=== PATIENT | male | born 1935 | race Caucasian/White ===

== ENCOUNTER 2019-01-26 17:29 | Emergency (ER) | payer MEDICARE, OTHER ==
[2019-01-26] MEDS ORDERED: SODIUM CHLORIDE 0.9% 500 ML 500 ML IV STA (18:48)
--- NOTE | 2019-01-26 19:06 | ED ---
General Adult HPI - General Source: patient, RN notes reviewed, old records reviewed Mode of arrival: wheelchair Limitations: no limitations <Fidencio Pereyra - Last Filed: 01/26/19 22:50> <Maryam Mantilla - Last Filed: 01/28/19 07:20> - General Chief complaint: Dizziness Stated complaint: DIZZY Time Seen by Provider: 01/26/19 18:30 - History of Present Illness Initial comments: 83-year-old male patient presents to ED with chief complaint of disequilibrium. Patient was that has been ongoing for approximately 2 years however has been worse within the last 2 months and then has also been worse in the last 2 days. Patient reports that while walking he has difficulty maintaining a sense of balance. Patient denies any symptoms while at rest. Patient denies any recent falls or trauma. Patient denies any circumstances of facial droop, paresthesias, weakness in upper or lower extremities. Has a personal history of stroke. Patient has a chest pain shortness breath abdominal pain nausea vomiting or diarrhea. Denies any auditory sensations, tinnitus. Denies any other complaints at this time. Systemic: Pt denies fatigue, fever/chills, rash. Pt denies weakness, night sweats, weight loss. Neuro: Pt denies headache, visual disturbances, syncope or pre-syncope. HEENT: Pt denies ocular discharge or irritation, otalgia, rhinorrhea, pharyngitis or notable lymphadenopathy. Cardiopulmonary: Pt denies chest pain, SOB, heart palpitations, dyspnea on exertion. Abdominal/GI: Pt denies abdominal pain, n/v/d. : Pt denies dysuria, burning w/ urination, frequency/urgency. Denies new onset urinary or bowel incontinence. MSK: Pt denies myalgia, loss of strength or function in extremities. Neuro: Pt denies new onset weakness, paresthesias. (Fidencio Pereyra) - Related Data Home Medications Medication Instructions Recorded Confirmed Clopidogrel Bisulfate [Plavix] 75 mg PO DAILY 12/12/14 01/26/19 Irbesartan [Avapro] 300 mg PO DAILY 12/12/14 01/26/19 Metoprolol Succinate [Toprol XL] 50 mg PO DAILY 12/12/14 01/26/19 Niacin [Niaspan] 1,000 mg PO HS 12/12/14 01/26/19 Pravastatin Sodium [Pravachol] 20 mg PO DAILY 12/12/14 01/26/19 amLODIPine [Norvasc] 5 mg PO DAILY 12/12/14 01/26/19 Aspirin EC [Ecotrin Low Dose] 81 mg PO DAILY 01/26/19 01/26/19 Desloratadine 5 mg PO DAILY 01/26/19 01/26/19 Glimepiride [Amaryl] 4 mg PO BID 01/26/19 01/26/19 Levothyroxine Sodium [Synthroid] 25 mcg PO DAILY 01/26/19 01/26/19 Spironolactone-Hctz 25-25Mg 0.5 tab PO DAILY 01/26/19 01/26/19 [Aldactazide 25-25Mg] Previous Rx's Medication Instructions Recorded Meclizine [Antivert] 25 mg PO TID #20 tab 12/12/14 Allergies Allergy/AdvReac Type Severity Reaction Status Date / Time No Known Allergies Allergy Verified 01/26/19 18:30 Review of Systems ROS Other: All systems not noted in ROS Statement are negative. <Fidencio Pereyra - Last Filed: 01/26/19 22:50> ROS Other: All systems not noted in ROS Statement are negative. <Maryam Mantilla - Last Filed: 01/28/19 07:20> ROS Statement: Those systems with pertinent positive or pertinent negative responses have been documented in the HPI. Past Medical History Past Medical History: Diabetes Mellitus, Hypertension History of Any Multi-Drug Resistant Organisms: None Reported Past Surgical History: Adenoidectomy, Heart Catheterization With Stent, Tonsillectomy Additional Past Surgical History / Comment(s): open heart Past Anesthesia/Blood Transfusion Reactions: No Reported Reaction Date of Last Stent Placement:: unknown Past Psychological History: No Psychological Hx Reported Smoking Status: Former smoker Past Alcohol Use History: None Reported Past Drug Use History: None Reported <Fidencio Pereyra - Last Filed: 01/26/19 22:50> General Exam Limitations: no limitations <Fidencio Pereyra - Last Filed: 01/26/19 22:50> - General Exam Comments Initial Comments: Constitutional: NAD, AOX3, Pt has pleasant affect. HEENT: NC/AT, trachea midline, neck supple, no lymphadenopathy. Posterior pharynx non erythematous, without exudates. External ears appear normal, without discharge. Mucous membranes moist. Eyes PERRLA, EOM intact. There is no scleral icterus. No pallor noted. Cardiopulmonary: RRR, no murmurs, rubs or gallops, no JVD noted. Lungs CTAB in anterior and posterior almodovar. No peripheral edema. Abdominal exam: Abdomen soft and non-distended. Abdomen non-tender to palpation in all 4 quadrants. Bowel sounds active in LLQ. No hepatosplenomegaly. No ecchymosis Neuro: CN II-XII intact. No nuchal rigidity. No raccon eyes, no more sign, no hemotympanum. No cervical spinal tenderness. NIH 0. MSK: No posterior calf tenderness bilaterally, homans sign negative bilaterally. Posterior tibialis and radial pulse +2 bilaterally. Sensation intact in upper and lower extremities. Full active ROM in upper and lower extremities, 5/5 stregnth. (Fidencio Pereyra) Course Vital Signs 01/26/19 01/26/19 01/26/19 18:09 20:05 20:48 Temperature 98.6 F Pulse Rate 68 62 61 Respiratory 18 18 18 Rate Blood Pressure 147/90 139/63 130/77 O2 Sat by Pulse 99 98 97 Oximetry 01/26/19 22:09 Temperature 97.9 F Pulse Rate 74 Respiratory 16 Rate Blood Pressure 166/69 O2 Sat by Pulse 99 Oximetry Medical Decision Making - Lab Data Result diagrams: 01/26/19 19:21 01/26/19 18:49 - EKG Data -: EKG Interpreted by Me (and Dr. Mantilla ) <Fidencio Pereyra - Last Filed: 01/26/19 22:50> - Lab Data Result diagrams: 01/26/19 19:21 01/26/19 18:49 <Maryam Mantilla - Last Filed: 01/28/19 07:20> - Medical Decision Making 83-year-old male patient presents to ED with chief complaint of disequilibrium. Patient was that has been ongoing for approximately 2 years however has been worse within the last 2 months and then has also been worse in the last 2 days. Patient reports that while walking he has difficulty maintaining a sense of balance. Patient denies any symptoms while at rest. Patient denies any recent falls or trauma. Patient denies any circumstances of facial droop, paresthesias, weakness in upper or lower extremities. Has a personal history of stroke. Patient has a chest pain shortness breath abdominal pain nausea vomiting or diarrhea. Denies any auditory sensations, tinnitus. Denies any o ther complaints at this time. Patient vital signs stable, afebrile. Physical exam did not acute pathology. Neurologic exam within normal limits. No nystagmus. Laboratory investigations revealed moderate impressive CBC, CMP. Troponin negative. TSH within couple limits. K do not concerning for acute ischemia. CT of brain revealed mild generalized atrophy and changes of chronic small vessel ischemic disease, no acute intracranial abnormality. Severe chronic pansinusitis sees. Patient was discharged, will follow up with neurologist tomorrow. Patient returned yet patient worsens. Patient to follow up with primary care starting tomorrow. Case discussed with Dr. Mantilla. (Fidencio Pereyra) I was available for consultation in the emergency department. The history and physical exam were done by the midlevel provider. I was consulted for this patient's care. I reviewed the case with the midlevel provider and based on their presentation of the patient, I agree with the assessment, medical decision making and plan of care as documented. Chart was dictated using [employer] dictation software. Attempts were made to correct any dictation errors however some typographical errors may persist. (Maryam Mantilla) - Lab Data Lab Results 01/26/19 01/26/19 01/26/19 Range/Units 18:49 19:21 19:21 WBC 5.2 (3.8-10.6) k/uL RBC 3.61 L (4.30-5.90) m/uL Hgb 13.0 (13.0-17.5) gm/dL Hct 39.2 (39.0-53.0) % MCV 108.5 H (80.0-100.0) fL MCH 35.9 H (25.0-35.0) pg MCHC 33.1 (31.0-37.0) g/dL RDW 15.7 H (11.5-15.5) % Plt Count 143 L (150-450) k/uL Neutrophils % (Manual) 50 % Band Neutrophils % 1 % Lymphocytes % (Manual) 31 % Monocytes % (Manual) 6 % Eosinophils % (Manual) 12 % Neutrophils # (Manual) 2.60 (1.3-7.7) k/uL Lymphocytes # (Manual) 1.61 (1.0-4.8) k/uL Monocytes # (Manual) 0.31 (0-1.0) k/uL Eosinophils # (Manual) 0.62 (0-0.7) k/uL Nucleated RBCs 0 (0-0) /100 WBC Manual Slide Review Performed Macrocytosis Marked A Sodium 140 (137-145) mmol/L Potassium 4.5 (3.5-5.1) mmol/L Chloride 103 (98-107) mmol/L Carbon Dioxide 27 (22-30) mmol/L Anion Gap 10 mmol/L BUN 16 (9-20) mg/dL Creatinine 0.91 (0.66-1.25) mg/dL Est GFR (CKD-EPI)AfAm 89 (>60 ml/min/1.73 sqM) Est GFR (CKD-EPI)NonAf 77 (>60 ml/min/1.73 sqM) Glucose 148 H (74-99) mg/dL Calcium 9.7 (8.4-10.2) mg/dL Magnesium 2.0 (1.6-2.3) mg/dL Total Bilirubin 0.9 (0.2-1.3) mg/dL AST 23 (17-59) U/L ALT 16 L (21-72) U/L Alkaline Phosphatase 79 (38-126) U/L Troponin I <0.012 (0.000-0.034) ng/mL Total Protein 7.6 (6.3-8.2) g/dL Albumin 4.7 (3.5-5.0) g/dL TSH 4.580 (0.465-4.680) mIU/L Urine Color Urine Appearance (Clear) Urine pH (5.0-8.0) Ur Specific [place] (1.001-1.035) Urine Protein (Negative) Urine Glucose (UA) (Negative) Urine Ketones (Negative) Urine Blood (Negative) Urine Nitrite (Negative) Urine Bilirubin (Negative) Urine Urobilinogen (<2.0) mg/dL Ur Leukocyte Esterase (Negative) Urine WBC (0-5) /hpf Ur Squamous Epith Cells (0-4) /hpf Hyaline Casts (0-2) /lpf Urine Mucus (None) /hpf 06/30/19 Range/Units 20:47 WBC (3.8-10.6) k/uL RBC (4.30-5.90) m/uL Hgb (13.0-17.5) gm/dL Hct (39.0-53.0) % MCV (80.0-100.0) fL MCH (25.0-35.0) pg MCHC (31.0-37.0) g/dL RDW (11.5-15.5) % Plt Count (150-450) k/uL Neutrophils % (Manual) % Band Neutrophils % % Lymphocytes % (Manual) % Monocytes % (Manual) % Eosinophils % (Manual) % Neutrophils # (Manual) (1.3-7.7) k/uL Lymphocytes # (Manual) (1.0-4.8) k/uL Monocytes # (Manual) (0-1.0) k/uL Eosinophils # (Manual) (0-0.7) k/uL Nucleated RBCs (0-0) /100 WBC Manual Slide Review Macrocytosis Sodium (137-145) mmol/L Potassium (3.5-5.1) mmol/L Chloride (98-107) mmol/L Carbon Dioxide (22-30) mmol/L Anion Gap mmol/L BUN (9-20) mg/dL Creatinine (0.66-1.25) mg/dL Est GFR (CKD-EPI)AfAm (>60 ml/min/1.73 sqM) Est GFR (CKD-EPI)NonAf (>60 ml/min/1.73 sqM) Glucose (74-99) mg/dL Calcium (8.4-10.2) mg/dL Magnesium (1.6-2.3) mg/dL Total Bilirubin (0.2-1.3) mg/dL AST (17-59) U/L ALT (21-72) U/L Alkaline Phosphatase (38-126) U/L Troponin I (0.000-0.034) ng/mL Total Protein (6.3-8.2) g/dL Albumin (3.5-5.0) g/dL TSH (0.465-4.680) mIU/L Urine Color Yellow Urine Appearance Clear (Clear) Urine pH 5.5 (5.0-8.0) Ur Specific [place] 1.019 (1.001-1.035) Urine Protein 1+ H (Negative) Urine Glucose (UA) Trace H (Negative) Urine Ketones Negative (Negative) Urine Blood Negative (Negative) Urine Nitrite Negative (Negative) Urine Bilirubin Negative (Negative) Urine Urobilinogen <2.0 (<2.0) mg/dL Ur Leukocyte Esterase Negative (Negative) Urine WBC 1 (0-5) /hpf Ur Squamous Epith Cells <1 (0-4) /hpf Hyaline Casts 1 (0-2) /lpf Urine Mucus Rare H (None) /hpf - EKG Data EKG Comments: Ventricular rate 64, UT interval 176, QRS 82, QT/QTC 390/40. Normal sinus rhythm, normal EKG, no concern for acute ischemia. (Fidencio Pereyra) Disposition Is patient prescribed a controlled substance at d/c from ED?: No <Fidencio Pereyra - Last Filed: 01/26/19 22:50> <Maryam Mantilla - Last Filed: 01/28/19 07:20> Clinical Impression: Disequilibrium Disposition: HOME SELF-CARE Condition: Stable Instructions (If sedation given, give patient instructions): Dizziness (ED) Additional Instructions: Patient to adhere to previously discussed treatment plan and will take medication(s) as directed. Patient to follow up with PCP in 1-2 days. Patient to return to ED if symptoms do not improve. Follopw up with primary care provider tomorrow. Follow-up with neurologist tomorrow. Return to ER if condition worsens. Referrals: Mayur Song MD [Primary Care Provider] - 1-2 days Anne Genao MD [Medical Doctor] - 1-2 days Benja Tucker MD [STAFF PHYSICIAN] - 1-2 days
[2019-01-26 20:04] LABS: HCT 39.2 % (39.0-53.0); MCH 35.9 pg (25.0-35.0); MCHC 33.1 g/dL (31.0-37.0); MCV 108.5 fL (80.0-100.0); Macrocytosis Marked; Mean Platelet Volume 9.3; Platelet Count 143 k/uL (150-450); RBC 3.61 m/uL (4.30-5.90); RDW 15.7 % (11.5-15.5); WBC 5.2 k/uL (3.8-10.6)
[2019-01-26 20:22] LABS: Albumin 4.7 g/dL (3.5-5.0); Calcium 9.7 mg/dL (8.4-10.2); Potassium 4.5 mmol/L (3.5-5.1); Total Bilirubin 0.9 mg/dL (0.2-1.3); Total Protein 7.6 g/dL (6.3-8.2)
[2019-01-26 20:36] LABS: Band Neutrophils % 1 %; Eosinophils # (M) 0.62 k/uL (0-0.7); Lymphocytes # (M) 1.61 k/uL (1.0-4.8); Monocytes # (M) 0.31 k/uL (0-1.0); Neutrophils % (M) 50 %; Nucleated Red Blood Cells 0 /100 WBC (0-0); Total Cells Counted 100
--- NOTE | 2019-01-26 20:44 | CT ---
EXAMINATION TYPE: CT brain wo con DATE OF EXAM: 01/26/2019 COMPARISON: 12/12/2014 HISTORY: 83-year-old male Dizziness. TECHNIQUE: Examination was done in axial plane without intravenous contrast. Coronal and sagittal r econstructions performed. CT DLP: 1074.4 mGycm Automated exposure control for dose reduction was used. FINDINGS: There is no evidence of acute intracranial hemorrhage, acute ischemic changes, mass, mass-effect, or extra-axial fluid collection. There is no effacement of cerebral sulci or basal subarachnoid cister ns. There is no hydrocephalus. There is no midline shift. Chatman-white matter distinction is preserv ed. Severe mucosal thickening ethmoid air cells, left maxillary sinus, and left frontal sinus. Mastoid ai r cells well pneumatized. Mild generalized supratentorial volume loss with moderate patchy white matter hypodensities in both c erebral hemispheres. Benign left basal ganglionic calcifications with lacunar infarct left basal gang loan redemonstrated. IMPRESSION: 1. Mild generalized atrophy and changes of chronic small vessel ischemic disease. No acute intracrani al abnormality seen. 2. Severe chronic pansinusitis disease.
[2019-01-26 22:04] LABS: Appearance,Urine Clear (Clear); Bilirubin,Urine Negative (Negative); Blood,Urine Negative (Negative); Color,Urine Yellow; Glucose,Urine (UA) Trace (Negative); Hyaline Casts,Urine 1 /lpf (0-2); Ketones,Urine Negative (Negative); Leukocyte Esterase,Urine Negative (Negative); Mucus,Urine Rare /hpf; Nitrite,Urine Negative (Negative); PH, Urine 5.5 (5.0-8.0); Protein,Urine 1+ (Negative); Specific Gravity,Urine 1.019 (1.001-1.035); Squamous Epithelial Cell,Urine <1 /hpf (0-4); Urobilinogen,Urine <2.0 mg/dL (<2.0); WBC,Urine 1 /hpf (0-5)
[2019-01-26 22:10] VITALS: BP 166/69; PULSE 74; RESP 16; TEMP 97.9
== END 2019-01-26 22:23 | disposition home or self-care (01) ==
LOC: EC 17:29
DX: E87.8 Other disorders of electrolyte and fluid balance, not elsewhere classified (principal); G31.9 Degenerative disease of nervous system, unspecified; E11.9 Type 2 diabetes mellitus without complications; I10 Essential (primary) hypertension; Z87.891 Personal history of nicotine dependence; Z79.01 Long term (current) use of anticoagulants; Z79.82 Long term (current) use of aspirin; Z79.84 Long term (current) use of oral hypoglycemic drugs; Z79.890 Hormone replacement therapy; Z79.899 Other long term (current) drug therapy; Z95.5 Presence of coronary angioplasty implant and graft
CPT/HCPCS: 36415; 70450; 80053; 81001; 83735; 84443; 84484; 85025; 93005; 96360; 96361; 99285

== ENCOUNTER 2019-07-31 10:33 | Inpatient (IN) | payer MEDICARE ==
[2019-07-31] MEDS ORDERED: ASPIRIN 81 MG PO STA (10:54)
--- NOTE | 2019-07-31 11:19 | XR ---
EXAMINATION TYPE: XR chest 2V DATE OF EXAM: 07/31/2019 COMPARISON: 12/12/2014 TECHNIQUE: PA and lateral views submitted. HISTORY: Shortness of breath FINDINGS: Postsurgical changes with atherosclerotic change aorta. Bibasilar subsegmental consolidation and tiny effusion. Heart size is stable. Mild central interstitial prominence. No overt failure. IMPRESSION: 1. Tiny bilateral pleural effusions or pleural thickening correlate clinically. 2. Mild central interstitial prominence could been the basis of bronchitis or interstitial lung disea se. Correlate clinically to exclude vascular congestion.
[2019-07-31 11:26] LABS: MCH 39.4 pg (25.0-35.0); MCHC 35.4 g/dL (31.0-37.0); MCV 111.4 fL (80.0-100.0); Macrocytosis Marked; Mean Platelet Volume 14.9; RBC 1.72 m/uL (4.30-5.90); RDW 15.5 % (11.5-15.5)
[2019-07-31 11:29] LABS: Glucose,Whole Blood 256 mg/dL (75-99)
[2019-07-31 11:30] LABS: Albumin 3.9 g/dL (3.5-5.0); Calcium 9.3 mg/dL (8.4-10.2); Magnesium 2.1 mg/dL (1.6-2.3); Potassium 5.3 mmol/L (3.5-5.1); Total Protein 6.6 g/dL (6.3-8.2)
[2019-07-31] MEDS ORDERED: INSULIN ASPART (NovoLOG) 100 UNIT/ML VIAL SQ ONE (11:35)
[2019-07-31 11:58] LABS: HCT 19.1 % (39.0-53.0)
[2019-07-31 12:00] LABS: HGB 6.8 gm/dL (13.0-17.5)
[2019-07-31 12:01] LABS: Platelet Count 15 k/uL (150-450)
[2019-07-31 12:10] LABS: INR 1.2 (<1.2); Partial Thromboplastin Time 23.5 sec (22.0-30.0); Prothrombin Time 12.4 sec (9.0-12.0)
[2019-07-31 12:21] LABS: Myelocytes # (M) 0.06 k/uL (0); Myelocytes % 2 %; Neutrophils % (M) 42 %; Nucleated Red Blood Cells 2 /100 WBC (0-0); Total Cells Counted 200
[2019-07-31 12:22] LABS: Eosinophils # (M) 0.27 k/uL (0-0.7); Lymphocytes # (M) 1.26 k/uL (1.0-4.8); Monocytes # (M) 0.18 k/uL (0-1.0); Neutrophils # (M) 1.26 k/uL (1.3-7.7)
--- NOTE | 2019-07-31 12:27 | ED ---
General Adult HPI - General Chief complaint: Shortness of Breath Stated complaint: SOB Time Seen by Provider: 07/31/19 10:44 Source: patient, RN notes reviewed, old records reviewed Mode of arrival: wheelchair Limitations: no limitations - History of Present Illness Initial comments: 84-year-old with past history of type 2 diabetes, hypertension, CABG appr oximately 20 years ago presents to the chief complaint approximate 1 month of progressive dyspnea with exertion. Denies any chest pain. Denies any pain in any locations. Denies any other complaints. Systemic: Pt denies fatigue, fever/chills, rash. Pt denies weakness, night sweats, weight loss. Neuro: Pt denies headache, visual disturbances, syncope or pre-syncope. HEENT: Pt denies ocular discharge or irritation, otalgia, rhinorrhea, pharyngitis or notable lymphadenopathy. Cardiopulmonary: Pt denies chest pain, heart palpitations, dyspnea on exertion. Abdominal/GI: Pt denies abdominal pain, n/v/d. : Pt denies dysuria, burning w/ urination, frequency/urgency. Denies new onset urinary or bowel incontinence. MSK: Pt denies myalgia, loss of strength or function in extremities. Neuro: Pt denies new onset weakness, paresthesias. - Related Data Home Medications Medication Instructions Recorded Confirmed Clopidogrel Bisulfate [Plavix] 75 mg PO DAILY 12/12/14 07/31/19 Irbesartan [Avapro] 300 mg PO DAILY 12/12/14 07/31/19 Metoprolol Succinate [Toprol XL] 50 mg PO DAILY 12/12/14 07/31/19 Niacin [Niaspan] 1,000 mg PO HS 12/12/14 07/31/19 Pravastatin Sodium [Pravachol] 20 mg PO DAILY 12/12/14 07/31/19 amLODIPine [Norvasc] 5 mg PO DAILY 12/12/14 07/31/19 Aspirin EC [Ecotrin Low Dose] 81 mg PO DAILY 01/26/19 07/31/19 Desloratadine 5 mg PO DAILY 01/26/19 07/31/19 Glimepiride [Amaryl] 4 mg PO BID 01/26/19 07/31/19 Levothyroxine Sodium [Synthroid] 25 mcg PO DAILY 06/30/19 01/02/20 Spironolactone-Hctz 25-25Mg 0.5 tab PO DAILY 01/26/19 07/31/19 [Aldactazide 25-25Mg] Brimonidine Tartrate/Timolol 1 drop BOTH EYES BID 07/31/19 07/31/19 [Combigan 0.2%-0.5% Eye Drops] Insulin Glargine,Hum.rec.anlog 50 unit SQ QAM 07/31/19 07/31/19 [Nata Smith] Netarsudil Mesylat/Latanoprost 1 drop BOTH EYES BID 07/31/19 07/31/19 [Rocklatan 0.02%-0.005% Eye Drp] Allergies Allergy/AdvReac Type Severity Reaction Status Date / Time insulin degludec Allergy Rash/Hives Verified 07/31/19 11:53 [From TresiWochit FlexTouch U-100] Review of Systems ROS Statement: Those systems with pertinent positive or pertinent negative responses have been documented in the HPI. ROS Other: All systems not noted in ROS Statement are negative. Past Medical History Past Medical History: Diabetes Mellitus, Hypertension History of Any Multi-Drug Resistant Organisms: None Reported Past Surgical History: Adenoidectomy, Heart Catheterization With Stent, Tonsillectomy Additional Past Surgical History / Comment(s): open heart Past Anesthesia/Blood Transfusion Reactions: No Reported Reaction Date of Last Stent Placement:: unknown Past Psychological History: No Psychological Hx Reported Smoking Status: Former smoker Past Alcohol Use History: None Reported Past Drug Use History: None Reported General Exam - General Exam Comments Initial Comments: Constitutional: NAD, AOX3, Pt has pleasant affect. HEENT: NC/AT, trachea midline, neck supple, no lymphadenopathy. Posterior pharynx non erythematous, without exudates. External ears appear normal, without discharge. Mucous membranes moist. Eyes PERRLA, EOM intact. There is no scleral icterus. No pallor noted. Cardiopulmonary: RRR, no murmurs, rubs or gallops, no JVD noted. Lungs CTAB in anterior and posterior almodovar. No peripheral edema. Abdominal exam: Abdomen soft and non-distended. Abdomen non-tender to palpation in all 4 quadrants. Bowel sounds active in LLQ. No hepatosplenomegaly. No ecchymosis Neuro: CN II-XII grossly intact. No nuchal rigidity. No raccon eyes, no more sign, no hemotympanum. No cervical spinal tenderness. MSK: No posterior calf tenderness bilaterally, homans sign negative bilaterally. Posterior tibialis and radial pulse +2 bilaterally. Sensation intact in upper and lower extremities. Full active ROM in upper and lower extremities, 5/5 stregnth. Limitations: no limitations Course Vital Signs 07/31/19 07/31/19 07/31/19 10:35 10:48 14:05 Temperature 97.6 F 97.6 F Pulse Rate 59 L 62 64 Respiratory 19 22 Rate Blood Pressure 99/51 104/50 96/62 O2 Sat by Pulse 90 L 100 100 Oximetry 07/31/19 15:01 Temperature 97.8 F Pulse Rate 64 Respiratory 18 Rate Blood Pressure 112/56 O2 Sat by Pulse 100 Oximetry Procedures - [place] Protocol (Time Out) Nurse: Pamela Julien Medical Decision Making - Medical Decision Making 84-year-old male patient presents to ED for chief complaint of dyspnea on exertion for approximately one month. Denies any other complaints. Patient vital signs are stable, afebrile. Physical examination did not display acute pathology. EKG was conducted which displayed new lateral T-wave inversions, patient was administered one aspirin. Lopressor investigations were drawn rev eal pancytopenia, hemoglobin 6.8, platelet count of 15. Mild tachycardia, BUN 36. Troponin 0.047 mildly elevated in context of chronic kidney disease. BNP 5000. Further shaking this time reveal the patient has been having dark stools. Patient administered transfusion of platelets and red cells. Hemoccult was conducted. And was positive. EKG did display some lateral T-wave inversions which are new. Troponin mildly elevated. This is likely more demand ischemia. Chest x-ray and display overt heart failure. Patient initiated on Protonix. Case was discussed with admitting physician - Lab Data Result diagrams: 07/31/19 10:56 07/31/19 10:56 Lab Results 07/31/19 07/31/19 07/31/19 Range/Units 10:56 10:56 10:56 WBC 3.0 L (3.8-10.6) k/uL RBC 1.72 L (4.30-5.90) m/uL Hgb 6.8 L* (13.0-17.5) gm/dL Hct 19.1 L* (39.0-53.0) % MCV 111.4 H (80.0-100.0) fL MCH 39.4 H (25.0-35.0) pg MCHC 35.4 (31.0-37.0) g/dL RDW 15.5 (11.5-15.5) % Plt Count 15 L* (150-450) k/uL Neutrophils % (Manual) 42 % Lymphocytes % (Manual) 42 % Monocytes % (Manual) 6 % Eosinophils % (Manual) 9 % Myelocytes % 2 % Neutrophils # (Manual) 1.26 L (1.3-7.7) k/uL Lymphocytes # (Manual) 1.26 (1.0-4.8) k/uL Monocytes # (Manual) 0.18 (0-1.0) k/uL Eosinophils # (Manual) 0.27 (0-0.7) k/uL Myelocytes # (Manual) 0.06 H (0) k/uL Nucleated RBCs 2 H (0-0) /100 WBC Manual Slide Review Performed Macrocytosis Marked A PT (9.0-12.0) sec INR (<1.2) APTT (22.0-30.0) sec Sodium 137 (137-145) mmol/L Potassium 5.3 H (3.5-5.1) mmol/L Chloride 107 (98-107) mmol/L Carbon Dioxide 18 L (22-30) mmol/L Anion Gap 12 mmol/L BUN 36 H (9-20) mg/dL Creatinine 1.59 H (0.66-1.25) mg/dL Est GFR (CKD-EPI)AfAm 45 (>60 ml/min/1.73 sqM) Est GFR (CKD-EPI)NonAf 39 (>60 ml/min/1.73 sqM) Glucose 259 H (74-99) mg/dL POC Glucose (mg/dL) (75-99) mg/dL POC Glu Tack Coverer ID Calcium 9.3 (8.4-10.2) mg/dL Magnesium 2.1 (1.6-2.3) mg/dL Total Bilirubin 1.0 (0.2-1.3) mg/dL AST 27 (17-59) U/L ALT 13 (4-49) U/L Alkaline Phosphatase 84 (38-126) U/L Troponin I (0.000-0.034) ng/mL NT-Pro-B Natriuret Pep 5050 pg/mL Total Protein 6.6 (6.3-8.2) g/dL Albumin 3.9 (3.5-5.0) g/dL Stool Occult Blood (Negative) Blood Type Blood Type Confirm Blood Type Recheck Bld Type Recheck Status Antibody Screen Crossmatch Transfuse Platelets Spec Expiration Date 07/31/19 07/31/19 07/31/19 Range/Units 10:56 10:56 11:27 WBC (3.8-10.6) k/uL RBC (4.30-5.90) m/uL Hgb (13.0-17.5) gm/dL Hct (39.0-53.0) % MCV (80.0-100.0) fL MCH (25.0-35.0) pg MCHC (31.0-37.0) g/dL RDW (11.5-15.5) % Plt Count (150-450) k/uL Neutrophils % (Manual) % Lymphocytes % (Manual) % Monocytes % (Manual) % Eosinophils % (Manual) % Myelocytes % % Neutrophils # (Manual) (1.3-7.7) k/uL Lymphocytes # (Manual) (1.0-4.8) k/uL Monocytes # (Manual) (0-1.0) k/uL Eosinophils # (Manual) (0-0.7) k/uL Myelocytes # (Manual) (0) k/uL Nucleated RBCs (0-0) /100 WBC Manual Slide Review Macrocytosis PT 12.4 H (9.0-12.0) sec INR 1.2 H (<1.2) APTT 23.5 (22.0-30.0) sec Sodium (137-145) mmol/L Potassium (3.5-5.1) mmol/L Chloride (98-107) mmol/L Carbon Dioxide (22-30) mmol/L Anion Gap mmol/L BUN (9-20) mg/dL Creatinine (0.66-1.25) mg/dL Est GFR (CKD-EPI)AfAm (>60 ml/min/1.73 sqM) Est GFR (CKD-EPI)NonAf (>60 ml/min/1.73 sqM) Glucose (74-99) mg/dL POC Glucose (mg/dL) 256 H (75-99) mg/dL POC Glu Tack Coverer ID Iris Calderon Calcium (8.4-10.2) mg/dL Magnesium (1.6-2.3) mg/dL Total Bilirubin (0.2-1.3) mg/dL AST (17-59) U/L ALT (4-49) U/L Alkaline Phosphatase (38-126) U/L Troponin I 0.047 H* (0.000-0.034) ng/mL NT-Pro-B Natriuret Pep pg/mL Total Protein (6.3-8.2) g/dL Albumin (3.5-5.0) g/dL Stool Occult Blood (Negative) Blood Type Blood Type Confirm Blood Type Recheck Bld Type Recheck Status Antibody Screen Crossmatch Transfuse Platelets Spec Expiration Date 07/31/19 07/31/19 07/31/19 Range/Units 13:00 13:05 13:17 WBC (3.8-10.6) k/uL RBC (4.30-5.90) m/uL Hgb (13.0-17.5) gm/dL Hct (39.0-53.0) % MCV (80.0-100.0) fL MCH (25.0-35.0) pg MCHC (31.0-37.0) g/dL RDW (11.5-15.5) % Plt Count (150-450) k/uL Neutrophils % (Manual) % Lymphocytes % (Manual) % Monocytes % (Manual) % Eosinophils % (Manual) % Myelocytes % % Neutrophils # (Manual) (1.3-7.7) k/uL Lymphocytes # (Manual) (1.0-4.8) k/uL Monocytes # (Manual) (0-1.0) k/uL Eosinophils # (Manual) (0-0.7) k/uL Myelocytes # (Manual) (0) k/uL Nucleated RBCs (0-0) /100 WBC Manual Slide Review Macrocytosis PT (9.0-12.0) sec INR (<1.2) APTT (22.0-30.0) sec Sodium (137-145) mmol/L Potassium (3.5-5.1) mmol/L Chloride (98-107) mmol/L Carbon Dioxide (22-30) mmol/L Anion Gap mmol/L BUN (9-20) mg/dL Creatinine (0.66-1.25) mg/dL Est GFR (CKD-EPI)AfAm (>60 ml/min/1.73 sqM) Est GFR (CKD-EPI)NonAf (>60 ml/min/1.73 sqM) Glucose (74-99) mg/dL POC Glucose (mg/dL) (75-99) mg/dL POC Glu Tack Coverer ID Calcium (8.4-10.2) mg/dL Magnesium (1.6-2.3) mg/dL Total Bilirubin (0.2-1.3) mg/dL AST (17-59) U/L ALT (4-49) U/L Alkaline Phosphatase (38-126) U/L Troponin I (0.000-0.034) ng/mL NT-Pro-B Natriuret Pep pg/mL Total Protein (6.3-8.2) g/dL Albumin (3.5-5.0) g/dL Stool Occult Blood Positive (Negative) Blood Type B Positive Blood Type Confirm B Positive Blood Type Recheck No Previous Record Bld Type Recheck Status CABO Indicated Antibody Screen NEGATIVE Crossmatch See Detail Transfuse Platelets Spec Expiration Date 08/03/2019 - 230407/31/19 Range/Units 13:50 WBC (3.8-10.6) k/uL RBC (4.30-5.90) m/uL Hgb (13.0-17.5) gm/dL Hct (39.0-53.0) % MCV (80.0-100.0) fL MCH (25.0-35.0) pg MCHC (31.0-37.0) g/dL RDW (11.5-15.5) % Plt Count (150-450) k/uL Neutrophils % (Manual) % Lymphocytes % (Manual) % Monocytes % (Manual) % Eosinophils % (Manual) % Myelocytes % % Neutrophils # (Manual) (1.3-7.7) k/uL Lymphocytes # (Manual) (1.0-4.8) k/uL Monocytes # (Manual) (0-1.0) k/uL Eosinophils # (Manual) (0-0.7) k/uL Myelocytes # (Manual) (0) k/uL Nucleated RBCs (0-0) /100 WBC Manual Slide Review Macrocytosis PT (9.0-12.0) sec INR (<1.2) APTT (22.0-30.0) sec Sodium (137-145) mmol/L Potassium (3.5-5.1) mmol/L Chloride (98-107) mmol/L Carbon Dioxide (22-30) mmol/L Anion Gap mmol/L BUN (9-20) mg/dL Creatinine (0.66-1.25) mg/dL Est GFR (CKD-EPI)AfAm (>60 ml/min/1.73 sqM) Est GFR (CKD-EPI)NonAf (>60 ml/min/1.73 sqM) Glucose (74-99) mg/dL POC Glucose (mg/dL) (75-99) mg/dL POC Glu Tack Coverer ID Calcium (8.4-10.2) mg/dL Magnesium (1.6-2.3) mg/dL Total Bilirubin (0.2-1.3) mg/dL AST (17-59) U/L ALT (4-49) U/L Alkaline Phosphatase (38-126) U/L Troponin I (0.000-0.034) ng/mL NT-Pro-B Natriuret Pep pg/mL Total Protein (6.3-8.2) g/dL Albumin (3.5-5.0) g/dL Stool Occult Blood (Negative) Blood Type Blood Type Confirm Blood Type Recheck Bld Type Recheck Status Antibody Screen Crossmatch Transfuse Platelets 07/31/2019 Spec Expiration Date - EKG Data -: EKG Interpreted by Me (and Dr. Collazo) EKG Comments: Ventricular rate 76, pO2 2, QRS 86, QT/QTC 384/432. Normal sinus rhythm, ST-T wave abnormality. Lateral T-wave inversion are noted. Disposition Clinical Impression: GI bleed, Pancytopenia Disposition: ADMITTED IP TO THIS [facility] Condition: Serious Is patient prescribed a controlled substance at d/c from ED?: No Referrals: Mayur Song MD [Primary Care Provider] - 1-2 days
[2019-07-31] MEDS ORDERED: PANTOPRAZOLE 40 MG/10 ML VIAL IVP STA (13:33)
[2019-07-31] MEDS ORDERED: PANTOPRAZOLE 40 MG/10 ML VIAL IVP ONE (13:35)
[2019-07-31] MEDS ORDERED: NITROGLYCERIN SL TABS 0.4 MG TAB SUBLINGUAL PRN (15:10)
[2019-07-31] MEDS ORDERED: ACETAMINOPHEN TAB 325 MG TAB PO PRN (15:58)
[2019-07-31] MEDS ORDERED: NALOXONE 0.4 MG/ML 1 ML VIAL IV PRN (15:58)
--- NOTE | 2019-07-31 15:58 | P.HPIM ---
History of Present Illness H&P Date: 07/31/19 Chief Complaint: Shortness of breath 84-year-old male with PMH of CAD post CABG and stent placement, glaucoma, diabetes mellitus on insulin, hypertension, hypothyroidism presents to the ED for shortness of breath with exertion. Patient reports 2 months of diarrhea that has been on and off. Patient reports having 5 bowel movements a day described as loose stool, normal color. He denies any melena or blood in his stools. Patient also reports shortness of breath over the last 2 months that is related to exertion. Patient reports it being difficult to walk down a small hallway or to the kitchen. He denies any orthopnea or lower extremity edema. Patient reports no colonoscopy in the past. He denies any headache, lower extremity edema, nausea or vomiting, fever or chills, chest pain, palpitations, changes in urination. He reports no changes in appetite or weight. He denies any dizziness, numbness/weakness/tingling of the extremities. He does report a cough productive of white sputum over the past 2 months as well. In the ED, vital signs were stable. He did have a marginally low BP of 99/51 with O2 sat of 90% on room air. CBC showed WBC count of 3, hemoglobin 6.8, platelet count 15. INR was 1.2. CMP showed potassium 5.3, bicarbonate 18, BUN 36, creatinine 1.59, glucose 259. Troponin was 0.047. BNP was 5050, chest x-ray showing bilateral pleural effusion tiny, central interstitial prominence. Stool for occult blood was positive. Patient is admitted for symptomatic anemia with GI and hematology on consult. Cardiology is consulted for elevated troponins. Patient is anticipated to stay for greater than 48 hours inpatient. Review of Systems Pertinent positives and negatives as discussed in HPI, a complete review of systems was performed and all other systems are negative. Past Medical History Past Medical History: Diabetes Mellitus, Hypertension History of Any Multi-Drug Resistant Organisms: None Reported Past Surgical History: Adenoidectomy, Heart Catheterization With Stent, Tonsil lectomy Additional Past Surgical History / Comment(s): open heart Past Anesthesia/Blood Transfusion Reactions: No Reported Reaction Date of Last Stent Placement:: unknown Past Psychological History: No Psychological Hx Reported Smoking Status: Former smoker Past Alcohol Use History: None Reported Past Drug Use History: None Reported Medications and Allergies Home Medications Medication Instructions Recorded Confirmed Type Clopidogrel Bisulfate [Plavix] 75 mg PO DAILY 12/12/14 07/31/19 History Irbesartan [Avapro] 300 mg PO DAILY 12/12/14 07/31/19 History Metoprolol Succinate [Toprol XL] 50 mg PO DAILY 12/12/14 07/31/19 History Niacin [Niaspan] 1,000 mg PO HS 12/12/14 07/31/19 History Pravastatin Sodium [Pravachol] 20 mg PO DAILY 12/12/14 07/31/19 History amLODIPine [Norvasc] 5 mg PO DAILY 12/12/14 07/31/19 History Aspirin EC [Ecotrin Low Dose] 81 mg PO DAILY 01/26/19 07/31/19 History Desloratadine 5 mg PO DAILY 01/26/19 07/31/19 History Glimepiride [Amaryl] 4 mg PO BID 01/26/19 07/31/19 History Levothyroxine Sodium [Synthroid] 25 mcg PO DAILY 01/26/19 07/31/19 History Spironolactone-Hctz 25-25Mg 0.5 tab PO DAILY 01/26/19 07/31/19 History [Aldactazide 25-25Mg] Brimonidine Tartrate/Timolol 1 drop BOTH EYES BID 07/31/19 07/31/19 History [Combigan 0.2%-0.5% Eye Drops] Insulin Glargine,Hum.rec.anlog 50 unit SQ QAM 07/31/19 07/31/19 History [Toujeo Max Solostar] Netarsudil Mesylat/Latanoprost 1 drop BOTH EYES BID 07/31/19 07/31/19 History [Rocklatan 0.02%-0.005% Eye Drp] Allergies Allergy/AdvReac Type Severity Reaction Status Date / Time insulin degludec Allergy Rash/Hives Verified 07/31/19 11:53 [From Tresiba FlexTouch U-100] Physical Exam Vitals: Vital Signs Temp Pulse Resp BP Pulse Ox 07/31/19 15:11 97.9 F 68 18 122/60 99 07/31/19 15:01 97.8 F 64 18 112/56 100 07/31/19 14:05 97.6 F 64 22 96/62 100 07/31/19 10:48 62 104/50 100 07/31/19 10:35 97.6 F 59 L 19 99/51 90 L Intake and Output 07/31/19 07/31/19 07/31/19 06:59 14:59 22:59 Intake Total 201 Balance 201 Intake: Blood Product 201 Platelet Pheresis Acda3 201 Unit [id number] Other: Weight 72.575 kg General: [non toxic], [no distress], [appears at stated age] Derm: [warm], [dry] Head: [atraumatic], [normocephalic], [symmetric] Eyes: [EOMI], [no lid lag], [pale sclera] Mouth: [no lip lesion], [mucus membranes moist] Cardiovascular: [S1S2 reg], [no murmur], [positive DP pulse bilateral], Lungs: [CTA bilateral], [no rhonchi, no rales] , [no accessory muscle use] Abdominal: [soft], [ nontender to palpation], [no guarding], [no appreciable organomegaly] Ext: [no gross muscle atrophy], [no edema], [no contractures] Neuro: [ CN II-XI grossly intact], [no focal neuro deficits] Psych: [Alert], [oriented], [appropriate affect] Results CBC & Chem 7: 07/31/19 10:56 07/31/19 10:56 Labs: Abnormal Lab Results - Last 24 Hours (Table) 07/31/19 07/31/19 07/31/19 Range/Units 10:56 10:56 10:56 WBC 3.0 L (3.8-10.6) k/uL RBC 1.72 L (4.30-5.90) m/uL Hgb 6.8 L* (13.0-17.5) gm/dL Hct 19.1 L* (39.0-53.0) % MCV 111.4 H (80.0-100.0) fL MCH 39.4 H (25.0-35.0) pg Plt Count 15 L* (150-450) k/uL Neutrophils # (Manual) 1.26 L (1.3-7.7) k/uL Myelocytes # (Manual) 0.06 H (0) k/uL Nucleated RBCs 2 H (0-0) /100 WBC Macrocytosis Marked A PT 12.4 H (9.0-12.0) sec INR 1.2 H (<1.2) Potassium 5.3 H (3.5-5.1) mmol/L Carbon Dioxide 18 L (22-30) mmol/L BUN 36 H (9-20) mg/dL Creatinine 1.59 H (0.66-1.25) mg/dL Glucose 259 H (74-99) mg/dL POC Glucose (mg/dL) (75-99) mg/dL Troponin I (0.000-0.034) ng/mL Crossmatch 07/31/19 07/31/19 07/31/19 Range/Units 10:56 11:27 13:05 WBC (3.8-10.6) k/uL RBC (4.30-5.90) m/uL Hgb (13.0-17.5) gm/dL Hct (39.0-53.0) % MCV (80.0-100.0) fL MCH (25.0-35.0) pg Plt Count (150-450) k/uL Neutrophils # (Manual) (1.3-7.7) k/uL Myelocytes # (Manual) (0) k/uL Nucleated RBCs (0-0) /100 WBC Macrocytosis PT (9.0-12.0) sec INR (<1.2) Potassium (3.5-5.1) mmol/L Carbon Dioxide (22-30) mmol/L BUN (9-20) mg/dL Creatinine (0.66-1.25) mg/dL Glucose (74-99) mg/dL POC Glucose (mg/dL) 256 H (75-99) mg/dL Troponin I 0.047 H* (0.000-0.034) ng/mL Crossmatch See Detail Assessment and Plan Assessment: Symptomatic anemia with pancytopenia and positive FOBT Troponin elevation likely due to demand ischemia with history of CAD Acute kidney injury Hyperkalemia Metabolic acidosis Diabetes mellitus with hyperglycemia Glaucoma Hypertension Hypothyroidism Hemoglobin 6.8 with microcytosis. Leukopenic to 3.0. Platelet count 15. FOBT positive. Pancytopenia possibly related to blood malignancy. Plans: Transfuse 1 unit PRBC. Start Protonix IV daily. Follow ESR and CRP. Follow iron studies, B12 and folic acid. Follow LDL and haptoglobin. Follow SPEP. Follow reticulocyte count. Follow hematology consultation. Follow GI consultation. Troponin 0.047, EKG showing T-wave inversion. Given aspirin in ED. Likely demand ischemia from symptomatic anemia. History of CABG and stent placement. Plans: Trend troponin/EKG to rule out ACS. Follow echocardiogram. Telemetry monitoring. Follow lipid panel. BUN 36, creatinine 1.59. Unknown baseline. Possibly related to dehydration. Plans: Avoid nephrotoxins. Discontinue JIMI inhibitor. Repeat BMP tomorrow morning. Consider urine electrolytes if worsening. Potassium 5.3. Unknown significance. EKG shows no peaked T waves. Plans: Repeat BMP tomorrow morning. Bicarbonate of 18. Unknown significance. Plans: Repeat BMP tomorrow morning. Pqaaz-tl-nenv glucose 256. Plans: Levemir 50 units in the morning. Insulin sliding-scale. Regular Accu-Cheks. Hypoglycemic precautions. Plans: Continue home eyedrops. BP marginally low. Plans: Continue to hold antihypertensive medication. Introduce in stepwise fashion. Plans: Continue Synthroid. DVT prophylaxis: [SCD] Discussed with: [Patient and sister] Anticipated discharge: [2-3 days] Anticipated discharge place: [Assisted-living] A total of [45] minutes was spent on the care of this complex patient more than 50% of the time was spent in counseling and care coordination. Patient names his 's son Arcadio decision-maker if he can't make decisions. Patient would like to be no code.
[2019-07-31] MEDS ORDERED: FUROSEMIDE 10 MG/ML 4 ML VIAL IV STA (16:01)
[2019-07-31] MEDS: INSULIN ASPART (NovoLOG) 100 UNIT/ML VIAL SQ SCH ×2 (18:21→20:31)
[2019-07-31 18:32] LABS: Glucose,Whole Blood 93 mg/dL (75-99)
[2019-07-31] MEDS: [UNRECOGNIZED DRUG - OTHER] BOTH EYES SCH (19:52)
[2019-07-31] MEDS: NETARSUDIL MESYLAT BOTH EYES SCH (19:52)
[2019-07-31] MEDS: SODIUM CHLORIDE 0.9% 1,000 ML IV SCH (19:52)
[2019-07-31] MEDS: LATANOPROST BOTH EYES SCH (19:52)
[2019-07-31] MEDS: BRIMONIDINE TARTRATE 0.2% DROPS 5 ML BTL BOTH EYES SCH (19:52)
[2019-07-31] MEDS: TIMOLOL 0.5% OPHTH DROPS 5 ML BTL BOTH EYES SCH (19:52)
[2019-07-31 20:17] LABS: Glucose,Whole Blood 83 mg/dL (75-99)
[2019-08-01 00:07] LABS: C Reactive Protein 18.4 mg/L (<10.0)
[2019-08-01 01:57] LABS: Glucose,Whole Blood 71 mg/dL (75-99)
[2019-08-01] MEDS: SODIUM CHLORIDE 0.9% 1,000 ML IV SCH ×2 (05:56→20:48)
[2019-08-01] MEDS: LEVOTHYROXINE 25 MCG TAB PO SCH (06:21)
[2019-08-01 06:27] LABS: Glucose,Whole Blood 56 mg/dL (75-99)
[2019-08-01] MEDS: INSULIN ASPART (NovoLOG) 100 UNIT/ML VIAL SQ SCH ×4 (06:48→20:45)
[2019-08-01 07:08] LABS: Glucose,Whole Blood 63 mg/dL (75-99)
[2019-08-01 07:35] LABS: Glucose,Whole Blood 80 mg/dL (75-99)
[2019-08-01 07:38] LABS: Albumin 3.4 g/dL (3.5-5.0); Calcium 9.2 mg/dL (8.4-10.2); Total Bilirubin 1.2 mg/dL (0.2-1.3); Total Protein 6.3 g/dL (6.3-8.2)
[2019-08-01 07:43] LABS: Anisocytosis Slight; MCH 37.4 pg (25.0-35.0); MCHC 35.4 g/dL (31.0-37.0); Macrocytosis Moderate; Mean Platelet Volume 10.1; Poikilocytosis Slight; RBC 1.79 m/uL (4.30-5.90); WBC 1.6 k/uL (3.8-10.6)
[2019-08-01 07:50] LABS: HCT 18.9 % (39.0-53.0); HGB 6.7 gm/dL (13.0-17.5)
[2019-08-01 07:51] LABS: MCV 105.8 fL (80.0-100.0)
[2019-08-01 07:52] LABS: Platelet Count 27 k/uL (150-450)
[2019-08-01] MEDS: PRAVASTATIN SODIUM 20 MG TAB PO SCH (08:23)
[2019-08-01] MEDS: LORATADINE 10 MG TAB PO SCH (08:23)
[2019-08-01] MEDS: BRIMONIDINE TARTRATE 0.2% DROPS 5 ML BTL BOTH EYES SCH ×2 (08:24→20:46)
[2019-08-01] MEDS: TIMOLOL 0.5% OPHTH DROPS 5 ML BTL BOTH EYES SCH ×2 (08:24→20:45)
[2019-08-01] MEDS: [UNRECOGNIZED DRUG - OTHER] BOTH EYES SCH ×2 (08:25→20:46)
[2019-08-01] MEDS: NETARSUDIL MESYLAT BOTH EYES SCH ×2 (08:25→20:46)
[2019-08-01] MEDS: LATANOPROST BOTH EYES SCH ×2 (08:25→20:46)
[2019-08-01] MEDS ORDERED: INSULIN GLARGINE HUM REC ANLOG 50 UNIT SQ SCH (09:00)
[2019-08-01 09:45] LABS: Eosinophils # (M) 0.05 k/uL (0-0.7); Lymphocytes # (M) 0.56 k/uL (1.0-4.8); Monocytes # (M) 0.05 k/uL (0-1.0); Neutrophils # (M) 0.94 k/uL (1.3-7.7); Neutrophils % (M) 59 %; Nucleated Red Blood Cells 0 /100 WBC (0-0); Total Cells Counted 100
[2019-08-01 09:49] LABS: Tear Drop Cells Present
--- NOTE | 2019-08-01 10:34 | ECHOF ---
Referral Reason: MEASUREMENTS -------- HEIGHT: 172.7 cm WEIGHT: 72.6 kg BP: RVIDd: 2.7 cm (< 3.3) IVSd: 0.9 cm (0.6 - 1.1) LVIDd: 5.1 cm (3.9 - 5.3) LVPWd: 1.0 cm (0.6 - 1.1) IVSs: 1.3 cm LVIDs: 4.1 cm LVPWs: 1.3 cm LAESV Index (A-L): 48.25 ml/m Ao Diam: 3.0 cm (2.0 - 3.7) AV Cusp: 1.9 cm (1.5 - 2.6) LA Diam: 5.1 cm (2.7 - 3.8) MV EXCURSION: 13.838 mm (> 18.000) MV EF SLOPE: 133 mm/s (70 - 150) EPSS: 1.3 cm MV E Emanuel: 1.27 m/s MV DecT: 253 ms MV A Emanuel: 0.24 m/s MV E/A Ratio: 5.20 RAP: 5.00 mmHg RVSP: 49.44 mmHg FINDINGS -------- Sinus rhythm. This was a technically adequate study. The left ventricular size is normal. Left ventricular wall thickness is normal. Overall left vent ricular systolic function is mildly impaired with, an EF between 45 - 50 %. The right ventricle is normal in size. LA is severely dilated >40 ml/m2 The right atrial size is normal. The aortic valve is trileaflet, and appears structurally normal. No aortic stenosis or regurgitation. The mitral valve leaflets are mildly thickened. [id number] mitral regurgitation is present. The tricuspid valve appears structurally normal. Mild tricuspid regurgitation present. There is m oderate pulmonary hypertension. The right ventricular systolic pressure, as measured by Doppler, is 49.44mmHg. Trace/mild (physiologic) pulmonic regurgitation. The aortic root size is normal. IVC Not well visulized. There is no pericardial effusion. CONCLUSIONS -------- 1. Sinus rhythm. 2. The left ventricular size is normal. 3. Left ventricular wall thickness is normal. 4. Overall left ventricular systolic function is mildly impaired with, an EF between 45 - 50 %. 5. LA is severely dilated >40 ml/m2 6. The aortic valve is trileaflet, and appears structurally normal. No aortic stenosis or regurgitati on. 7. The mitral valve leaflets are mildly thickened. 8. Ykdizhzr-js-zdchiz mitral regurgitation is present. 9. The tricuspid valve appears structurally normal. 10. Mild tricuspid regurgitation present. 11. There is moderate pulmonary hypertension. 12. Trace/mild (physiologic) pulmonic regurgitation. 13. There is no pericardial effusion. PAINTER ASSISTANT: Viv Irwin RDCS
[2019-08-01 11:04] LABS: Reticulocyte % 0.9 % (0.5-2.0)
[2019-08-01 11:07] LABS: % Iron Saturation 89.5 (15.00-50.00)
--- NOTE | 2019-08-01 11:23 | P.CRDCN ---
History of Present Illness Consult date: 08/01/19 Requesting physician: Anatoliy Claudio Consult reason: shortness of breath Chief complaint: Shortness of breath History of present illness: This is a pleasant 84-year-old gentleman who follows regularly with Dr. Hernadez in the office. He resides at [facility]. He has a history of diabetes, hypertension, hyperlipidemia, nicotine dependence, he has a known history of coronary artery disease with prior bypass surgery, three-vessel in 1993 at which time patient underwent BOONE to the LAD, saphenous vein graft to the diagonal and saphenous vein graft to the PDA. patient underwent stenting of the OM and 2002, mid LAD in 2007, ischemic cardiomyopathy with documented ejection fraction greater than 35%. He presents to the hospital on this occasion with symptoms of progressively worsening shortness of breath with associated weakness and tiredness. His sister stated that she went over to the place where he resides and noted him to be extremely pale and curtis in color. Patient had been having frequent diarrhea stools at home, he had not noticed if any of his stools were dark in color or red in color. His chest x-ray on presentation here showed tiny bilateral pleural effusions, mild central interstitial prominence could be on the basis of bronchitis or interstitial lung disease. EKG shows normal sinus rhythm with ST-T wave changes noted in the lateral leads. An echocardiogram with Doppler study was performed which revealed an ejection fraction of 45-50%, LA is severely dilated, moderate to severe mitral regurgitation. Blood pressure 114/50 with a heart rate in the 70s to 80s, 98% on room air. White blood cell count count was 3.0 on admission, 1.6 this morning, hemoglobin on admission 6.8, 6.7 this morning, platelet count on admission 15, 27 this morning. On admission the sodium was 137, potassium 5.3, BUN 36, creatinine 1.5, iron 196, TIBC 219, iron saturation 89.5, C-reactive protein 18.4, BNP 5050, total protein 6.0 and stool for occult blood positive. Sodium this morning 140, potassium 4.0, BUN 34, creatinine 1.4. Patient did receive 2 units of packed red blood cells yesterday as well as platelets, he is receiving a third unit of blood today. There has been a GI consultation as well as hematology consultation requested. Patient denies having any chest discomfort of any sort, and does state that his breathing this morning is improv ing. Past Medical History Past Medical History: Diabetes Mellitus, Hypertension, Myocardial Infarction (HI) Last Myocardial Infarction Date:: History of Any Multi-Drug Resistant Organisms: None Reported Past Surgical History: Adenoidectomy, Heart Catheterization With Stent, Ton sillectomy Additional Past Surgical History / Comment(s): open heart Past Anesthesia/Blood Transfusion Reactions: No Reported Reaction Date of Last Stent Placement:: unknown Past Psychological History: No Psychological Hx Reported Smoking Status: Former smoker Past Alcohol Use History: None Reported Past Drug Use History: None Reported - Past Family History Mother Family Medical History: CVA/TIA, Dementia Father Family Medical History: Coronary Artery Disease (CAD), Hypertension Additional Family Medical History / Comment(s): sibliings have passed from [place] Medications and Allergies Home Medications Medication Instructions Recorded Confirmed Type Clopidogrel Bisulfate [Plavix] 75 mg PO DAILY 12/12/14 07/31/19 History Irbesartan [Avapro] 300 mg PO DAILY 12/12/14 07/31/19 History Metoprolol Succinate [Toprol XL] 50 mg PO DAILY 12/12/14 07/31/19 History Niacin [Niaspan] 1,000 mg PO HS 12/12/14 07/31/19 History Pravastatin Sodium [Pravachol] 20 mg PO DAILY 12/12/14 07/31/19 History amLODIPine [Norvasc] 5 mg PO DAILY 12/12/14 07/31/19 History Aspirin EC [Ecotrin Low Dose] 81 mg PO DAILY 01/26/19 07/31/19 History Desloratadine 5 mg PO DAILY 01/26/19 07/31/19 History Glimepiride [Amaryl] 4 mg PO BID 01/26/19 07/31/19 History Levothyroxine Sodium [Synthroid] 25 mcg PO DAILY 01/26/19 07/31/19 History Spironolactone-Hctz 25-25Mg 0.5 tab PO DAILY 01/26/19 07/31/19 History [Aldactazide 25-25Mg] Brimonidine Tartrate/Timolol 1 drop BOTH EYES BID 07/31/19 07/31/19 History [Combigan 0.2%-0.5% Eye Drops] Insulin Glargine,Hum.rec.anlog 50 unit SQ QAM 07/31/19 07/31/19 History [Nata Garsiaostar] Netarsudil Mesylat/Latanoprost 1 drop BOTH EYES BID 07/31/19 07/31/19 History [Rocklatan 0.02%-0.005% Eye Drp] Allergies Allergy/AdvReac Type Severity Reaction Status Date / Time insulin degludec Allergy Rash/Hives Verified 07/31/19 11:53 [From Tresiba FlexTouch U-100] Physical Exam Vitals: Vital Signs Temp Pulse Pulse Resp BP BP Pulse Ox 08/01/19 08:00 97.8 F 87 18 113/53 98 08/01/19 04:00 97.5 F L 72 18 132/62 95 07/31/19 23:21 71 18 138/67 98 07/31/19 20:00 97.7 F 68 18 142/65 100 07/31/19 18:10 57 L 16 117/61 100 07/31/19 17:48 98.3 F 79 18 130/66 100 07/31/19 17:40 97.9 F 75 16 90/49 98 07/31/19 17:00 98.3 F 59 L 135/60 74 L 07/31/19 16:23 75 18 120/59 100 07/31/19 16:05 98.3 F 70 18 124/59 100 07/31/19 16:00 67 7 L 112/72 95 07/31/19 15:55 97.6 F 66 18 126/79 100 07/31/19 15:54 97.6 F 64 18 112/72 100 07/31/19 15:11 97.9 F 68 18 122/60 99 07/31/19 15:01 97.8 F 64 18 112/56 100 07/31/19 15:00 98.2 F 65 112/56 86 L 07/31/19 14:05 97.6 F 64 22 96/62 100 07/31/19 13:00 18 106/79 94 L 07/31/19 12:00 76 109/51 Intake and Output 07/31/19 08/01/19 08/01/19 22:59 06:59 14:59 Intake Total 511 320 Output Total 1000 Balance 511 -1000 320 Intake: Oral 320 Blood Product 511 0 Platelet Pheresis Acda3 201 Unit [id number] Rc As-1 Unit 0 [id number] Rc Pheresis 2 As3 Unit 310 [id number] Output: Urine 1000 Other: # Voids 2 Weight 72.575 kg 87 kg PHYSICAL EXAMINATION: GENERAL: 84-year-old gentleman in no acute distress at the time of my examination HEENT: Head is atraumatic, normocephalic. Pupils equal, round. Sclera anicteric. Conjunctiva are clear. Skin is pale in color. Mucous membranes of the mouth are moist. Neck is supple. There is no elevated jugular venous pressure. No carotid bruit is heard. HEART EXAMINATION: Heart S1, S2 systolic ejection murmur heard . No murmur or gallop heard. CHEST EXAMINATION: Lungs are clear with fine crackles to the bases . No chest wall tenderness is noted on palpation or with deep breathing. ABDOMEN: Soft, nontender. Bowel sounds are heard. No organomegaly noted. EXTREMITIES: 2+ peripheral pulses with no evidence of peripheral edema and no calf tenderness noted. NEUROLOGIC patient is awake, alert and oriented 3 . . Results 08/01/19 06:35 08/01/19 06:35 Cardiac Enzymes 07/31/19 07/31/19 07/31/19 Range/Units 10:56 10:56 17:04 AST 27 (17-59) U/L Lactate Dehydrogenase (313-618) U/L Troponin I 0.047 H* 0.036 H* (0.000-0.034) ng/mL 07/31/19 07/31/19 08/01/19 Range/Units 23:15 23:15 06:35 AST 21 (17-59) U/L Lactate Dehydrogenase 718 H (313-618) U/L Troponin I 0.049 H* (0.000-0.034) ng/mL Coagulation 07/31/19 Range/Units 10:56 PT 12.4 H (9.0-12.0) sec APTT 23.5 (22.0-30.0) sec Lipids 08/01/19 Range/Units 06:35 Triglycerides 126 (<150) mg/dL Cholesterol 91 (<200) mg/dL HDL Cholesterol 21 L (40-60) mg/dL CBC 07/31/19 08/01/19 Range/Units 10:56 06:35 WBC 3.0 L 1.6 L (3.8-10.6) k/uL RBC 1.72 L 1.79 L (4.30-5.90) m/uL Hgb 6.8 L* 6.7 L* (13.0-17.5) gm/dL Hct 19.1 L* 18.9 L* (39.0-53.0) % Plt Count 15 L* 27 L D (150-450) k/uL Comprehensive Metabolic Panel 07/31/19 08/01/19 Range/Units 10:56 06:35 Sodium 137 140 (137-145) mmol/L Potassium 5.3 H 4.0 (3.5-5.1) mmol/L Chloride 107 107 (98-107) mmol/L Carbon Dioxide 18 L 25 (22-30) mmol/L BUN 36 H 34 H (9-20) mg/dL Creatinine 1.59 H 1.45 H (0.66-1.25) mg/dL Glucose 259 H 52 L (74-99) mg/dL Calcium 9.3 9.2 (8.4-10.2) mg/dL AST 27 21 (17-59) U/L ALT 13 11 (4-49) U/L Alkaline Phosphatase 84 74 (38-126) U/L Total Protein 6.6 6.3 (6.3-8.2) g/dL Albumin 3.9 3.4 L (3.5-5.0) g/dL Current Medications Generic Name Dose Route Start Last Admin Trade Name Bertoq PRN Reason Stop Dose Admin Acetaminophen 650 mg 07/31/19 15:58 Tylenol Tab PO Q6HR PRN Mild Pain or Fever > 100.5 Brimonidine Tartrate 1 drops 07/31/19 21:00 08/01/19 08:24 Alphagan P 0.2% Ophth Soln BOTH EYES 1 drops BID [facility] Administration Sodium Chloride 1,000 mls @ 75 mls/hr 07/31/19 18:15 08/01/19 05:56 Saline 0.9% IV Not Given .[id number] [facility] Insulin Aspart 0 unit 07/31/19 17:30 08/01/19 06:48 Novolog SQ Not Given ACHS [facility] Protocol Levothyroxine Sodium 25 mcg 08/01/19 06:30 08/01/19 06:21 Synthroid PO 25 mcg DAILY@0630 [facility] Administration Loratadine 10 mg 08/01/19 09:00 08/01/19 08:23 Claritin PO 10 mg DAILY [facility] Administration Naloxone HCl 0.2 mg 07/31/19 15:58 Narcan IV Q2M PRN Opioid Reversal Nitroglycerin 0.4 mg 07/31/19 15:10 Nitrostat SUBLINGUAL Q5M PRN Chest Pain Non-Formulary Medication 1 drop 07/31/19 21:00 08/01/19 08:25 Netarsudil Mesylat/Latanoprost [Rocklatan 0.02%-0.005% Eye Drp] BOTH EYES Not Given BID [facility] Pravastatin Sodium 20 mg 08/01/19 09:00 08/01/19 08:23 Pravachol PO 20 mg DAILY [facility] Administration Timolol Maleate 1 drops 07/31/19 21:00 08/01/19 08:24 Timoptic BOTH EYES 1 drops BID [facility] Administration Intake and Output 07/31/19 08/01/19 08/01/19 22:59 06:59 14:59 Intake Total 511 320 Output Total 1000 Balance 511 -1000 320 Intake: Oral 320 Blood Product 511 0 Platelet Pheresis Acda3 201 Unit [id number] Rc As-1 Unit 0 [id number] Rc Pheresis 2 As3 Unit 310 [id number] Output: Urine 1000 Other: # Voids 2 Weight 72.575 kg 87 kg 08/01/19 06:35 08/01/19 06:35 EKG Interpretations (text) EKG shows a normal sinus rhythm with lateral ST-T wave changes Assessment and Plan Plan: Assessment and plan #1 symptomatic anemia with evidence of pancytopenia #2 known history of coronary artery disease with prior bypass surgery in 1993, subsequent to that patient did undergo stenting of the OM and 2002 and mid LAD #3 hypertension #4 diabetes #5 hyperlipidemia #6 nicotine dependence #7 ischemic cardiomyopathy documented ejection fraction greater than 35% #8 abnormality in troponin, not suggestive of acute coronary syndrome, likely secondary to anemia DNP note has been reviewed, I agree with a documented findings and plan of care. Patient was seen and examined.
[2019-08-01 11:39] LABS: Folate, Serum 18.7 ng/mL
--- NOTE | 2019-08-01 12:02 | P.PN ---
Subjective Progress Note Date: 08/01/19 Principal diagnosis: Anemia Patient was seen and examined. No acute events overnight. Patient reports slight improvement in his breathing since admission. He denies any chest pain or palpitations. No nausea or vomiting. No fever or chills. Objective - Vital Signs Vital signs: Vital Signs Temp 98.1 F 08/01/19 11:02 Pulse 73 08/01/19 11:02 Resp 16 08/01/19 11:02 BP 103/54 08/01/19 11:02 Pulse Ox 96 08/01/19 11:02 Intake & Output 07/31/19 08/01/19 08/01/19 18:59 06:59 18:59 Intake Total 511 320 Output Total 1000 Balance 511 -1000 320 Weight 72.575 kg 87 kg Intake: Oral 320 Blood Product 511 0 Platelet Pheresis Acda3 201 Unit [id number] Rc As-1 Unit 0 [id number] Rc Pheresis 2 As3 Unit 310 [id number] Output: Urine 1000 Other: # Voids 2 - Exam General: [non toxic], [no distress], [appears at stated age] Derm: [warm], [dry] Head: [atraumatic], [normocephalic], [symmetric] Eyes: [EOMI], [no lid lag], [pale sclera] Mouth: [no lip lesion], [mucus membranes moist] Cardiovascular: [S1S2 reg], [no murmur], [positive DP pulse bilateral], Lungs: [CTA bilateral], [no rhonchi, no rales] , [no accessory muscle use] Abdominal: [soft], [ nontender to palpation], [no guarding], [no appreciable organomegaly] Ext: [no gross muscle atrophy], [no edema], [no contractures] Neuro: [ CN II-XI grossly intact], [no focal neuro deficits] Psych: [Alert], [oriented], [appropriate affect] - Labs CBC & Chem 7: 08/01/19 06:35 08/01/19 06:35 Labs: Abnormal Lab Results - Last 24 Hours (Table) 07/31/19 07/31/19 07/31/19 Range/Units 10:56 10:56 10:56 WBC 3.0 L (3.8-10.6) k/uL RBC 1.72 L (4.30-5.90) m/uL Hgb 6.8 L* (13.0-17.5) gm/dL Hct 19.1 L* (39.0-53.0) % MCV 111.4 H (80.0-100.0) fL MCH 39.4 H (25.0-35.0) pg RDW (11.5-15.5) % Plt Count 15 L* (150-450) k/uL Neutrophils # (Manual) 1.26 L (1.3-7.7) k/uL Lymphocytes # (Manual) (1.0-4.8) k/uL Myelocytes # (Manual) 0.06 H (0) k/uL Nucleated RBCs 2 H (0-0) /100 WBC Macrocytosis Marked A ESR (0-15) mm/hr PT 12.4 H (9.0-12.0) sec INR 1.2 H (<1.2) BUN (9-20) mg/dL Creatinine (0.66-1.25) mg/dL Glucose (74-99) mg/dL POC Glucose (mg/dL) (75-99) mg/dL Iron (65-175) ug/dL TIBC (228-460) ug/dL % Saturation (15.00-50.00) Lactate Dehydrogenase (313-618) U/L Troponin I 0.047 H* (0.000-0.034) ng/mL C-Reactive Protein (<10.0) mg/L Total Protein (PEP) (6.2-8.2) g/dL Albumin (3.5-5.0) g/dL HDL Cholesterol (40-60) mg/dL Crossmatch 07/31/19 07/31/19 07/31/19 Range/Units 13:05 17:04 23:15 WBC (3.8-10.6) k/uL RBC (4.30-5.90) m/uL Hgb (13.0-17.5) gm/dL Hct (39.0-53.0) % MCV (80.0-100.0) fL MCH (25.0-35.0) pg RDW (11.5-15.5) % Plt Count (150-450) k/uL Neutrophils # (Manual) (1.3-7.7) k/uL Lymphocytes # (Manual) (1.0-4.8) k/uL Myelocytes # (Manual) (0) k/uL Nucleated RBCs (0-0) /100 WBC Macrocytosis ESR (0-15) mm/hr PT (9.0-12.0) sec INR (<1.2) BUN (9-20) mg/dL Creatinine (0.66-1.25) mg/dL Glucose (74-99) mg/dL POC Glucose (mg/dL) (75-99) mg/dL Iron (65-175) ug/dL TIBC (228-460) ug/dL % Saturation (15.00-50.00) Lactate Dehydrogenase (313-618) U/L Troponin I 0.036 H* 0.049 H* (0.000-0.034) ng/mL C-Reactive Protein (<10.0) mg/L Total Protein (PEP) (6.2-8.2) g/dL Albumin (3.5-5.0) g/dL HDL Cholesterol (40-60) mg/dL Crossmatch See Detail 07/31/19 07/31/19 07/31/19 Range/Units 23:15 23:15 23:15 WBC (3.8-10.6) k/uL RBC (4.30-5.90) m/uL Hgb (13.0-17.5) gm/dL Hct (39.0-53.0) % MCV (80.0-100.0) fL MCH (25.0-35.0) pg RDW (11.5-15.5) % Plt Count (150-450) k/uL Neutrophils # (Manual) (1.3-7.7) k/uL Lymphocytes # (Manual) (1.0-4.8) k/uL Myelocytes # (Manual) (0) k/uL Nucleated RBCs (0-0) /100 WBC Macrocytosis ESR 111 H (0-15) mm/hr PT (9.0-12.0) sec INR (<1.2) BUN (9-20) mg/dL Creatinine (0.66-1.25) mg/dL Glucose (74-99) mg/dL POC Glucose (mg/dL) (75-99) mg/dL Iron 196 H (65-175) ug/dL TIBC 219 L (228-460) ug/dL % Saturation 89.50 H (15.00-50.00) Lactate Dehydrogenase 718 H (313-618) U/L Troponin I (0.000-0.034) ng/mL C-Reactive Protein 18.4 H (<10.0) mg/L Total Protein (PEP) 6.0 L (6.2-8.2) g/dL Albumin (3.5-5.0) g/dL HDL Cholesterol (40-60) mg/dL Crossmatch 08/01/19 08/01/19 08/01/19 Range/Units 01:56 06:25 06:35 WBC (3.8-10.6) k/uL RBC (4.30-5.90) m/uL Hgb (13.0-17.5) gm/dL Hct (39.0-53.0) % MCV (80.0-100.0) fL MCH (25.0-35.0) pg RDW (11.5-15.5) % Plt Count (150-450) k/uL Neutrophils # (Manual) (1.3-7.7) k/uL Lymphocytes # (Manual) (1.0-4.8) k/uL Myelocytes # (Manual) (0) k/uL Nucleated RBCs (0-0) /100 WBC Macrocytosis ESR (0-15) mm/hr PT (9.0-12.0) sec INR (<1.2) BUN 34 H (9-20) mg/dL Creatinine 1.45 H (0.66-1.25) mg/dL Glucose 52 L (74-99) mg/dL POC Glucose (mg/dL) 71 L 56 L (75-99) mg/dL Iron (65-175) ug/dL TIBC (228-460) ug/dL % Saturation (15.00-50.00) Lactate Dehydrogenase (313-618) U/L Troponin I (0.000-0.034) ng/mL C-Reactive Protein (<10.0) mg/L Total Protein (PEP) (6.2-8.2) g/dL Albumin 3.4 L (3.5-5.0) g/dL HDL Cholesterol 21 L (40-60) mg/dL Crossmatch 08/01/19 08/01/19 Range/Units 06:35 07:07 WBC 1.6 L (3.8-10.6) k/uL RBC 1.79 L (4.30-5.90) m/uL Hgb 6.7 L* (13.0-17.5) gm/dL Hct 18.9 L* (39.0-53.0) % MCV 105.8 H D (80.0-100.0) fL MCH 37.4 H (25.0-35.0) pg RDW 16.0 H (11.5-15.5) % Plt Count 27 L D (150-450) k/uL Neutrophils # (Manual) 0.94 L (1.3-7.7) k/uL Lymphocytes # (Manual) 0.56 L (1.0-4.8) k/uL Myelocytes # (Manual) (0) k/uL Nucleated RBCs (0-0) /100 WBC Macrocytosis ESR (0-15) mm/hr PT (9.0-12.0) sec INR (<1.2) BUN (9-20) mg/dL Creatinine (0.66-1.25) mg/dL Glucose (74-99) mg/dL POC Glucose (mg/dL) 63 L (75-99) mg/dL Iron (65-175) ug/dL TIBC (228-460) ug/dL % Saturation (15.00-50.00) Lactate Dehydrogenase (313-618) U/L Troponin I (0.000-0.034) ng/mL C-Reactive Protein (<10.0) mg/L Total Protein (PEP) (6.2-8.2) g/dL Albumin (3.5-5.0) g/dL HDL Cholesterol (40-60) mg/dL Crossmatch Assessment and Plan Assessment: Symptomatic anemia with pancytopenia and positive FOBT Troponin elevation likely due to demand ischemia with history of CAD Acute kidney injury Diabetes mellitus with hyperglycemia Glaucoma Hypertension Hypothyroidism Hemoglobin 6.8-6.7 with microcytosis post 1 PRBC. Leukopenic to 3.0-1.6. Platelet count 15-27 post 1 unit platelets. FOBT positive. Pancytopenia possibly related to blood malignancy. CRP elevated. B12 within normal limits. Plans: Transfuse 1 unit PRBC. Start Protonix IV daily. Follow ESR. Follow iron studies and folic acid. Follow LDL and haptoglobin. Follow SPEP. Follow reticulocyte count. Follow hematology consultation. Follow GI consultation. Troponin 0.047, 0.036, 0.049 EKG showing T-wave inversion. Given aspirin in ED. Likely demand ischemia from symptomatic anemia. History of CABG and stent placement. Echocardiogram shows EF 50-55% with mitral regurgitation and no diastolic dysfunction. Lipid panel within normal limits. Plans: ACS ruled out. Telemetry monitoring. Follow cardiology consultation. BUN 36-34, creatinine 1.59-1.45. Unknown baseline. Possibly related to dehydration. Plans: Avoid nephrotoxins. Discontinue JIMI inhibitor. Repeat BMP tomorrow morning. Consider urine electrolytes if worsening. [id number] glucose 52. Plans: Insulin sliding-scale. Regular Accu-Cheks. Hypoglycemic precautions. Plans: Continue home eyedrops. BP marginally low. Plans: Continue to hold antihypertensive medication. Introduce in stepwise fashion. Plans: Continue Synthroid. [Patient admitted for anemia symptomatic. 1 PRBC today. Hematology and GI on board. Cardiology consulted for elevated troponins. He is pending clinical improvement. Likely DC in 2-3 days.]
[2019-08-01 12:15] LABS: Haptoglobin 58.4 mg/dL (31.2-198.0)
[2019-08-01 12:46] LABS: Glucose,Whole Blood 148 mg/dL (75-99)
--- NOTE | 2019-08-01 16:24 | P.CONS ---
History of Present Illness - Reason for Consult Consult date: 08/01/19 New onset pancytopenia. Weakness - History of Present Illness The patient is an 84-year-old white male, with wonderful medical problems. He had presented to the hospital with about a 2 month history of increasing weakne ss and shortness of breath on exertion. At the time of presentation he also reported some loose bowel movements off and on. On presentation hemoglobin was 6.7, WBC 3 and platelets 15. The patient had 1 unit of blood with no change in hemoglobin leading to another unit being transfused. On initial presentation there was some concern about GI bleeding due to which she received a unit of platelets also. WBC subsequently dropped to 1.6. Consult was therefore placed a further evaluation and recommendations. The patient denied any prior history of blood related problems. CBC in 01/15 was within normal limits. During this admission differential showed a decrease in numbers without evidence of immature forms. The patient denied any obvious bleeding, or black stools. There is no prior history of malignancy. I did have elevated troponins on admission, with echocardiogram showing mild i mpairment of LV function and severely dilated left atrium. Chest x-ray this admission, as well as computed tomography scan of the brain in 01/15 had not shown any major findings Review of Systems Constitutional: Reports fatigue, Reports weakness Eyes: denies blurred vision, denies pain Ears: bilateral: decreased hearing Ears, nose, mouth and throat: Denies headache, Denies sore throat Cardiovascular: Reports shortness of breath Respiratory: Reports dyspnea Gastrointestinal: Reports diarrhea Genitourinary: Reports urinary frequency, Reports urinary hesitancy Musculoskeletal: Reports muscle weakness Integumentary: Denies pruritus, Denies rash Neurological: Reports as per HPI (History of dizziness previously. CT brain in 01/15 revealed minor chronic ischemic changes), Reports weakness Psychiatric: Denies anxiety, Denies depression Endocrine: Reports fatigue Hematologic/Lymphatic: Reports as per HPI Past Medical History Past Medical History: Diabetes Mellitus, Hypertension, Myocardial Infarction ([place]) Last Myocardial Infarction Date:: uknown History of Any Multi-Drug Resistant Organisms: None Reported Past Surgical History: Adenoidectomy, Heart Catheterization With Stent, Tonsillectomy Additional Past Surgical History / Comment(s): open heart Past Anesthesia/Blood Transfusion Reactions: No Reported Reaction Date of Last Stent Placement:: unknown Past Psychological History: No Psychological Hx Reported Smoking Status: Former smoker Past Alcohol Use History: None Reported Past Drug Use History: None Reported - Past Family History Mother Family Medical History: CVA/TIA, Dementia Father Family Medical History: Coronary Artery Disease (CAD), Hypertension Additional Family Medical History / Comment(s): sibliings have passed from [place] Medications and Allergies Home Medications Medication Instructions Recorded Confirmed Type Clopidogrel Bisulfate [Plavix] 75 mg PO DAILY 12/12/14 07/31/19 History Irbesartan [Avapro] 300 mg PO DAILY 12/12/14 07/31/19 History Metoprolol Succinate [Toprol XL] 50 mg PO DAILY 12/12/14 07/31/19 History Niacin [Niaspan] 1,000 mg PO HS 12/12/14 07/31/19 History Pravastatin Sodium [Pravachol] 20 mg PO DAILY 12/12/14 07/31/19 History amLODIPine [Norvasc] 5 mg PO DAILY 12/12/14 07/31/19 History Aspirin EC [Ecotrin Low Dose] 81 mg PO DAILY 01/26/19 07/31/19 History Desloratadine 5 mg PO DAILY 01/26/19 07/31/19 History Glimepiride [Amaryl] 4 mg PO BID 01/26/19 07/31/19 History Levothyroxine Sodium [Synthroid] 25 mcg PO DAILY 01/26/19 07/31/19 History Spironolactone-Hctz 25-25Mg 0.5 tab PO DAILY 01/26/19 07/31/19 History [Aldactazide 25-25Mg] Brimonidine Tartrate/Timolol 1 drop BOTH EYES BID 07/31/19 07/31/19 History [Combigan 0.2%-0.5% Eye Drops] Insulin Glargine,Hum.rec.anlog 50 unit SQ QAM 07/31/19 07/31/19 History [Touperry Sandoval Solostar] Netarsudil Mesylat/Latanoprost 1 drop BOTH EYES BID 07/31/19 07/31/19 History [Rocklatan 0.02%-0.005% Eye Drp] Allergies Allergy/AdvReac Type Severity Reaction Status Date / Time insulin degludec Allergy Rash/Hives Verified 07/31/19 11:53 [From Tresiba FlexTouch U-100] Physical Exam Vitals: Vital Signs Temp Pulse Pulse Resp BP BP Pulse Ox 08/01/19 14:30 98.4 F 75 16 104/56 98 08/01/19 11:22 97.9 F 75 18 115/57 98 08/01/19 11:02 98.1 F 73 16 103/54 96 08/01/19 11:00 97.9 F 75 18 90/49 98 08/01/19 10:52 97.9 F 75 16 90/49 98 08/01/19 08:00 97.8 F 87 18 113/53 98 08/01/19 04:00 97.5 F L 72 18 132/62 95 07/31/19 23:21 71 18 138/67 98 07/31/19 20:00 97.7 F 68 18 142/65 100 07/31/19 18:10 57 L 16 117/61 100 07/31/19 17:48 98.3 F 79 18 130/66 100 07/31/19 17:00 98.3 F 59 L 135/60 74 L 07/31/19 16:23 75 18 120/59 100 Intake and Output 08/01/19 08/01/19 08/01/19 06:59 14:59 22:59 Intake Total 630 Output Total 1000 Balance -1000 630 Intake: Oral 320 Blood Product 310 Rc As-1 Unit 310 [id number] Output: Urine 1000 Other: # Voids 2 Weight 87 kg - Constitutional General appearance: no acute distress - EENT Eyes: EOMI, PERRLA ENT: hard of hearing, normal oropharynx - Neck Neck: no lymphadenopathy - Respiratory Respiratory: bilateral: diminished (Throughout lung almodovar, suggestive of COPD) - Cardiovascular Rhythm: regular Heart sounds: normal: S1, S2 - Gastrointestinal General gastrointestinal: normal bowel sounds, soft - Integumentary Integumentary: normal - Neurologic Neurologic: CNII-XII intact - Musculoskeletal Musculoskeletal: generalized weakness, strength equal bilaterally - Psychiatric Psychiatric: A&O x's 3, appropriate affect Results CBC & Chem 7: 08/01/19 06:35 08/01/19 06:35 Labs: Abnormal Lab Results - Last 24 Hours (Table) 07/31/19 07/31/19 07/31/19 Range/Units 13:05 17:04 23:15 WBC (3.8-10.6) k/uL RBC (4.30-5.90) m/uL Hgb (13.0-17.5) gm/dL Hct (39.0-53.0) % MCV (80.0-100.0) fL MCH (25.0-35.0) pg RDW (11.5-15.5) % Plt Count (150-450) k/uL Neutrophils # (Manual) (1.3-7.7) k/uL Lymphocytes # (Manual) (1.0-4.8) k/uL ESR (0-15) mm/hr BUN (9-20) mg/dL Creatinine (0.66-1.25) mg/dL Glucose (74-99) mg/dL POC Glucose (mg/dL) (75-99) mg/dL Iron (65-175) ug/dL TIBC (228-460) ug/dL % Saturation (15.00-50.00) Lactate Dehydrogenase (313-618) U/L Troponin I 0.036 H* 0.049 H* (0.000-0.034) ng/mL C-Reactive Protein (<10.0) mg/L Total Protein (PEP) (6.2-8.2) g/dL Albumin (3.5-5.0) g/dL HDL Cholesterol (40-60) mg/dL Crossmatch See Detail 07/31/19 07/31/19 07/31/19 Range/Units 23:15 23:15 23:15 WBC (3.8-10.6) k/uL RBC (4.30-5.90) m/uL Hgb (13.0-17.5) gm/dL Hct (39.0-53.0) % MCV (80.0-100.0) fL MCH (25.0-35.0) pg RDW (11.5-15.5) % Plt Count (150-450) k/uL Neutrophils # (Manual) (1.3-7.7) k/uL Lymphocytes # (Manual) (1.0-4.8) k/uL ESR 111 H (0-15) mm/hr BUN (9-20) mg/dL Creatinine (0.66-1.25) mg/dL Glucose (74-99) mg/dL POC Glucose (mg/dL) (75-99) mg/dL Iron 196 H (65-175) ug/dL TIBC 219 L (228-460) ug/dL % Saturation 89.50 H (15.00-50.00) Lactate Dehydrogenase 718 H (313-618) U/L Troponin I (0.000-0.034) ng/mL C-Reactive Protein 18.4 H (<10.0) mg/L Total Protein (PEP) 6.0 L (6.2-8.2) g/dL Albumin (3.5-5.0) g/dL HDL Cholesterol (40-60) mg/dL Crossmatch 08/01/19 08/01/19 08/01/19 Range/Units 01:56 06:25 06:35 WBC (3.8-10.6) k/uL RBC (4.30-5.90) m/uL Hgb (13.0-17.5) gm/dL Hct (39.0-53.0) % MCV (80.0-100.0) fL MCH (25.0-35.0) pg RDW (11.5-15.5) % Plt Count (150-450) k/uL Neutrophils # (Manual) (1.3-7.7) k/uL Lymphocytes # (Manual) (1.0-4.8) k/uL ESR (0-15) mm/hr BUN 34 H (9-20) mg/dL Creatinine 1.45 H (0.66-1.25) mg/dL Glucose 52 L (74-99) mg/dL POC Glucose (mg/dL) 71 L 56 L (75-99) mg/dL Iron (65-175) ug/dL TIBC (228-460) ug/dL % Saturation (15.00-50.00) Lactate Dehydrogenase (313-618) U/L Troponin I (0.000-0.034) ng/mL C-Reactive Protein (<10.0) mg/L Total Protein (PEP) (6.2-8.2) g/dL Albumin 3.4 L (3.5-5.0) g/dL HDL Cholesterol 21 L (40-60) mg/dL Crossmatch 08/01/19 08/01/19 08/01/19 Range/Units 06:35 07:07 12:44 WBC 1.6 L (3.8-10.6) k/uL RBC 1.79 L (4.30-5.90) m/uL Hgb 6.7 L* (13.0-17.5) gm/dL Hct 18.9 L* (39.0-53.0) % MCV 105.8 H D (80.0-100.0) fL MCH 37.4 H (25.0-35.0) pg RDW 16.0 H (11.5-15.5) % Plt Count 27 L D (150-450) k/uL Neutrophils # (Manual) 0.94 L (1.3-7.7) k/uL Lymphocytes # (Manual) 0.56 L (1.0-4.8) k/uL ESR (0-15) mm/hr BUN (9-20) mg/dL Creatinine (0.66-1.25) mg/dL Glucose (74-99) mg/dL POC Glucose (mg/dL) 63 L 148 H (75-99) mg/dL Iron (65-175) ug/dL TIBC (228-460) ug/dL % Saturation (15.00-50.00) Lactate Dehydrogenase (313-618) U/L Troponin I (0.000-0.034) ng/mL C-Reactive Protein (<10.0) mg/L Total Protein (PEP) (6.2-8.2) g/dL Albumin (3.5-5.0) g/dL HDL Cholesterol (40-60) mg/dL Crossmatch Comments: Echocardiogram report reviewed Chest x-ray: report reviewed CT Scan - head: report reviewed Assessment and Plan (1) Pancytopenia Narrative/Plan: As noted in the HPI this is new, compared to 01/15. At this time etiology is not immediately apparent. There does not appear to have been any recent acute illness, or change in medications. - Possible etiologies were discussed with the patient. Pancytopenia workup will be ordered with testing for deficiency states, paraproteinemia, as well as autoimmune conditions and hemolysis. If this is unrevealing (or indicates a bone marrow etiology), then a bone marrow aspiration biopsy will be planned. This was discussed with the patient. - In the meantime continue to monitor with supportive transfusions to keep hemoglobin greater than 7 and platelet count greater than 10 as long as there is no evidence of any obvious bleeding. Also monitor for any evidence of neutropenic infection, though the incidence of those with ANC of greater than 500 is comparatively low. Current Visit: Yes Status: Acute Code(s): D61.818 - OTHER PANCYTOPENIA SNOMED Code(s): 570236041 (2) GI bleed Narrative/Plan: It appears that there was concern for the same because of the acute drop in hemoglobin as well as lack of response to the first unit of PRBC transfusion. However there appears to be no clinical evidence of the same. Given other cytopenias accompanying the low hemoglobin, at this time a bone marrow hypoproliferative condition appears to be more likely. Current Visit: Yes Status: Acute Code(s): K92.2 - GASTROINTESTINAL HEMORRHAGE, UNSPECIFIED SNOMED Code(s): 77362058 Plan: Defer to the admitting service and other consultants for management of his other medical problems.
[2019-08-01 16:29] VITALS: RESP 18
[2019-08-01 17:09] LABS: Glucose,Whole Blood 85 mg/dL (75-99)
[2019-08-01 17:23] LABS: Ferritin 942.1 ng/mL (22.0-322.0)
[2019-08-01 17:48] LABS: Rheumatoid Factor, Qnt <4 IU/mL (0-13)
[2019-08-01 20:45] LABS: Glucose,Whole Blood 128 mg/dL (75-99)
[2019-08-02 06:06] LABS: Glucose,Whole Blood 103 mg/dL (75-99)
[2019-08-02] MEDS: INSULIN ASPART (NovoLOG) 100 UNIT/ML VIAL SQ SCH ×2 (06:14→12:51)
[2019-08-02] MEDS: LEVOTHYROXINE 25 MCG TAB PO SCH (06:22)
[2019-08-02 07:20] LABS: Anisocytosis Slight; HCT 24.5 % (39.0-53.0); MCH 36.8 pg (25.0-35.0); MCHC 35.2 g/dL (31.0-37.0); MCV 104.6 fL (80.0-100.0); Macrocytosis Moderate; Mean Platelet Volume 9.4; RBC 2.35 m/uL (4.30-5.90); RDW 17.1 % (11.5-15.5); WBC 2.2 k/uL (3.8-10.6)
[2019-08-02 07:22] LABS: Calcium 8.7 mg/dL (8.4-10.2); Potassium 4.3 mmol/L (3.5-5.1)
[2019-08-02 07:33] LABS: HGB 8.6 gm/dL (13.0-17.5); Platelet Count 37 k/uL (150-450)
[2019-08-02] MEDS: TIMOLOL 0.5% OPHTH DROPS 5 ML BTL BOTH EYES SCH (08:37)
[2019-08-02] MEDS: PRAVASTATIN SODIUM 20 MG TAB PO SCH (08:37)
[2019-08-02] MEDS: BRIMONIDINE TARTRATE 0.2% DROPS 5 ML BTL BOTH EYES SCH (08:37)
[2019-08-02] MEDS: LORATADINE 10 MG TAB PO SCH (08:37)
[2019-08-02] MEDS: NETARSUDIL MESYLAT BOTH EYES SCH (08:38)
[2019-08-02] MEDS: SODIUM CHLORIDE 0.9% 1,000 ML IV SCH (08:38)
[2019-08-02] MEDS: LATANOPROST BOTH EYES SCH (08:38)
[2019-08-02] MEDS: [UNRECOGNIZED DRUG - OTHER] BOTH EYES SCH (08:38)
--- NOTE | 2019-08-02 10:28 | P.DS ---
Providers Date of admission: 07/31/19 15:58 Expected date of discharge: 08/02/19 Attending physician: Anatoliy Claudio MD Consults: 07/31/19 15:10 Consult Physician Stat Consulting Provider: Noel Nicholson Consult Reason/Comments: possible blood dyscrasia, pancytopenia Do you want consulting provider notified?: Yes Consult Physician Stat Consulting Provider: Tan Caban Consult Reason/Comments: GI bleed Do you want consulting provider notified?: Yes 07/31/19 15:11 Consult Physician Urgent Consulting Provider: Bharti Butler Consult Reason/Comments: lateral t wave inversions, mildly elevated trop, elevated BNP Do you want consulting provider notified?: Yes Primary care physician: Mayur Song [facility] Course: 84-year-old male with PMH of CAD post CABG and stent placement, glaucoma, diabetes mellitus on insulin, hypertension, hypothyroidism presents to the ED for shortness of breath with exertion. Patient reports 2 months of diarrhea that has been on and off. Patient reports having 5 bowel movements a day described as loose stool, normal color. He denies any melena or blood in his stools. In the ED, vital signs were stable. He did have a marginally low BP of 99/51 with O2 sat of 90% on room air. CBC showed WBC count of 3, hemoglobin 6.8, platelet count 15. INR was 1.2. CMP showed potassium 5.3, bicarbonate 18, BUN 36, creatinine 1.59, glucose 259. Troponin was 0.047. BNP was 5050, chest x- ray showing bilateral pleural effusion tiny, central interstitial prominence. Stool for occult blood was positive. Patient is admitted for symptomatic anemia with GI and hematology on consult. Cardiology is consulted for elevated troponins. Patient is anticipated to stay for greater than 48 hours inpatient. Patient's hemoglobin went from 6.8-6.7 after 1 unit of PRBC. His platelet increase from 15,000-27,000 after 1 unit of platelets. He was transfused another unit of blood and his repeat hemoglobin at the time of discharge was 8.6. His platelet count was 37,000 the time of discharge. FOBT was positive but patient endorsed normal bowel movements. CRP and ESR was elevated. B12 and folate was within normal limits. Reticulocyte count showed inappropriate response from bone marrow. Haptoglobin was normal. LDH was elevated. LASHA was positive. Rheumatoid factor was negative. Hematology was consulted and recommended eventual bone marrow biopsy. Patient was seen and examined. No acute events overnight. Patient reports slight improvement in his fatigue. He denies any chest pain, shortness breath or palpitations. No nausea or vomiting. No fever or chills. General: [non toxic], [no distress], [appears at stated age] Derm: [warm], [dry] Head: [atraumatic], [normocephalic], [symmetric] Eyes: [EOMI], [no lid lag], [pale sclera] Mouth: [no lip lesion], [mucus membranes moist] Cardiovascular: [S1S2 reg], [no murmur], [positive DP pulse bilateral], Lungs: [CTA bilateral], [no rhonchi, no rales] , [no accessory muscle use] Abdominal: [soft], [ nontender to palpation], [no guarding], [no appreciable organomegaly] Ext: [no gross muscle atrophy], [no edema], [no contractures] Neuro: [no focal neuro deficits] Psych: [Alert], [oriented], [appropriate affect] Symptomatic anemia with pancytopenia and positive FOBT Troponin elevation likely due to demand ischemia with history of CAD Acute kidney injury Diabetes mellitus with hyperglycemia Glaucoma Hypertension Hypothyroidism Hemoglobin 6.8-6.7-8.6 with microcytosis post 2 PRBC. Leukopenic to 3.0-1.6-2.2. Platelet count 15-27-37 post 1 unit platelets. FOBT positive. Pancytopenia possibly related to blood malignancy. CRP and ESR elevated. LDL elevated, haptoglobin within normal limits. B12 and folic acid within normal limits. Iron studies show anemia of chronic disease. LASHA positive. Plans: Continue Protonix by mouth. Follow SPEP, free kappa and bladimir chains and rule out. Follow hematology consultation. Follow GI consultation. Troponin 0.047, 0.036, 0.049 EKG showing T-wave inversion. Given aspirin in ED. Likely demand ischemia from symptomatic anemia. History of CABG and stent placement. Echocardiogram shows EF 50-55% with mitral regurgitation and no diastolic dysfunction. Lipid panel within normal limits. Plans: ACS ruled out. Telemetry monitoring. Follow cardiology consultation. BUN 36-34-31, creatinine 1.59-1.45-within normal limits. Unknown baseline. Possibly related to dehydration. Plans: Avoid nephrotoxins. Discontinue JIMI inhibitor. Resolving. [id number] glucose 103. Plans: Insulin sliding-scale. Regular Accu-Cheks. Hypoglycemic precautions. Plans: Continue home eyedrops. BP marginally low. Plans: Discontinue amlodipine. Decrease metoprolol from 50- 25 mg. Continue losartan. Continue spironolactone. Plans: Continue Synthroid. [Patient admitted for anemia symptomatic, resolved with 2 units PRBC. No evidence of GI bleed. Discussed with Dr. Nicholson, patient can follow-up outpatient for bone marrow biopsy. This complex discharge took about 35 minute to complete.] Pertinent Studies: Chest x-ray, echocardiogram Patient Condition at Discharge: Stable Plan - Discharge Summary Discharge Rx Participant: No New Discharge Prescriptions: New Metoprolol Succinate [Toprol XL] 25 mg PO DAILY #30 tab Continue Irbesartan [Avapro] 300 mg PO DAILY amLODIPine [Norvasc] 5 mg PO DAILY Pravastatin Sodium [Pravachol] 20 mg PO DAILY Clopidogrel Bisulfate [Plavix] 75 mg PO DAILY Niacin [Niaspan] 1,000 mg PO HS Glimepiride [Amaryl] 4 mg PO BID Aspirin EC [Ecotrin Low Dose] 81 mg PO DAILY Spironolactone-Hctz 25-25Mg [Aldactazide 25-25 MG] 0.5 tab PO DAILY Levothyroxine Sodium [Synthroid] 25 mcg PO DAILY Desloratadine 5 mg PO DAILY Netarsudil Mesylat/Latanoprost [Rocklatan 0.02%-0.005% Eye Drp] 1 drop BOTH EYES BID Insulin Glargine,Hum.rec.anlog [Toujeo Max Solostar] 50 unit SQ QAM Brimonidine Tartrate/Timolol [Combigan 0.2%-0.5% Eye Drops] 1 drop BOTH EYES BID Discontinued Metoprolol Succinate [Toprol XL] 50 mg PO DAILY Discharge Medication List Clopidogrel Bisulfate [Plavix] 75 mg PO DAILY 12/12/14 [History] Irbesartan [Avapro] 300 mg PO DAILY 12/12/14 [History] Niacin [Niaspan] 1,000 mg PO HS 12/12/14 [History] Pravastatin Sodium [Pravachol] 20 mg PO DAILY 12/12/14 [History] amLODIPine [Norvasc] 5 mg PO DAILY 12/12/14 [History] Aspirin EC [Ecotrin Low Dose] 81 mg PO DAILY 01/26/19 [History] Desloratadine 5 mg PO DAILY 01/26/19 [History] Glimepiride [Amaryl] 4 mg PO BID 01/26/19 [History] Levothyroxine Sodium [Synthroid] 25 mcg PO DAILY 01/26/19 [History] Spironolactone-Hctz 25-25Mg [Aldactazide 25-25 MG] 0.5 tab PO DAILY 01/26/19 [History] Brimonidine Tartrate/Timolol [Combigan 0.2%-0.5% Eye Drops] 1 drop BOTH EYES BID 07/31/19 [History] Insulin Glargine,Hum.rec.anlog [Toujeo Max Solostar] 50 unit SQ QAM 07/31/19 [History] Netarsudil Mesylat/Latanoprost [Rocklatan 0.02%-0.005% Eye Drp] 1 drop BOTH EYES BID 07/31/19 [History] Metoprolol Succinate [Toprol XL] 25 mg PO DAILY #30 tab 08/02/19 [Rx] Follow up Appointment(s)/Referral(s): Mayur Song MD [Primary Care Provider] - 1-2 days Levy Hernadez MD [STAFF PHYSICIAN] - 1 Week Noel Nicholson MD [STAFF PHYSICIAN] - 1 Week Ambulatory/Diagnostic Orders: Complete Blood Count w/diff [LAB.AMB] Time Frame: 3 Days, Location: None Selected Patient Instructions/Handouts: Pancytopenia (DC) Activity/Diet/Wound Care/Special Instructions: [place] Diet: Heart healthy Follow-up PCP within 3 days of discharge. Follow-up with hematology within 1 week of discharge. Repeat CBC in 3 days. Follow-up CBC results with PCP. Take all medications as advised. Patient will need adequate follow-up with hematology to rule out malignancy as a cause of his anemia. He would also benefit from colonoscopy.
[2019-08-02 10:54] VITALS: BP 116/58; PULSE 74; TEMP 97.6
[2019-08-02 12:10] LABS: Glucose,Whole Blood 168 mg/dL (75-99)
--- NOTE | 2019-08-02 12:41 | P.CONS ---
History of Present Illness - Reason for Consult Consult date: 08/01/19 Anemia Requesting physician: Matheus Frazier - Chief Complaint Shortness of breath - History of Present Illness Patient 4-year-old male with multiple medical comorbidities including coronary artery disease status post CABG, glaucoma, diabetes mellitus, hypertension and hypothyroidism who presented to the hospital with complaints of shortness of breath. Patient had reported increasing shortness of breath over the past 2 months. Worse with exertion making it difficult for the patient to ambulate. The patient denied any signs or symptoms of GI bleeding with no hematochezia, hematemesis or melena. He did feel that he had been having increased bowel movements over the past 2 months as well. He denied any abdominal pain. She does have a history of coronary stent placement and is on Plavix therapy. The patient's previous hemoglobin in 12/2018 was found to be 13 but on current admission patient was found to be pancytopenic with WBC 1.6, hemoglobin 6.8, and platelet count 27,000 with an INR of 1.2, total bilirubin 1.0, alkaline phosphatase 84, AST 27 and ALT 13. Review of Systems REVIEW OF SYSTEMS: CONSTITUTIONAL: Denies any fevers, chills, weight change but does report fatigue. CARDIOVASCULAR: Denies any chest pain, palpitations high or low blood pressures RESPIRATORY: Denies any hemoptysis or cough or shortness of breath worsened with exertion. GENITOURINARY: No dysuria or hematuria. MUSCULOSKELETAL: No weakness reported. SKIN: Denies any new rashes or lesions, jaundice or pallor. PSYCHIATRIC: Denies any depression or anxiety. NEUROLOGY: Denies headache, denies any new focal deficits. EARS/NOSE/THROAT: No recent hearing change, congestion, nasal discharge or sore throat. EYES: No pain in eyes, discharge or change in vision. GASTROINTESTINAL: As per HPI. Past Medical History Past Medical History: Diabetes Mellitus, Hypertension, Myocardial Infarction ([place]) Last Myocardial Infarction Date:: uknown History of Any Multi-Drug Resistant Organisms: None Reported Past Surgical History: Adenoidectomy, Heart Catheterization With Stent, Tonsillectomy Additional Past Surgical History / Comment(s): open heart Past Anesthesia/Blood Transfusion Reactions: No Reported Reaction Date of Last Stent Placement:: unknown Past Psychological History: No Psychological Hx Reported Smoking Status: Former smoker Past Alcohol Use History: None Reported Past Drug Use History: None Reported - Past Family History Mother Family Medical History: CVA/TIA, Dementia Father Family Medical History: Coronary Artery Disease (CAD), Hypertension Additional Family Medical History / Comment(s): sibliings have passed from [place] Medications and Allergies Home Medications Medication Instructions Recorded Confirmed Type Clopidogrel Bisulfate [Plavix] 75 mg PO DAILY 12/12/14 07/31/19 History Irbesartan [Avapro] 300 mg PO DAILY 12/12/14 07/31/19 History Niacin [Niaspan] 1,000 mg PO HS 12/12/14 07/31/19 History Pravastatin Sodium [Pravachol] 20 mg PO DAILY 12/12/14 07/31/19 History amLODIPine [Norvasc] 5 mg PO DAILY 12/12/14 07/31/19 History Aspirin EC [Ecotrin Low Dose] 81 mg PO DAILY 01/26/19 07/31/19 History Desloratadine 5 mg PO DAILY 01/26/19 07/31/19 History Glimepiride [Amaryl] 4 mg PO BID 01/26/19 07/31/19 History Levothyroxine Sodium [Synthroid] 25 mcg PO DAILY 01/26/19 07/31/19 History Spironolactone-Hctz 25-25Mg 0.5 tab PO DAILY 01/26/19 07/31/19 History [Aldactazide 25-25 MG] Brimonidine Tartrate/Timolol 1 drop BOTH EYES BID 07/31/19 07/31/19 History [Combigan 0.2%-0.5% Eye Drops] Insulin Glargine,Hum.rec.anlog 50 unit SQ QAM 07/31/19 07/31/19 History [Toujeo Max Solostar] Netarsudil Mesylat/Latanoprost 1 drop BOTH EYES BID 07/31/19 07/31/19 History [Rocklatan 0.02%-0.005% Eye Drp] Metoprolol Succinate [Toprol XL] 25 mg PO DAILY #30 tab 08/02/19 Rx Allergies Allergy/AdvReac Type Severity Reaction Status Date / Time insulin degludec Allergy Rash/Hives Verified 07/31/19 11:53 [From Tresiba FlexTouch U-100] Physical Exam Vitals: Vital Signs Temp Pulse Pulse Resp BP BP Pulse Ox 08/01/19 11:02 98.1 F 73 16 103/54 96 08/01/19 10:52 97.9 F 75 16 90/49 98 08/01/19 08:00 97.8 F 87 18 113/53 98 08/01/19 04:00 97.5 F L 72 18 132/62 95 07/31/19 23:21 71 18 138/67 98 07/31/19 20:00 97.7 F 68 18 142/65 100 07/31/19 18:10 57 L 16 117/61 100 07/31/19 17:48 98.3 F 79 18 130/66 100 07/31/19 17:00 98.3 F 59 L 135/60 74 L 07/31/19 16:23 75 18 120/59 100 07/31/19 16:05 98.3 F 70 18 124/59 100 07/31/19 16:00 67 7 L 112/72 95 07/31/19 15:55 97.6 F 66 18 126/79 100 07/31/19 15:54 97.6 F 64 18 112/72 100 07/31/19 15:11 97.9 F 68 18 122/60 99 07/31/19 15:01 97.8 F 64 18 112/56 100 07/31/19 15:00 98.2 F 65 112/56 86 L 07/31/19 14:05 97.6 F 64 22 96/62 100 07/31/19 13:00 18 106/79 94 L Intake and Output 07/31/19 08/01/19 08/01/19 22:59 06:59 14:59 Intake Total 511 320 Output Total 1000 Balance 511 -1000 320 Intake: Oral 320 Blood Product 511 0 Platelet Pheresis Acda3 201 Unit [id number] Rc As-1 Unit 0 [id number] Rc Pheresis 2 As3 Unit 310 [id number] Output: Urine 1000 Other: # Voids 2 Weight 72.575 kg 87 kg On physical examination, patient appears comfortable in no apparent distress. HEAD: Normocephalic, atraumatic. EYES: No scleral icterus. No conjunctival injection. MOUTH: No lesions, tongue midline. NECK: Trachea midline, no gross abnormalities. CHEST: Clear to auscultation with no wheezing or rhonchi appreciated. HEART: Regular rate and rhythm. ABDOMEN: Soft. Bowel sounds are positive. No organomegaly. No guarding or rigid ity. EXTREMITIES: No pedal edema. SKIN: No rashes, no jaundice. NEUROLOGIC: Alert and oriented. Results CBC & Chem 7: 08/02/19 06:51 08/02/19 06:51 Labs: Abnormal Lab Results - Last 24 Hours (Table) 07/31/19 07/31/19 07/31/19 Range/Units 10:56 10:56 10:56 WBC 3.0 L (3.8-10.6) k/uL RBC (4.30-5.90) m/uL Hgb (13.0-17.5) gm/dL Hct (39.0-53.0) % MCV (80.0-100.0) fL MCH (25.0-35.0) pg RDW (11.5-15.5) % Plt Count (150-450) k/uL Neutrophils # (Manual) 1.26 L (1.3-7.7) k/uL Lymphocytes # (Manual) (1.0-4.8) k/uL Myelocytes # (Manual) 0.06 H (0) k/uL Nucleated RBCs 2 H (0-0) /100 WBC ESR (0-15) mm/hr PT 12.4 H (9.0-12.0) sec INR 1.2 H (<1.2) BUN (9-20) mg/dL Creatinine (0.66-1.25) mg/dL Glucose (74-99) mg/dL POC Glucose (mg/dL) (75-99) mg/dL Iron (65-175) ug/dL TIBC (228-460) ug/dL % Saturation (15.00-50.00) Lactate Dehydrogenase (313-618) U/L Troponin I 0.047 H* (0.000-0.034) ng/mL C-Reactive Protein (<10.0) mg/L Total Protein (PEP) (6.2-8.2) g/dL Albumin (3.5-5.0) g/dL HDL Cholesterol (40-60) mg/dL Crossmatch 07/31/19 07/31/19 07/31/19 Range/Units 13:05 17:04 23:15 WBC (3.8-10.6) k/uL RBC (4.30-5.90) m/uL Hgb (13.0-17.5) gm/dL Hct (39.0-53.0) % MCV (80.0-100.0) fL MCH (25.0-35.0) pg RDW (11.5-15.5) % Plt Count (150-450) k/uL Neutrophils # (Manual) (1.3-7.7) k/uL Lymphocytes # (Manual) (1.0-4.8) k/uL Myelocytes # (Manual) (0) k/uL Nucleated RBCs (0-0) /100 WBC ESR (0-15) mm/hr PT (9.0-12.0) sec INR (<1.2) BUN (9-20) mg/dL Creatinine (0.66-1.25) mg/dL Glucose (74-99) mg/dL POC Glucose (mg/dL) (75-99) mg/dL Iron (65-175) ug/dL TIBC (228-460) ug/dL % Saturation (15.00-50.00) Lactate Dehydrogenase (313-618) U/L Troponin I 0.036 H* 0.049 H* (0.000-0.034) ng/mL C-Reactive Protein (<10.0) mg/L Total Protein (PEP) (6.2-8.2) g/dL Albumin (3.5-5.0) g/dL HDL Cholesterol (40-60) mg/dL Crossmatch See Detail 07/31/19 07/31/19 07/31/19 Range/Units 23:15 23:15 23:15 WBC (3.8-10.6) k/uL RBC (4.30-5.90) m/uL Hgb (13.0-17.5) gm/dL Hct (39.0-53.0) % MCV (80.0-100.0) fL MCH (25.0-35.0) pg RDW (11.5-15.5) % Plt Count (150-450) k/uL Neutrophils # (Manual) (1.3-7.7) k/uL Lymphocytes # (Manual) (1.0-4.8) k/uL Myelocytes # (Manual) (0) k/uL Nucleated RBCs (0-0) /100 WBC ESR 111 H (0-15) mm/hr PT (9.0-12.0) sec INR (<1.2) BUN (9-20) mg/dL Creatinine (0.66-1.25) mg/dL Glucose (74-99) mg/dL POC Glucose (mg/dL) (75-99) mg/dL Iron 196 H (65-175) ug/dL TIBC 219 L (228-460) ug/dL % Saturation 89.50 H (15.00-50.00) Lactate Dehydrogenase 718 H (313-618) U/L Troponin I (0.000-0.034) ng/mL C-Reactive Protein 18.4 H (<10.0) mg/L Total Protein (PEP) 6.0 L (6.2-8.2) g/dL Albumin (3.5-5.0) g/dL HDL Cholesterol (40-60) mg/dL Crossmatch 08/01/19 08/01/19 08/01/19 Range/Units 01:56 06:25 06:35 WBC (3.8-10.6) k/uL RBC (4.30-5.90) m/uL Hgb (13.0-17.5) gm/dL Hct (39.0-53.0) % MCV (80.0-100.0) fL MCH (25.0-35.0) pg RDW (11.5-15.5) % Plt Count (150-450) k/uL Neutrophils # (Manual) (1.3-7.7) k/uL Lymphocytes # (Manual) (1.0-4.8) k/uL Myelocytes # (Manual) (0) k/uL Nucleated RBCs (0-0) /100 WBC ESR (0-15) mm/hr PT (9.0-12.0) sec INR (<1.2) BUN 34 H (9-20) mg/dL Creatinine 1.45 H (0.66-1.25) mg/dL Glucose 52 L (74-99) mg/dL POC Glucose (mg/dL) 71 L 56 L (75-99) mg/dL Iron (65-175) ug/dL TIBC (228-460) ug/dL % Saturation (15.00-50.00) Lactate Dehydrogenase (313-618) U/L Troponin I (0.000-0.034) ng/mL C-Reactive Protein (<10.0) mg/L Total Protein (PEP) (6.2-8.2) g/dL Albumin 3.4 L (3.5-5.0) g/dL HDL Cholesterol 21 L (40-60) mg/dL Crossmatch 08/01/19 08/01/19 Range/Units 06:35 07:07 WBC 1.6 L (3.8-10.6) k/uL RBC 1.79 L (4.30-5.90) m/uL Hgb 6.7 L* (13.0-17.5) gm/dL Hct 18.9 L* (39.0-53.0) % MCV 105.8 H D (80.0-100.0) fL MCH 37.4 H (25.0-35.0) pg RDW 16.0 H (11.5-15.5) % Plt Count 27 L D (150-450) k/uL Neutrophils # (Manual) 0.94 L (1.3-7.7) k/uL Lymphocytes # (Manual) 0.56 L (1.0-4.8) k/uL Myelocytes # (Manual) (0) k/uL Nucleated RBCs (0-0) /100 WBC ESR (0-15) mm/hr PT (9.0-12.0) sec INR (<1.2) BUN (9-20) mg/dL Creatinine (0.66-1.25) mg/dL Glucose (74-99) mg/dL POC Glucose (mg/dL) 63 L (75-99) mg/dL Iron (65-175) ug/dL TIBC (228-460) ug/dL % Saturation (15.00-50.00) Lactate Dehydrogenase (313-618) U/L Troponin I (0.000-0.034) ng/mL C-Reactive Protein (<10.0) mg/L Total Protein (PEP) (6.2-8.2) g/dL Albumin (3.5-5.0) g/dL HDL Cholesterol (40-60) mg/dL Crossmatch Chest x-ray: report reviewed Assessment and Plan (1) Pancytopenia Narrative/Plan: 84-year-old male presenting with shortness of breath, the patient has multiple medical. Stool testing was positive for blood on presentation, however patient severely pancytopenic and concern is for hematocrit abnormality. Currently be ing evaluated by the hematology service. Patient denies any signs or symptoms of GI bleeding. Current Visit: Yes Status: Acute Code(s): D61.818 - OTHER PANCYTOPENIA SNOMED Code(s): 263903641 (2) GI bleed Current Visit: Yes Status: Acute Code(s): K92.2 - GASTROINTESTINAL HEMORRHAGE, UNSPECIFIED SNOMED Code(s): 02468781 Plan: Supportive care Continue monitor CBC, CMP Okay for diet as tolerated No plans for endoscopic evaluation at this time Further workup per hematology service Thank you for allowing us to participate in the care of the patient
--- NOTE | 2019-08-02 13:44 | P.PN ---
Subjective Progress Note Date: 08/02/19 This is a pleasant 84-year-old gentleman who follows regularly with Dr. Hernadez in the office. He resides at [facility]. He has a history of diabetes, hypertension, hyperlipidemia, nicotine dependence, he has a known history of coronary artery disease with prior bypass surgery, three-vessel in 1993 at which time patient underwent BOONE to the LAD, saphenous vein graft to the diagonal and saphenous vein graft to the PDA. patient underwent stenting of the OM and 2002, mid LAD in 2007, ischemic cardiomyopathy with documented ejection fraction greater than 35%. He presents to the hospital on this occasion with symptoms of progressively worsening shortness of breath with associated weakness and tiredness. His sister stated that she went over to the place where he resides and noted him to be extremely pale and curtis in color. Patient had been having frequent diarrhea stools at home, he had not noticed if any of his stools were dark in color or red in color. His chest x-ray on presentation here showed tiny bilateral pleural effusions, mild central interstitial prominence could be on the basis of bronchitis or interstitial lung disease. EKG shows normal sinus rhythm with ST-T wave changes noted in the lateral leads. An echocardiogram with Doppler study was performed which revealed an ejection fraction of 45-50%, LA is severely dilated, moderate to severe mitral regurgitation. Blood pressure 114/50 with a heart rate in the 70s to 80s, 98% on room air. White blood cell count count was 3.0 on admission, 1.6 this morning, hemoglobin on admission 6.8, 6.7 this morning, platelet count on admission 15, 27 this morning. On admission the sodium was 137, potassium 5.3, BUN 36, creatinine 1.5, iron 196, TIBC 219, iron saturation 89.5, C-reactive protein 18.4, BNP 5050, total protein 6.0 and stool for occult blood positive. Sodium this morning 140, potassium 4.0, BUN 34, creatinine 1.4. Patient did receive 2 units of packed red blood cells yesterday as well as platelets, he is receiving a third unit of blood today. There has been a GI consultation as well as hematology consultation requested. Patient denies having any chest discomfort of any sort, and does state that his breathing this morning is improving. 08/02/2019 Patient seen and examined this morning, sitting up in the chair at bedside, feels well, no complaints. Blood pressure 116/50 with a heart rate in the 70s, 95% on room air. White blood cell count 2.2, hemoglobin 8.6, platelet count 37. Sodium 138, potassium 4.3, BUN 31 and creatinine 1.1. Echo cardiac gram with Doppler study revealed a an ejection fraction of 45-50% with moderate to severe mitral regurgitation noted Objective - Vital Signs Vital signs: Vital Signs Temp 97.6 F 08/02/19 08:30 Pulse 74 08/02/19 08:30 Resp 18 08/02/19 08:30 BP 116/58 08/02/19 08:30 Pulse Ox 95 08/02/19 08:30 Intake & Output 08/01/19 08/02/19 08/02/19 18:59 06:59 18:59 Intake Total 1130 780 Output Total 480 360 Balance 650 -360 780 Weight 80.4 kg Intake: Intake, IV Titration 600 Amount Sodium Chloride 0.9% 1, 600 000 ml @ 75 mls/hr IV . [id number] CALEB Rx#:[id number] Oral 320 180 Blood Product 810 Rc As-1 Unit 310 [id number] Output: Urine 480 360 Other: # Voids 3 2 1 - Exam PHYSICAL EXAMINATION: GENERAL: 84-year-old gentleman in no acute distress at the time of my examination HEENT: Head is atraumatic, normocephalic. Pupils equal, round. Sclera anicteric. Conjunctiva are clear. Skin is pale in color. Mucous membranes of the mouth are moist. Neck is supple. There is no elevated jugular venous pressure. No carotid bruit is heard. HEART EXAMINATION: Heart S1, S2 systolic ejection murmur heard . No murmur or gallop heard. CHEST EXAMINATION: Lungs are clear with fine crackles to the bases . No chest wall tenderness is noted on palpation or with deep breathing. ABDOMEN: Soft, nontender. Bowel sounds are heard. No organomegaly noted. EXTREMITIES: 2+ peripheral pulses with no evidence of peripheral edema and no calf tenderness noted. NEUROLOGIC patient is awake, alert and oriented 3 . - Labs CBC & Chem 7: 08/02/19 06:51 08/02/19 06:51 Labs: Abnormal Lab Results - Last 24 Hours (Table) 07/31/19 08/01/19 08/01/19 Range/Units 13:05 06:35 06:35 WBC (3.8-10.6) k/uL RBC (4.30-5.90) m/uL Hgb (13.0-17.5) gm/dL Hct (39.0-53.0) % MCV (80.0-100.0) fL MCH (25.0-35.0) pg RDW (11.5-15.5) % Plt Count (150-450) k/uL BUN (9-20) mg/dL Glucose (74-99) mg/dL POC Glucose (mg/dL) (75-99) mg/dL Ferritin 942.1 H (22.0-322.0) ng/mL LASHA Screen POSITIVE H (NEGATIVE) Crossmatch See Detail 08/01/19 08/02/19 08/02/19 Range/Units 20:44 06:05 06:51 WBC 2.2 L (3.8-10.6) k/uL RBC 2.35 L (4.30-5.90) m/uL Hgb 8.6 L D (13.0-17.5) gm/dL Hct 24.5 L (39.0-53.0) % MCV 104.6 H (80.0-100.0) fL MCH 36.8 H (25.0-35.0) pg RDW 17.1 H (11.5-15.5) % Plt Count 37 L (150-450) k/uL BUN (9-20) mg/dL Glucose (74-99) mg/dL POC Glucose (mg/dL) 128 H 103 H (75-99) mg/dL Ferritin (22.0-322.0) ng/mL LASHA Screen (NEGATIVE) Crossmatch 08/02/19 08/02/19 Range/Units 06:51 12:08 WBC (3.8-10.6) k/uL RBC (4.30-5.90) m/uL Hgb (13.0-17.5) gm/dL Hct (39.0-53.0) % MCV (80.0-100.0) fL MCH (25.0-35.0) pg RDW (11.5-15.5) % Plt Count (150-450) k/uL BUN 31 H (9-20) mg/dL Glucose 112 H (74-99) mg/dL POC Glucose (mg/dL) 168 H (75-99) mg/dL Ferritin (22.0-322.0) ng/mL LASHA Screen (NEGATIVE) Crossmatch Assessment and Plan Plan: Assessment and plan #1 symptomatic anemia with evidence of pancytopenia #2 known history of coronary artery disease with prior bypass surgery in 1993, subsequent to that patient did undergo stenting of the OM and 2002 and mid LAD #3 hypertension #4 diabetes #5 hyperlipidemia #6 nicotine dependence #7 ischemic cardiomyopathy documented ejection fraction greater than 35% #8 abnormality in troponin, not suggestive of acute coronary syndrome, likely secondary to anemia Echocardiogram with Doppler study revealed a normal left ventricular systolic function. We will follow this patient along with you now on an as-needed basis only, please don't hesitate to call with any questions. DNP note has been reviewed, I agree with a documented findings and plan of care. Patient was seen and examined.
[2019-08-02 15:19] LABS: Free Kappa Lt Chain Qnt, Serum 5.62 mg/dL (0.33-1.94)
[2019-08-04 12:29] LABS: ANA Pattern Speckled
[2019-08-04 12:32] LABS: Albumin 3.46 g/dL (3.80-4.90); Gamma Globulin 0.91 g/dL (0.70-1.50)
== END 2019-08-02 15:20 | disposition home or self-care (01) | DRG 809 ==
LOC: EC 10:33 → 3SCARD 15:58
PROVIDERS: ADMIT Hospitalist; ATTEND Hospitalist
DX: D61.818 Other pancytopenia (principal); E87.2 Acidosis; I13.0 Hypertensive heart and chronic kidney disease with heart failure and stage 1 through stage 4 chronic kidney disease, or unspecified chronic kidney disease; I24.8 Other forms of acute ischemic heart disease; E03.9 Hypothyroidism, unspecified; E11.22 Type 2 diabetes mellitus with diabetic chronic kidney disease; E11.65 Type 2 diabetes mellitus with hyperglycemia; E78.5 Hyperlipidemia, unspecified; E87.5 Hyperkalemia; F17.200 Nicotine dependence, unspecified, uncomplicated; H40.9 Unspecified glaucoma; I25.10 Atherosclerotic heart disease of native coronary artery without angina pectoris; I25.2 Old myocardial infarction; I25.5 Ischemic cardiomyopathy; I34.0 Nonrheumatic mitral (valve) insufficiency; I50.9 Heart failure, unspecified; N18.9 Chronic kidney disease, unspecified; Z79.02 Long term (current) use of antithrombotics/antiplatelets; Z79.4 Long term (current) use of insulin; Z79.82 Long term (current) use of aspirin; Z79.890 Hormone replacement therapy; Z79.899 Other long term (current) drug therapy; Z82.49 Family history of ischemic heart disease and other diseases of the circulatory system; Z95.1 Presence of aortocoronary bypass graft; Z95.5 Presence of coronary angioplasty implant and graft; Z88.8 Allergy status to other drugs, medicaments and biological substances
CPT/HCPCS: 36415; 36430; 71046; 80048; 80053; 80061; 82272; 82607; 82728; 82746; 82747; 83010; 83540; 83550; 83615; 83735; 83880; 83883; 84165; 84484; 85025; 85027; 85045; 85610; 85652; 85730; 86038; 86039; 86140; 86334; 86431; 86850; 86900; 86901; 86920; 93005; 93306; 96374; 96375; 99285

== ENCOUNTER 2019-08-08 11:58 | Inpatient (IN) | payer MEDICARE ==
[2019-08-07 14:25] VITALS: BMI 26.9
[~2019-08-08 11:58] MED LIST: Pre Op ABX Message 1 EACH MISC MISCELLANE ONE
[2019-08-08] MEDS ORDERED: LIDOCAINE 1% 20 ML VIAL (10MG/ML) FOR IV START INTRADERMA ONE (13:03)
[2019-08-08] MEDS: LACTATED RINGERS 1,000 ML IV SCH (13:03)
[2019-08-08 13:18] LABS: MCH 36.3 pg (25.0-35.0); MCHC 35.1 g/dL (31.0-37.0); MCV 103.2 fL (80.0-100.0); Macrocytosis Moderate; Mean Platelet Volume 10.7; RBC 1.84 m/uL (4.30-5.90); WBC 1.7 k/uL (3.8-10.6)
[2019-08-08 13:26] LABS: Glucose,Whole Blood 362 mg/dL (75-99)
[2019-08-08 13:26] LABS: Glucose,Whole Blood 366 mg/dL (75-99)
--- NOTE | 2019-08-08 13:40 | P.PCN ---
Date of Procedure: 08/08/19 Preoperative Diagnosis: New-onset pancytopenia Postoperative Diagnosis: Same Procedure(s) Performed: Bone marrow aspiration and biopsy Anesthesia: MAC Surgeon: Noel Nicholson Therapy Tech #1: Stated None Estimated Blood Loss (ml): 1 Pathology: other Condition: stable Disposition: same day Indications for Procedure: New onset pancytopenia Operative Findings: Aspirate samples appeared somewhat hemodiluted and were difficult to obtain. Biopsy samples were adequate Description of Procedure: The procedure was explained in detail to the patient's daughter who is his POA. He presented to the outpatient endoscopy suite for IV access and informed consent obtained. The patient appeared to be somewhat drowsy and lethargic at the time of initial evaluation preop. He was seen by anesthesiology and cleared for the procedure. On my evaluation preprocedure while the patient was drowsy, he was arousable and appropriately responsive. He was then placed in the left lateral decubitus position. Area over both posterior iliac crest was cleaned and prepped with chlorhexidine and sterile draping. IV sedation was then initiated. Local anesthesia was administered to the right posterior iliac crest. A Jamshidi needle was then inserted and bone marrow aspirate and biopsy obtained. Aspirate was very slow to come out, and appeared to be hemodiluted. Biopsy specimen appear to be adequate. Due to the nature of the aspirate a second pass was made, with aspirate obtained somewhat more easily still with the hemodiluted appearance. On of the biopsy specimen was also obtained. On withdrawal of the needle hemostasis was easily achieved. Blood loss was minimal and recovery from sedation was satisfactory. He appeared to have tolerated the procedure well without any obvious immediate complications The patient did have blood glucose checked just prior to starting the procedure to rule out hypoglycemia. Blood glucose was actually high in the 300 range. Anesthesiology will initiate protocol for the same in recovery
[2019-08-08 13:47] LABS: HGB 6.7 gm/dL (13.0-17.5)
[2019-08-08] MEDS ORDERED: INSULIN ASPART (NovoLOG) 100 UNIT/ML VIAL SQ ONE (13:54)
[2019-08-08 14:47] LABS: Band Neutrophils % 1 %; Blast Cells # (M) 0.05 k/uL (0); Eosinophils # (M) 0.03 k/uL (0-0.7); Lymphocytes # (M) 0.58 k/uL (1.0-4.8); Metamyelocytes # (M) 0.02 k/uL (0); Metamyelocytes % 1 %; Monocytes # (M) 0.15 k/uL (0-1.0); Myelocytes # (M) 0.05 k/uL (0); Myelocytes % 3 %; Neutrophils % (M) 49 %; Nucleated Red Blood Cells 2 /100 WBC (0-0); Total Cells Counted 200
[2019-08-08 14:48] LABS: Platelet Count 27 k/uL (150-450); Poikilocytosis (M) Present; Rouleaux Present
[2019-08-08 14:49] LABS: Reticulocyte % 0.9 % (0.5-2.0)
[2019-08-08 15:02] LABS: Glucose,Whole Blood 313 mg/dL (75-99)
[2019-08-08 17:02] LABS: Glucose,Whole Blood 273 mg/dL (75-99)
[2019-08-08] MEDS ORDERED: IPRATROPIUM-ALBUTEROL 3 ML NEB INHALATION STA (17:09)
[2019-08-08] MEDS ORDERED: NALOXONE 0.4 MG/ML 1 ML VIAL IV PRN (17:25)
[2019-08-08] MEDS ORDERED: ACETAMINOPHEN TAB 325 MG TAB PO PRN (17:25)
[2019-08-08] MEDS ORDERED: MELATONIN 3 MG TABLET PO PRN (17:25)
[2019-08-08] MEDS ORDERED: ONDANSETRON 4 MG/2 ML VIAL IVP PRN (17:25)
[2019-08-08] MEDS ORDERED: LOPERAMIDE 2 MG CAP PO PRN (18:00)
--- NOTE | 2019-08-08 18:08 | P.HPIM ---
History of Present Illness H&P Date: 08/08/19 Chief Complaint: weakness Patient is an 84-year-old male to past medical history of coronary artery disease status post CABG years ago, glaucoma, diabetes on insulin, HTN, and hypothyroidism who presented initially for elective bone marrow biopsy. Labs were taken at that point in time and showed hemoglobin of 6.7. Dr. Nicholson recommended one unit of blood and observation overnight. Patient seen and examined in the postanesthesia care unit. His stepdaughter is at bedside who states that since he was discharged from the hospital on 08/02 has had increasing weakness (now requiring a wheelchair) and has been sleeping all day. Today they had an outpatient bone marrow biopsy scheduled. He is very tired currently and wakes up intermittently. They deny any recent cough, cold, fever, flu, nausea, vomiting, or diarrhea. He denies any unusual bruising or bleeding symptoms bleeding from his gums, bleeding in school, or bleeding in his urine. He denies any shortness of breath or chest pain. He reports feeling fatigued and tired all day long. Patient noted to have nonpalpable purpura on abdomen and upper thigh, he reports these have been there for years, also has discoloration of the skin over his upper abdomen which he reports has been present for years Review of Systems Pertinent positives and negatives as discussed in HPI, a complete review of systems was performed and all other systems are negative. Past Medical History Past Medical History: Coronary Artery Disease (CAD), Diabetes Mellitus, Hypertension, Myocardial Infarction (MD), Skin Disorder Additional Past Medical History / Comment(s): Pancytopenia currently being worked up, past hx diarrhea for few weeks. Last Myocardial Infarction Date:: History of Any Multi-Drug Resistant Organisms: None Reported Past Surgical History: Adenoidectomy, Heart Catheterization With Stent, Tonsillectomy Additional Past Surgical History / Comment(s): Triple CABG 1992; PTCA w/ stent later. Past Anesthesia/Blood Transfusion Reactions: No Reported Reaction Date of Last Stent Placement:: unknown Smoking Status: Former smoker - Past Family History Mother Family Medical History: CVA/TIA, Dementia Father Family Medical History: Coronary Artery Disease (CAD), Hypertension Additional Family Medical History / Comment(s): sibliings have passed from [place] Brother(s) Family Medical History: Cancer Sister(s) Family Medical History: Cancer Medications and Allergies Home Medications Medication Instructions Recorded Confirmed Type Irbesartan [Avapro] 300 mg PO DAILY 12/12/14 08/07/19 History Niacin [Niaspan] 1,000 mg PO HS 12/12/14 08/07/19 History Pravastatin Sodium [Pravachol] 20 mg PO DAILY 12/12/14 08/07/19 History amLODIPine [Norvasc] 5 mg PO DAILY 12/12/14 08/07/19 History Desloratadine 5 mg PO DAILY 01/26/19 08/07/19 History Glimepiride [Amaryl] 4 mg PO BID 01/26/19 08/07/19 History Levothyroxine Sodium [Synthroid] 25 mcg PO DAILY 01/26/19 08/07/19 History Spironolactone-Hctz 25-25Mg 0.5 tab PO DAILY 01/26/19 08/07/19 History [Aldactazide 25-25 MG] Brimonidine Tartrate/Timolol 1 drop BOTH EYES BID 07/31/19 08/07/19 History [Combigan 0.2%-0.5% Eye Drops] Insulin Glargine,Hum.rec.anlog 90 unit SQ QAM 07/31/19 08/07/19 History [Touperry Sandoval Solostar] Netarsudil Mesylat/Latanoprost 1 drop BOTH EYES BID 07/31/19 08/07/19 History [Rocklatan 0.02%-0.005% Eye Drp] Calcium Carbonate [Tums] 500 mg PO QID PRN 08/07/19 08/07/19 History Loperamide HCl [Imodium A-D] 2 mg PO DIRECTED PRN 08/07/19 08/07/19 History Meclizine HCl 25 mg PO DAILY 08/07/19 08/07/19 History Metoprolol Succinate [Toprol XL] 12.5 mg PO DAILY 08/07/19 08/07/19 History sitaGLIPtin PHOSPHATE [Januvia] 100 mg PO DAILY 08/07/19 08/07/19 History Allergies Allergy/AdvReac Type Severity Reaction Status Date / Time insulin degludec Allergy Rash/Hives Verified 08/07/19 13:51 [From Tresiba FlexTouch U-100] Physical Exam Osteopathic Statement: *. No significant issues noted on an osteopathic structural exam other than those noted in the History and Physical/Consult. Vitals: Vital Signs Temp Pulse Pulse Resp BP BP Pulse Ox 08/08/19 16:59 98.7 F 74 22 108/56 99 08/08/19 16:29 97.9 F 78 16 116/66 08/08/19 16:19 98 F 72 20 110/65 08/08/19 15:46 77 22 113/65 92 L 08/08/19 15:04 76 22 122/68 100 08/08/19 14:35 84 22 124/69 100 08/08/19 13:57 72 16 108/62 100 08/08/19 13:46 72 18 139/83 100 08/08/19 13:15 96.9 F L 80 24 129/69 99 08/08/19 12:31 96.9 F L 80 24 129/69 99 Intake and Output 08/08/19 08/08/19 08/08/19 06:59 14:59 22:59 Intake Total 150 0 Balance 150 0 Intake: IV 150 Blood Product 0 Rc As-3 Unit 0 [id number] Other: Weight 81.1 kg General: Ill appearing, no distress, appears at stated age, normal weight Derm: Nonpalpable purpura chest, abdomen, and bilateral upper thighs, nevi over started on that is approximately 4 cm in length, ovoid and irregular per patient has been there for multiple years. Ecchymoses left forearm, warm, dry Head: atraumatic, normocephalic, symmetric Eyes: EOMI, no lid lag, anicteric sclera, pupils equal round reactive to light ENT: Nose and ears atraumatic, no thrush, no pharyngeal erythema Neck: No thyromegaly, no cervical lymphadenopathy, trachea midline, supple Mouth: no lip lesion, mucus membranes moist Cardiovascular: S1S2 reg, no murmur, positive posterior tibial pulse bilateral, no edema, capillary refill less than 2 seconds Lungs: Decreased breath sounds bilateral, no rhonchi, no rales , no accessory muscle use Abdominal: soft, nontender to palpation, no guarding, no appreciable organomegaly, normal bowel sounds Ext: no gross muscle atrophy, muscle strength 4 out of 5 in all 4 extremities grossly, no contractures, Neuro: CN II-XI grossly intact, light touch intact all 4 extremities, finger to nose within normal limits, Psych: Alert, oriented, lethargic Results CBC & Chem 7: 08/08/19 12:55 Labs: Abnormal Lab Results - Last 24 Hours (Table) 08/08/19 08/08/19 08/08/19 Range/Units 12:55 13:22 13:24 WBC 1.7 L (3.8-10.6) k/uL RBC 1.84 L (4.30-5.90) m/uL Hgb 6.7 L* (13.0-17.5) gm/dL Hct 19.0 L* (39.0-53.0) % MCV 103.2 H (80.0-100.0) fL MCH 36.3 H (25.0-35.0) pg RDW 16.0 H (11.5-15.5) % Plt Count 27 L D (150-450) k/uL Blast Cells % 3 H* % Neutrophils # (Manual) 0.80 L (1.3-7.7) k/uL Lymphocytes # (Manual) 0.58 L (1.0-4.8) k/uL Metamyelocytes # (Man) 0.02 H (0) k/uL Myelocytes # (Manual) 0.05 H (0) k/uL Blast Cells # (Man) 0.05 H (0) k/uL Nucleated RBCs 2 H (0-0) /100 WBC POC Glucose (mg/dL) 366 H 362 H (75-99) mg/dL Crossmatch 08/08/19 08/08/19 08/08/19 Range/Units 14:44 15:00 17:00 WBC (3.8-10.6) k/uL RBC (4.30-5.90) m/uL Hgb (13.0-17.5) gm/dL Hct (39.0-53.0) % MCV (80.0-100.0) fL MCH (25.0-35.0) pg RDW (11.5-15.5) % Plt Count (150-450) k/uL Blast Cells % % Neutrophils # (Manual) (1.3-7.7) k/uL Lymphocytes # (Manual) (1.0-4.8) k/uL Metamyelocytes # (Man) (0) k/uL Myelocytes # (Manual) (0) k/uL Blast Cells # (Man) (0) k/uL Nucleated RBCs (0-0) /100 WBC POC Glucose (mg/dL) 313 H 273 H (75-99) mg/dL Crossmatch See Detail Thrombosis Risk Factor Assmnt - DVT/VTE Prophylaxis DVT/VTE Prophylaxis: Mechanical Prophylaxis ordered Assessment and Plan Assessment: Pancytopenia with worsening anemia -1 unit of packed red blood cells -Had bone marrow biopsy performed today and results are currently pending -Repeat CBC in a.m. -We will need to call Dr. Nicholson's office on Sunday to schedule an appointment for Sunday for repeat CBC in to see Dr. Nicholson. Diabetes mellitus type 2 with hyperglycemia -Last hemoglobin A1c was in March 2019 at 6.7 -Resume long-acting insulin, and sliding scale insulin, resume Januvia -Hold Amaryl -Follow blood sugars Hypertension, controlled -Resume metoprolol and Norvasc -Patient recently had acute kidney injury and will hold spironolactone/hydrochlorothiazide until basic metabolic profile available History of coronary artery disease -Avoid aspirin with low platelet count -Continue with statin therapy The patient is placed in observation with an anticipated less than 2 midnight stay for evaluation of anemia. Surrogate decision-maker: Son CODE STATUS: No code DVT prophylaxis: SCDs Discussed with: Patient, nursing, stepdaughter Anticipated discharge date: In a.m. Anticipated discharge place: home A total of 65 minutes was spent on the care of this complex patient more than 50% of the time was spent in counseling and care coordination.
[2019-08-08] MEDS: SODIUM CHLORIDE 0.9% 1,000 ML IV SCH (19:31)
[2019-08-08 19:59] LABS: Calcium 8.8 mg/dL (8.4-10.2); Potassium 4.5 mmol/L (3.5-5.1)
[2019-08-08 20:48] LABS: Glucose,Whole Blood 245 mg/dL (75-99)
[2019-08-08] MEDS: INSULIN ASPART (NovoLOG) 100 UNIT/ML VIAL SQ SCH (22:11)
[2019-08-08] MEDS: TIMOLOL 0.5% OPHTH DROPS 5 ML BTL BOTH EYES SCH (22:12)
[2019-08-08] MEDS: BRIMONIDINE TARTRATE 0.2% DROPS 5 ML BTL BOTH EYES SCH (22:12)
[2019-08-09 03:58] LABS: Anisocytosis Slight; MCH 35.4 pg (25.0-35.0); MCHC 35.1 g/dL (31.0-37.0); Macrocytosis Slight; Mean Platelet Volume 7.9; RBC 1.96 m/uL (4.30-5.90); RDW 17.2 % (11.5-15.5); WBC 1.9 k/uL (3.8-10.6)
[2019-08-09 04:09] LABS: HCT 19.8 % (39.0-53.0); HGB 6.9 gm/dL (13.0-17.5)
[2019-08-09 04:52] LABS: Platelet Count 5 k/uL (150-450)
[2019-08-09] MEDS: LACTATED RINGERS 1,000 ML IV SCH (05:34)
[2019-08-09] MEDS: LEVOTHYROXINE 25 MCG TAB PO SCH (05:38)
[2019-08-09 07:01] LABS: Glucose,Whole Blood 203 mg/dL (75-99)
[2019-08-09 08:48] LABS: Albumin 2.9 g/dL (3.5-5.0); Calcium 8.6 mg/dL (8.4-10.2); Magnesium 2.1 mg/dL (1.6-2.3); Phosphorus 3.3 mg/dL (2.5-4.5); Potassium 4.5 mmol/L (3.5-5.1); Total Bilirubin 2.7 mg/dL (0.2-1.3); Total Protein 5.6 g/dL (6.3-8.2)
[2019-08-09] MEDS: LORATADINE 10 MG TAB PO SCH (08:52)
[2019-08-09] MEDS: MECLIZINE 25 MG TAB PO SCH (08:53)
[2019-08-09] MEDS: LINAGLIPTIN 5 MG TABLET PO SCH (08:53)
[2019-08-09] MEDS: amLODIPine 5 MG TAB PO SCH (08:53)
[2019-08-09] MEDS: PRAVASTATIN SODIUM 20 MG TAB PO SCH (08:53)
[2019-08-09] MEDS: BRIMONIDINE TARTRATE 0.2% DROPS 5 ML BTL BOTH EYES SCH ×2 (08:54→21:38)
[2019-08-09] MEDS: TIMOLOL 0.5% OPHTH DROPS 5 ML BTL BOTH EYES SCH ×2 (08:55→21:38)
[2019-08-09] MEDS: INSULIN ASPART (NovoLOG) 100 UNIT/ML VIAL SQ SCH ×4 (09:00→20:12)
[2019-08-09] MEDS ORDERED: LOSARTAN 50 MG TAB PO SCH (09:00)
[2019-08-09] MEDS ORDERED: METOPROLOL SUCCINATE (ER) 25 MG TAB.ER.24H PO SCH (09:00)
[2019-08-09] MEDS: INSULIN DETEMIR (LEVEMIR) 100 UNIT/ML SYR SQ SCH (09:01)
[2019-08-09 10:08] LABS: T4, Free (Free Thyroxine) 1.51 ng/dL (0.78-2.19)
[2019-08-09 11:02] LABS: Anisocytosis Slight; HCT 20.4 % (39.0-53.0); MCH 33.7 pg (25.0-35.0); MCHC 33.7 g/dL (31.0-37.0); MCV 99.9 fL (80.0-100.0); Macrocytosis Slight; Mean Platelet Volume 14.6; RBC 2.04 m/uL (4.30-5.90)
[2019-08-09 11:08] LABS: HGB 6.9 gm/dL (13.0-17.5); Platelet Count 6 k/uL (150-450)
[2019-08-09 11:09] LABS: WBC 1.5 k/uL (3.8-10.6)
[2019-08-09 11:26] LABS: Glucose,Whole Blood 285 mg/dL (75-99)
[2019-08-09 12:20] LABS: Band Neutrophils % 2 %; Eosinophils # (M) 0.02 k/uL (0-0.7); Lymphocytes # (M) 0.41 k/uL (1.0-4.8); Metamyelocytes # (M) 0.02 k/uL (0); Metamyelocytes % 1 %; Monocytes # (M) 0.15 k/uL (0-1.0); Myelocytes # (M) 0.02 k/uL (0); Myelocytes % 1 %; Neutrophils % (M) 58 %; Nucleated Red Blood Cells 0 /100 WBC (0-0); Poikilocytosis (M) Present; Polychromasia Present; Total Cells Counted 100
--- NOTE | 2019-08-09 13:36 | XR ---
EXAMINATION TYPE: XR shoulder complete RT , 3 VIEWS DATE OF EXAM ORDERED: 08/09/2019 HISTORY: pain. COMPARISON: None. FINDINGS: The humeral head as well as an unusual shape. There is a bowing deformity of the proximal humerus. No acute fracture or dislocation is seen. There are mild degenerative changes in the right A C joint. IMPRESSION: UNUSUAL APPEARANCE TO THE HUMERUS WITHOUT A DISCRETE FRACTURE IDENTIFIED.
[2019-08-09] MEDS: SODIUM CHLORIDE 0.9% 1,000 ML IV SCH (16:28)
[2019-08-09 17:14] LABS: Glucose,Whole Blood 324 mg/dL (75-99)
--- NOTE | 2019-08-09 17:55 | P.PN ---
Subjective Progress Note Date: 08/09/19 (delayed charting seen at 0930) Principal diagnosis: anemia Patient is an 84-year-old male to past medical history of coronary artery disease status post CABG years ago, glaucoma, diabetes on insulin, HTN, and hypothyroidism who presented initially for elective bone marrow biopsy. Labs were taken at that point in time and showed hemoglobin of 6.7. Dr. Nicholson recommended one unit of blood and observation overnight. He was admitted for monitoring. After blood transfusion was complete nurse found blood in bed soaking sheets but IV was intact. It was difficult to determine if IV had been leaking or if bleeding had occurred. His hemoglobin was recheck and was unchange d an additional unit of blood was ordered. Repeated HgB after one unit was unchanged. Platelets on the morning of 08/09 where 5 and 1 unit of platelets were ordered. Patient seen and examined at bedside. Feeling better than yesterday but still lethargic. No chest pain, shortness of breath or dizziness. No nausea, no presyncope. Objective - Vital Signs Vital signs: Vital Signs Temp 96.1 F L 08/09/19 17:09 Pulse 80 08/09/19 17:09 Resp 16 08/09/19 17:09 BP 117/58 08/09/19 17:09 Pulse Ox 97 08/09/19 17:09 Intake & Output 08/08/19 08/09/19 08/09/19 18:59 06:59 18:59 Intake Total 511 908 6202 Output Total 2 Balance 125 374 9512 Weight 81.1 kg Intake: IV 500 Intake, IV Titration 650 250 Amount Sodium Chloride 0.9% 1, 650 250 000 ml @ 50 mls/hr IV . Q20H CALEB Rx#:[id number] Oral 500 Blood Product 0 310 310 Platelet Pheresis Acda2 0 Unit [id number] Rc As-3 Unit 0 310 [id number] Rc As-3 Unit 310 [id number] Rc Pheresis 2 As3 Unit 0 0 [id number] Output: Urine 2 Other: # Voids 1 1 # Bowel Movements 1 - Exam General: Chronically ill appearing, [no distress], [appears at stated age] Derm: multiple bruises worse on left and right arm, petichae unchanged. 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 Neuro: [ CN II-XI grossly intact], [no focal neuro deficits] Psych: [Alert], [oriented], [appropriate affect] - Labs CBC & Chem 7: 08/09/19 09:43 08/09/19 03:44 Labs: Abnormal Lab Results - Last 24 Hours (Table) 08/08/19 08/08/19 08/08/19 Range/Units 14:44 19:07 20:47 WBC (3.8-10.6) k/uL RBC (4.30-5.90) m/uL Hgb (13.0-17.5) gm/dL Hct (39.0-53.0) % MCV (80.0-100.0) fL MCH (25.0-35.0) pg RDW (11.5-15.5) % Plt Count (150-450) k/uL Neutrophils # (Manual) (1.3-7.7) k/uL Lymphocytes # (Manual) (1.0-4.8) k/uL Metamyelocytes # (Man) (0) k/uL Myelocytes # (Manual) (0) k/uL Sodium 135 L (137-145) mmol/L Carbon Dioxide (22-30) mmol/L BUN 43 H (9-20) mg/dL Creatinine 1.29 H (0.66-1.25) mg/dL Glucose 215 H (74-99) mg/dL POC Glucose (mg/dL) 245 H (75-99) mg/dL Total Bilirubin (0.2-1.3) mg/dL Total Protein (6.3-8.2) g/dL Albumin (3.5-5.0) g/dL TSH (0.465-4.680) mIU/L Crossmatch See Detail 08/09/19 08/09/19 08/09/19 Range/Units 03:44 03:44 06:59 WBC 1.9 L (3.8-10.6) k/uL RBC 1.96 L (4.30-5.90) m/uL Hgb 6.9 L* (13.0-17.5) gm/dL Hct 19.8 L* (39.0-53.0) % MCV 101.0 H (80.0-100.0) fL MCH 35.4 H (25.0-35.0) pg RDW 17.2 H (11.5-15.5) % Plt Count 5 L* D (150-450) k/uL Neutrophils # (Manual) (1.3-7.7) k/uL Lymphocytes # (Manual) (1.0-4.8) k/uL Metamyelocytes # (Man) (0) k/uL Myelocytes # (Manual) (0) k/uL Sodium 136 L (137-145) mmol/L Carbon Dioxide 19 L (22-30) mmol/L BUN 45 H (9-20) mg/dL Creatinine 1.30 H (0.66-1.25) mg/dL Glucose 173 H (74-99) mg/dL POC Glucose (mg/dL) 203 H (75-99) mg/dL Total Bilirubin 2.7 H (0.2-1.3) mg/dL Total Protein 5.6 L (6.3-8.2) g/dL Albumin 2.9 L (3.5-5.0) g/dL TSH 5.160 H (0.465-4.680) mIU/L Crossmatch 08/09/19 08/09/19 08/09/19 Range/Units 09:43 11:23 17:12 WBC 1.5 L (3.8-10.6) k/uL RBC 2.04 L (4.30-5.90) m/uL Hgb 6.9 L* (13.0-17.5) gm/dL Hct 20.4 L (39.0-53.0) % MCV (80.0-100.0) fL MCH (25.0-35.0) pg RDW 17.0 H (11.5-15.5) % Plt Count 6 L* (150-450) k/uL Neutrophils # (Manual) 0.90 L (1.3-7.7) k/uL Lymphocytes # (Manual) 0.41 L (1.0-4.8) k/uL Metamyelocytes # (Man) 0.02 H (0) k/uL Myelocytes # (Manual) 0.02 H (0) k/uL Sodium (137-145) mmol/L Carbon Dioxide (22-30) mmol/L BUN (9-20) mg/dL Creatinine (0.66-1.25) mg/dL Glucose (74-99) mg/dL POC Glucose (mg/dL) 285 H 324 H (75-99) mg/dL Total Bilirubin (0.2-1.3) mg/dL Total Protein (6.3-8.2) g/dL Albumin (3.5-5.0) g/dL TSH (0.465-4.680) mIU/L Crossmatch Assessment and Plan Assessment: Pancytopenia with worsening anemia and thrombocytopenia -1 s/p 2 units of pRBC, HgB still low and a third is ordered, 1 unit of platelets -Had bone marrow biopsy performed 08/08/19 and results are currently pending -Repeat CBC in a.m. - Consult Oncology Diabetes mellitus type 2 with hyperglycemia -Last hemoglobin A1c was in March 2019 at 6.7 - long-acting insulin, sliding scale insulin, resume Januvia -Hold Amaryl -Follow blood sugars Hypertension, controlled -hold metoprolol and losartan, HcTZ and spironolactone, due to low normal blood pressure - Norvasc - follow BP History of coronary artery disease -Avoid aspirin with low platelet count -Continue with statin therapy Anemia worsening and not responding appropriatly to transfusion. Transition to inpatient status DVT prophylaxis: SCDs Discussed with: Patient, nursing Anticipated discharge date: In a.m. Anticipated discharge place: home A total of 35 minutes was spent on the care of this complex patient more than 50% of the time was spent in counseling and care coordination.
[2019-08-09 20:10] LABS: Glucose,Whole Blood 409 mg/dL (75-99)
[2019-08-09 20:13] LABS: Anisocytosis Slight; HGB 7.7 gm/dL (13.0-17.5); MCH 32.6 pg (25.0-35.0); MCHC 33.6 g/dL (31.0-37.0); MCV 97.1 fL (80.0-100.0); Macrocytosis Slight; Mean Platelet Volume 10.8; RBC 2.37 m/uL (4.30-5.90); RDW 17.1 % (11.5-15.5)
[2019-08-09 20:22] LABS: WBC 1.4 k/uL (3.8-10.6)
[2019-08-09 20:23] LABS: Platelet Count 25 k/uL (150-450)
[2019-08-10] MEDS: LACTATED RINGERS 1,000 ML IV SCH (04:49)
[2019-08-10] MEDS: LEVOTHYROXINE 25 MCG TAB PO SCH (05:00)
[2019-08-10 06:54] LABS: Glucose,Whole Blood 217 mg/dL (75-99)
[2019-08-10] MEDS ORDERED: SODIUM CHLORIDE 0.9% 500 ML 500 ML IV ONE (07:14)
[2019-08-10] MEDS ORDERED: METOPROLOL SUCCINATE (ER) 25 MG TAB.ER.24H PO STA (07:16)
--- NOTE | 2019-08-10 07:31 | P.PN ---
Progress Note - Text Progress Note Date: 08/10/19 Hospitalist Interval Note CTSP: High heart rate at 150 Patient seen and examined at bedside. He is just over all not feeling well. He denies any chest pain, SOB, or palpitations. He is feeling slightly better now. Vital signs reviewed General: ill appearing, no distress, appears at stated age Derm: warm, dry Head: atraumatic, normocephalic, symmetric Eyes: EOMI, no lid lag, anicteric sclera Mouth: no lip lesion, mucus membranes moist Cardiovascular: S1S2 tachy, no murmur, positive posterior tibial pulse bilateral, Lungs: Decreased bs bilateral, no rhonchi, no rales , no accessory muscle use Psych: Alert, oriented, appropriate affect Assessment/Plan: Suspect sinus tach vs A fib with 2:1 block: 0.9 NS 1 L bolus, Metoprolol 12.5 mg X 1 now then resume, Transfer to [facility] (formerly [facility]3], not a candidate for anticoagulation - Chest stat CBC, CMP, and INR
[2019-08-10 07:50] LABS: Anisocytosis Slight; HCT 24.1 % (39.0-53.0); HGB 8.2 gm/dL (13.0-17.5); MCH 32.6 pg (25.0-35.0); MCHC 33.9 g/dL (31.0-37.0); MCV 96.1 fL (80.0-100.0); Macrocytosis Slight; Mean Platelet Volume 9.9; RBC 2.51 m/uL (4.30-5.90); RDW 16.8 % (11.5-15.5)
[2019-08-10 08:02] LABS: Albumin 3.1 g/dL (3.5-5.0); Calcium 8.5 mg/dL (8.4-10.2); Potassium 3.9 mmol/L (3.5-5.1); Total Bilirubin 1.8 mg/dL (0.2-1.3); Total Protein 5.8 g/dL (6.3-8.2)
[2019-08-10 08:04] LABS: INR 1.1 (<1.2); Prothrombin Time 11.5 sec (9.0-12.0)
[2019-08-10 08:11] LABS: WBC 1.4 k/uL (3.8-10.6)
[2019-08-10 08:12] LABS: Glucose,Whole Blood 208 mg/dL (75-99)
[2019-08-10 08:12] LABS: Platelet Count 26 k/uL (150-450)
--- NOTE | 2019-08-10 08:27 | XR ---
EXAMINATION TYPE: XR chest 1V portable DATE OF EXAM: 08/10/2019 HISTORY: pneumonia. REFERENCE: Previous study dated 07/31/2019. FINDINGS: There has been a midline sternotomy. The heart is mildly enlarged. Lungs appear clear. Pleural space are clear. IMPRESSION: MILD CARDIOMEGALY.
[2019-08-10] MEDS ORDERED: METOPROLOL TARTRATE 5 MG/5 ML VIAL IVP STA (08:45)
[2019-08-10] MEDS ORDERED: DILTIAZEM DRIP BOLUS FROM BAG 1 MG SOLN IV ONE (09:06)
[2019-08-10] MEDS: INSULIN ASPART (NovoLOG) 100 UNIT/ML VIAL SQ SCH ×4 (09:12→21:41)
[2019-08-10] MEDS: BRIMONIDINE TARTRATE 0.2% DROPS 5 ML BTL BOTH EYES SCH ×2 (09:13→21:39)
[2019-08-10] MEDS: LINAGLIPTIN 5 MG TABLET PO SCH (09:14)
[2019-08-10] MEDS: PRAVASTATIN SODIUM 20 MG TAB PO SCH (09:14)
[2019-08-10] MEDS: MECLIZINE 25 MG TAB PO SCH (09:14)
[2019-08-10] MEDS: TIMOLOL 0.5% OPHTH DROPS 5 ML BTL BOTH EYES SCH ×2 (09:14→21:39)
[2019-08-10] MEDS: INSULIN DETEMIR (LEVEMIR) 100 UNIT/ML SYR SQ SCH (09:15)
[2019-08-10] MEDS: SPIRONOLACTONE-HCTZ 25-25MG 1 EACH TAB PO SCH (09:15)
[2019-08-10] MEDS: LORATADINE 10 MG TAB PO SCH (09:19)
[2019-08-10] MEDS: amLODIPine 5 MG TAB PO SCH (09:19)
[2019-08-10] MEDS ORDERED: DILTIAZEM 125 MG in SODIUM CHLORIDE 0.9% 100 ML IV SCH (09:30)
[2019-08-10 10:00] LABS: Band Neutrophils % 2 %; Basophils # (M) 0.01 k/uL (0-0.2); Eosinophils # (M) 0.03 k/uL (0-0.7); Lymphocytes # (M) 0.36 k/uL (1.0-4.8); Metamyelocytes # (M) 0.01 k/uL (0); Metamyelocytes % 1 %; Monocytes # (M) 0.15 k/uL (0-1.0); Myelocytes # (M) 0.03 k/uL (0); Myelocytes % 2 %; Neutrophils % (M) 58 %; Nucleated Red Blood Cells 0 /100 WBC (0-0); Total Cells Counted 200
[2019-08-10] MEDS: SODIUM CHLORIDE 0.9% 1,000 ML IV SCH (10:06)
--- NOTE | 2019-08-10 11:28 | CONS ---
CONSULTATION Seth Murray is an 84-year-old elderly gentleman, a patient of Dr. Hernadez with history of CAD, prior bypass surgery several years ago. He was admitted to the hospital mainly for elective bone marrow biopsy and aspiration by Dr. Nicholson mainly because of the fact the gentleman was having pancytopenia. Following the procedure, he was kept overnight and had to give some blood transfusion. When the blood transfusion was given, the initial unit well was not administered. It was actually disconnected IV and therefore went on to the bed and he received another additional unit and also received some platelets. However, he developed atrial fibrillation and developed palpitations with a very fast heart rate and felt some uncomfortable feeling in the chest as well. He was therefore transferred from the 5th floor to ICU in this regard. I was asked to see him for atrial fibrillation rapid ventricular rate. At the time of my evaluation, he is resting comfortably. Denies chest pain. He tells me that he can feel his heart is faster, but he has no discomfort. He is hemodynamically stable at the time of my evaluation. His blood counts are quite low. His hemoglobin after a unit of blood is about 8.2. White count is 1.4, and platelets are about 25,000 yesterday after transfusion. His troponin is elevated to 0.13, probably related to atrial fibrillation and rapid rate. PAST MEDICAL HISTORY: 1. CAD with prior bypass surgery, ejection fraction in the 40-45 percent range with moderate mitral regurgitation. 2. Hypertension. 3. History of pancytopenia, workup in progress. 4. History of prior myocardial infarction. 5. Type 2 diabetes mellitus. MEDICATIONS: At home include: Metoprolol succinate a 12.5 mg daily, amlodipine 5 mg a day, Pravastatin 20 mg daily, levothyroxine 25 mcg daily, insulin and also he takes Januvia and Amaryl. Please refer to the chart for other additional information. PHYSICAL EXAMINATION: Blood pressure is 118/70, pulse rate is about 140 per minute irregular. HEENT unremarkable. Fundus was not examined by me. Neck is supple. There is JVD of 1 cm. No carotid bruit. Heart exam reveals S1, S2 heard normally with irregular rhythm. Short systolic murmur. Lungs reveal diminished air entry. ABDOMEN: Soft, lower extremities reveal diminished pulses. Central nervous system grossly no focal deficits but there is generalized weakness. Echo from [facility]nd revealed ejection fraction of 45% with moderate to severe mitral regurgitation and moderate pulmonary hypertension, right-sided pressures in the range of 40 mmHg. IMPRESSION: 1. New onset atrial fib with rapid ventricular rate. 2. Hypertension. 3. Type 2 diabetes mellitus. 4. Coronary artery disease with prior bypass surgery. 5. Pancytopenia workup in progress. RECOMMENDATIONS: I am recommending that we avoid any anticoagulation under the circumstances. We will initiate with Cardizem 10 mg bolus and drip and if necessary, we will use amiodarone. I discussed my thoughts in detail with the patient. Thank you very much for the consult. MMODL / IJN: [id number] /
[2019-08-10 11:47] LABS: Glucose,Whole Blood 229 mg/dL (75-99)
--- NOTE | 2019-08-10 14:34 | P.PN ---
Subjective Progress Note Date: 08/10/19 Principal diagnosis: anemia Patient is an 84-year-old male to past medical history of coronary artery disease status post CABG years ago, glaucoma, diabetes on insulin, HTN, and hypothyroidism who presented initially for elective bone marrow biopsy. Labs were taken at that point in time and showed hemoglobin of 6.7. Dr. Nicholson recommended one unit of blood and observation overnight. He was admitted for monitoring. After blood transfusion was complete nurse found blood in bed soaking sheets with IV dislodged. It was difficult to determine if IV had been leaking or if bleeding had occurred. His hemoglobin was recheck and was unchanged an additional unit of blood was ordered. Repeated HgB after one unit was unchanged. Platelets on the morning of 08/09 where 5 and 1 unit of platelets were ordered. On the morning of 08/10 he developed A fib with a 2:1 block at the rate of 150. He was given a dose of his oral metoprolol and transferred to the ICU as selective overflow. He was started on a cardizem gtt. His troponin was mildly elevated. He was unable to be safely anticoagulated due to thrombocytopenia and severe anemia Patient seen and examined at bedside. Feeling better after heart rate improved. No chest pain, palpitation, or shortness of breath. No nausea or vomiting. No diarrhea or constiaon. Objective - Vital Signs Vital signs: Vital Signs Temp 97.8 F 08/10/19 08:10 Pulse 86 08/10/19 12:00 Resp 31 H 08/10/19 12:00 BP 98/62 08/10/19 12:00 Pulse Ox 97 08/10/19 12:00 Intake & Output 08/09/19 08/10/19 08/10/19 18:59 06:59 18:59 Intake Total 1060 1781 Output Total 420 Balance 1060 1361 Intake: Intake, IV Titration 250 500 Amount Sodium Chloride 0.9% 1, 250 500 000 ml @ 50 mls/hr IV . Q20H [facility] Rx#:[id number] Oral 500 980 Blood Product 310 301 Platelet Pheresis Acda2 0 301 Unit [id number] Rc As-3 Unit 310 [id number] Rc Pheresis 2 As3 Unit 0 [id number] Output: Urine 420 Other: Voiding Method Urinal # Voids 1 1 # Bowel Movements 1 1 - Exam General: Chronically ill appearing, no distress, appears at stated age Derm: multiple bruises worse on left and right arm, petichae unchanged. 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 Neuro: CN II-XI grossly intact, no focal neuro deficits Psych: Alert, oriented, appropriate affect - Labs CBC & Chem 7: 08/10/19 07:24 08/10/19 07:24 Labs: Abnormal Lab Results - Last 24 Hours (Table) 08/08/19 08/09/19 08/09/19 Range/Units 14:44 17:12 19:35 WBC 1.4 L* (3.8-10.6) k/uL RBC 2.37 L (4.30-5.90) m/uL Hgb 7.7 L (13.0-17.5) gm/dL Hct 23.0 L (39.0-53.0) % RDW 17.1 H (11.5-15.5) % Plt Count 25 L D (150-450) k/uL Neutrophils # (Manual) (1.3-7.7) k/uL Lymphocytes # (Manual) (1.0-4.8) k/uL Metamyelocytes # (Man) (0) k/uL Myelocytes # (Manual) (0) k/uL Sodium (137-145) mmol/L Carbon Dioxide (22-30) mmol/L BUN (9-20) mg/dL Glucose (74-99) mg/dL POC Glucose (mg/dL) 324 H (75-99) mg/dL Total Bilirubin (0.2-1.3) mg/dL ALT (4-49) U/L Troponin I (0.000-0.034) ng/mL Total Protein (6.3-8.2) g/dL Albumin (3.5-5.0) g/dL Crossmatch See Detail 08/09/19 08/10/19 08/10/19 Range/Units 20:08 06:52 07:24 WBC 1.4 L* (3.8-10.6) k/uL RBC 2.51 L (4.30-5.90) m/uL Hgb 8.2 L (13.0-17.5) gm/dL Hct 24.1 L (39.0-53.0) % RDW 16.8 H (11.5-15.5) % Plt Count 26 L (150-450) k/uL Neutrophils # (Manual) 0.80 L (1.3-7.7) k/uL Lymphocytes # (Manual) 0.36 L (1.0-4.8) k/uL Metamyelocytes # (Man) 0.01 H (0) k/uL Myelocytes # (Manual) 0.03 H (0) k/uL Sodium (137-145) mmol/L Carbon Dioxide (22-30) mmol/L BUN (9-20) mg/dL Glucose (74-99) mg/dL POC Glucose (mg/dL) 409 H 217 H (75-99) mg/dL Total Bilirubin (0.2-1.3) mg/dL ALT (4-49) U/L Troponin I (0.000-0.034) ng/mL Total Protein (6.3-8.2) g/dL Albumin (3.5-5.0) g/dL Crossmatch 08/10/19 08/10/19 08/10/19 Range/Units 07:24 07:24 08:01 WBC (3.8-10.6) k/uL RBC (4.30-5.90) m/uL Hgb (13.0-17.5) gm/dL Hct (39.0-53.0) % RDW (11.5-15.5) % Plt Count (150-450) k/uL Neutrophils # (Manual) (1.3-7.7) k/uL Lymphocytes # (Manual) (1.0-4.8) k/uL Metamyelocytes # (Man) (0) k/uL Myelocytes # (Manual) (0) k/uL Sodium 135 L (137-145) mmol/L Carbon Dioxide 21 L (22-30) mmol/L BUN 42 H (9-20) mg/dL Glucose 204 H (74-99) mg/dL POC Glucose (mg/dL) 208 H (75-99) mg/dL Total Bilirubin 1.8 H (0.2-1.3) mg/dL ALT 55 H (4-49) U/L Troponin I 0.138 H* (0.000-0.034) ng/mL Total Protein 5.8 L (6.3-8.2) g/dL Albumin 3.1 L (3.5-5.0) g/dL Crossmatch 08/10/19 08/10/19 Range/Units 11:35 12:43 WBC (3.8-10.6) k/uL RBC (4.30-5.90) m/uL Hgb (13.0-17.5) gm/dL Hct (39.0-53.0) % RDW (11.5-15.5) % Plt Count (150-450) k/uL Neutrophils # (Manual) (1.3-7.7) k/uL Lymphocytes # (Manual) (1.0-4.8) k/uL Metamyelocytes # (Man) (0) k/uL Myelocytes # (Manual) (0) k/uL Sodium (137-145) mmol/L Carbon Dioxide (22-30) mmol/L BUN (9-20) mg/dL Glucose (74-99) mg/dL POC Glucose (mg/dL) 229 H (75-99) mg/dL Total Bilirubin (0.2-1.3) mg/dL ALT (4-49) U/L Troponin I 2.560 H* (0.000-0.034) ng/mL Total Protein (6.3-8.2) g/dL Albumin (3.5-5.0) g/dL Crossmatch Assessment and Plan Assessment: Atrial fibrillation with rapid ventricular response -Metoprolol PO given stat, patient transferred to ICU as selective over flow - Metoprolol IV was ordered but patient was seen by cardio and given cardizem and started on a cardizem gtt - not a candidate for anticoagulation due to Plt of 5. - tele Elevated troponin - initally though to be due to low blood count and A fib however up trending and maybe due to ischemia. - Unable to have ASA due to plt count and possible recent bleeding - cardio recs - tele - trend troponin - repeat echo LV function Pancytopenia with worsening anemia and thrombocytopenia -s/p 3 units of pRBC (likell only 2 infused), s/p 1 unit of platelets -Had bone marrow biopsy performed 08/08/19 and results are currently pending -Repeat CBC in a.m. - Await Oncolpogy recs Diabetes mellitus type 2 with hyperglycemia -Last hemoglobin A1c was in March 2019 at 6.7 - long-acting insulin, sliding scale insulin, Tradjenta -Hold Amaryl -Follow blood sugars Hypertension, controlled -metoprolol spironolactone, hctz, Norvasc - follow BP Cardiomyopathy with EF 45-50% - diuretics, BB - cardio recs History of coronary artery disease -Avoid aspirin with low platelet count -Continue with statin therapy Anemia worsening and not responding appropriatly to transfusion. Transition to inpatient status DVT prophylaxis: SCDs Discussed with: Patient, nursing Anticipated discharge date: In a.m. Anticipated discharge place: home A total of 35 minutes was spent on the care of this complex patient more than 50% of the time was spent in counseling and care coordination.
[2019-08-10 17:05] LABS: Glucose,Whole Blood 340 mg/dL (75-99)
--- NOTE | 2019-08-10 17:15 | P.CONS ---
History of Present Illness - Reason for Consult Consult date: 08/10/19 - Chief Complaint pancytopenia - History of Present Illness This is a very pleasant 84-year-old gentleman with a past medical history of coronary artery disease status post CABG, glaucoma, diabetes, hypertension and hypothyroidism who was initially sent to the hospital problems transfusion since hemoglobin dropped to 6.7. The patient had bone marrow biopsy for pancytopenia being evaluated for possible myelodysplastic syndrome. The patient after receiving transfusion started having tachycardia with arrhythmia with hypotension and has now been transferred to ICU. Complains of some chest discomfort and significant fatigue does not complain of any gum bleeding or any significant bleeding elsewhere. The patient does have purpura on the abdomen and thighs. He is currently sleepy and does not have any other complaint. Past social family medical history reviewed. Review of Systems all 14 point review of systems Asst. documented. Fatigue shortness of breath child distress discomfort weakness Past Medical History Past Medical History: Coronary Artery Disease (CAD), Diabetes Mellitus, Hypertension, Myocardial Infarction (PA), Skin Disorder Additional Past Medical History / Comment(s): Pancytopenia currently being worked up, past hx diarrhea for few weeks. Last Myocardial Infarction Date:: History of Any Multi-Drug Resistant Organisms: None Reported Past Surgical History: Adenoidectomy, Heart Catheterization With Stent, Tonsillectomy Additional Past Surgical History / Comment(s): Triple CABG 1992; PTCA w/ stent later. Past Anesthesia/Blood Transfusion Reactions: No Reported Reaction Date of Last Stent Placement:: unknown Smoking Status: Former smoker - Past Family History Mother Family Medical History: CVA/TIA, Dementia Father Family Medical History: Coronary Artery Disease (CAD), Hypertension Additional Family Medical History / Comment(s): sibliings have passed from [place] Brother(s) Family Medical History: Cancer Sister(s) Family Medical History: Cancer Medications and Allergies Home Medications Medication Instructions Recorded Confirmed Type Irbesartan [Avapro] 300 mg PO DAILY 12/12/14 08/07/19 History Niacin [Niaspan] 1,000 mg PO HS 12/12/14 08/07/19 History Pravastatin Sodium [Pravachol] 20 mg PO DAILY 12/12/14 08/07/19 History amLODIPine [Norvasc] 5 mg PO DAILY 12/12/14 08/07/19 History Desloratadine 5 mg PO DAILY 01/26/19 08/07/19 History Glimepiride [Amaryl] 4 mg PO BID 01/26/19 08/07/19 History Levothyroxine Sodium [Synthroid] 25 mcg PO DAILY 01/26/19 08/07/19 History Spironolactone-Hctz 25-25Mg 0.5 tab PO DAILY 01/26/19 08/07/19 History [Aldactazide 25-25 MG] Brimonidine Tartrate/Timolol 1 drop BOTH EYES BID 07/31/19 08/07/19 History [Combigan 0.2%-0.5% Eye Drops] Insulin Glargine,Hum.rec.anlog 90 unit SQ QAM 07/31/19 08/07/19 History [Nata Garsiaostkalli] Netarsudil Mesylat/Latanoprost 1 drop BOTH EYES BID 07/31/19 08/07/19 History [Rocklatan 0.02%-0.005% Eye Drp] Calcium Carbonate [Tums] 500 mg PO QID PRN 08/07/19 08/07/19 History Loperamide HCl [Imodium A-D] 2 mg PO DIRECTED PRN 08/07/19 08/07/19 History Meclizine HCl 25 mg PO DAILY 08/07/19 08/07/19 History Metoprolol Succinate [Toprol XL] 12.5 mg PO DAILY 08/07/19 08/07/19 History sitaGLIPtin PHOSPHATE [Januvia] 100 mg PO DAILY 08/07/19 08/07/19 History Allergies Allergy/AdvReac Type Severity Reaction Status Date / Time insulin degludec Allergy Rash/Hives Verified 08/07/19 13:51 [From Tresiba FlexTouch U-100] Physical Exam Vitals: Vital Signs Temp Pulse Pulse Resp BP BP Pulse Ox 08/10/19 12:00 86 86 31 H 98/62 97 08/10/19 11:30 107 H 17 95/64 93 L 08/10/19 11:00 111 H 23 98/61 93 L 08/10/19 10:30 126 H 22 90/66 94 L 08/10/19 10:00 121 H 22 117/72 94 L 08/10/19 09:30 128 H 22 112/70 97 01/12/20 09:00 136 H 152 H 22 119/95 95 08/10/19 08:30 122 H 23 115/70 95 08/10/19 08:10 97.8 F 152 H 21 115/70 95 08/10/19 08:03 149 H 31 H 103/79 96 08/10/19 07:23 152 H 18 115/72 98 08/10/19 06:50 97.5 F L 148 H 24 134/78 97 08/10/19 05:00 98.1 F 89 18 106/55 97 08/10/19 00:00 94 18 08/09/19 20:14 97.8 F 94 18 122/60 93 L 08/09/19 19:02 98.3 F 62 16 122/56 92 L 08/09/19 17:39 97.8 F 78 16 134/78 95 08/09/19 17:37 97.1 F L 98 16 127/60 98 08/09/19 17:09 96.1 F L 80 16 117/58 97 Intake and Output 08/10/19 08/10/19 08/10/19 06:59 14:59 22:59 Intake Total 540 Output Total 270 Balance 270 Intake: Intake, IV Titration 300 Amount Sodium Chloride 0.9% 1, 300 000 ml @ 50 mls/hr IV . Q20H [facility] Rx#:[id number] Oral 240 Output: Urine 270 Other: Voiding Method Urinal # Voids 1 # Bowel Movements 1 The patient appeared well nourished and normally developed. Vital signs as documented. Head exam is unremarkable. No scleral icterus or corneal arcus noted. Neck is without jugular venous distension, thyromegaly, or carotid bruits. Carotid upstrokes are brisk bilaterally. Lungs are clear to auscultation and percussion. Cardiac exam reveals the PMI to be normally sized and situated. Rhythm is regular. First and second heart sounds normal. No murmurs, rubs or gallops. Abdominal exam reveals normal bowel sounds, no masses, no organomegaly and no aortic enlargement. Extremities are nonedematous and both femoral and pedal pulses are normal. Results CBC & Chem 7: 08/10/19 07:24 08/10/19 07:24 Labs: Abnormal Lab Results - Last 24 Hours (Table) 08/09/19 08/09/19 08/09/19 Range/Units 17:12 19:35 20:08 WBC 1.4 L* (3.8-10.6) k/uL RBC 2.37 L (4.30-5.90) m/uL Hgb 7.7 L (13.0-17.5) gm/dL Hct 23.0 L (39.0-53.0) % RDW 17.1 H (11.5-15.5) % Plt Count 25 L D (150-450) k/uL Neutrophils # (Manual) (1.3-7.7) k/uL Lymphocytes # (Manual) (1.0-4.8) k/uL Metamyelocytes # (Man) (0) k/uL Myelocytes # (Manual) (0) k/uL Sodium (137-145) mmol/L Carbon Dioxide (22-30) mmol/L BUN (9-20) mg/dL Glucose (74-99) mg/dL POC Glucose (mg/dL) 324 H 409 H (75-99) mg/dL Total Bilirubin (0.2-1.3) mg/dL ALT (4-49) U/L Troponin I (0.000-0.034) ng/mL Total Protein (6.3-8.2) g/dL Albumin (3.5-5.0) g/dL 08/10/19 08/10/19 08/10/19 Range/Units 06:52 07:24 07:24 WBC 1.4 L* (3.8-10.6) k/uL RBC 2.51 L (4.30-5.90) m/uL Hgb 8.2 L (13.0-17.5) gm/dL Hct 24.1 L (39.0-53.0) % RDW 16.8 H (11.5-15.5) % Plt Count 26 L (150-450) k/uL Neutrophils # (Manual) 0.80 L (1.3-7.7) k/uL Lymphocytes # (Manual) 0.36 L (1.0-4.8) k/uL Metamyelocytes # (Man) 0.01 H (0) k/uL Myelocytes # (Manual) 0.03 H (0) k/uL Sodium 135 L (137-145) mmol/L Carbon Dioxide 21 L (22-30) mmol/L BUN 42 H (9-20) mg/dL Glucose 204 H (74-99) mg/dL POC Glucose (mg/dL) 217 H (75-99) mg/dL Total Bilirubin 1.8 H (0.2-1.3) mg/dL ALT 55 H (4-49) U/L Troponin I (0.000-0.034) ng/mL Total Protein 5.8 L (6.3-8.2) g/dL Albumin 3.1 L (3.5-5.0) g/dL 08/10/19 08/10/19 08/10/19 Range/Units 07:24 08:01 11:35 WBC (3.8-10.6) k/uL RBC (4.30-5.90) m/uL Hgb (13.0-17.5) gm/dL Hct (39.0-53.0) % RDW (11.5-15.5) % Plt Count (150-450) k/uL Neutrophils # (Manual) (1.3-7.7) k/uL Lymphocytes # (Manual) (1.0-4.8) k/uL Metamyelocytes # (Man) (0) k/uL Myelocytes # (Manual) (0) k/uL Sodium (137-145) mmol/L Carbon Dioxide (22-30) mmol/L BUN (9-20) mg/dL Glucose (74-99) mg/dL POC Glucose (mg/dL) 208 H 229 H (75-99) mg/dL Total Bilirubin (0.2-1.3) mg/dL ALT (4-49) U/L Troponin I 0.138 H* (0.000-0.034) ng/mL Total Protein (6.3-8.2) g/dL Albumin (3.5-5.0) g/dL 08/10/19 08/10/19 Range/Units 12:43 16:53 WBC (3.8-10.6) k/uL RBC (4.30-5.90) m/uL Hgb (13.0-17.5) gm/dL Hct (39.0-53.0) % RDW (11.5-15.5) % Plt Count (150-450) k/uL Neutrophils # (Manual) (1.3-7.7) k/uL Lymphocytes # (Manual) (1.0-4.8) k/uL Metamyelocytes # (Man) (0) k/uL Myelocytes # (Manual) (0) k/uL Sodium (137-145) mmol/L Carbon Dioxide (22-30) mmol/L BUN (9-20) mg/dL Glucose (74-99) mg/dL POC Glucose (mg/dL) 340 H (75-99) mg/dL Total Bilirubin (0.2-1.3) mg/dL ALT (4-49) U/L Troponin I 2.560 H* (0.000-0.034) ng/mL Total Protein (6.3-8.2) g/dL Albumin (3.5-5.0) g/dL Assessment and Plan Assessment: Impression and plan: 1. 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 - Plan for waiting for bone marrow biopsy results to initiate treatment. If proven MDS/leukemia will need to be treated urgently. Consideration of Vidaza Venatoclax. - Transfusions to keep hemoglobin above 7 and platelets about 10,000. - We will avoid use of Neupogen in view of suspected blasts. - evaluate for GI bleeding. - Check LDH, uric acid, haptoglobin, fibrinogen. 2. Diabetes, hypertension, coronary artery disease status post CABG 3. Currently arrhythmia with hypotension with tachycardia symptomatic. Thank you for allowing us to participate in the care of your patient. Please feel free to call us with any questions. Luis Phillips MD Social Work Lecturer, [facility] Hematology Oncology [id number], [address] [place] [address] Office: [phone], Time with Patient: Greater than 30
[2019-08-10 19:26] LABS: Uric Acid 7.1 mg/dL (3.5-8.5)
[2019-08-10] MEDS ORDERED: METOPROLOL TARTRATE 25 MG TAB PO SCH (21:00)
[2019-08-10 21:41] LABS: Glucose,Whole Blood 140 mg/dL (75-99)
[2019-08-11 06:05] LABS: Anisocytosis Slight; HGB 7.8 gm/dL (13.0-17.5); MCH 33.8 pg (25.0-35.0); MCHC 35.6 g/dL (31.0-37.0); MCV 95.1 fL (80.0-100.0); Mean Platelet Volume 11.4; RBC 2.32 m/uL (4.30-5.90); RDW 16.7 % (11.5-15.5); WBC 1.7 k/uL (3.8-10.6)
[2019-08-11 06:06] LABS: Platelet Count 23 k/uL (150-450)
[2019-08-11 06:30] LABS: Albumin 2.8 g/dL (3.5-5.0); Calcium 8.2 mg/dL (8.4-10.2); Potassium 4.2 mmol/L (3.5-5.1); Total Bilirubin 0.7 mg/dL (0.2-1.3); Total Protein 5.8 g/dL (6.3-8.2)
[2019-08-11 07:17] LABS: Glucose,Whole Blood 95 mg/dL (75-99)
[2019-08-11] MEDS: LACTATED RINGERS 1,000 ML IV SCH (08:43)
[2019-08-11] MEDS ORDERED: DEXTROSE 5% IN WATER 100 ML with AMIODARONE 150 MG IV ONE (09:00)
[2019-08-11] MEDS ORDERED: AMIODARONE 360 MG in DEXTROSE 5% IN WATER 200 ML IV ONE ×2 (09:15)
[2019-08-11] MEDS: SODIUM CHLORIDE 0.9% 1,000 ML IV SCH (09:20)
[2019-08-11] MEDS: LEVOTHYROXINE 25 MCG TAB PO SCH (09:21)
[2019-08-11] MEDS: INSULIN DETEMIR (LEVEMIR) 100 UNIT/ML SYR SQ SCH (09:21)
[2019-08-11] MEDS: INSULIN ASPART (NovoLOG) 100 UNIT/ML VIAL SQ SCH ×4 (09:21→21:57)
[2019-08-11] MEDS: BRIMONIDINE TARTRATE 0.2% DROPS 5 ML BTL BOTH EYES SCH ×2 (09:22→22:07)
[2019-08-11] MEDS: TIMOLOL 0.5% OPHTH DROPS 5 ML BTL BOTH EYES SCH ×2 (09:22→22:07)
[2019-08-11] MEDS: LORATADINE 10 MG TAB PO SCH (09:24)
[2019-08-11] MEDS: LINAGLIPTIN 5 MG TABLET PO SCH (09:24)
[2019-08-11] MEDS: MECLIZINE 25 MG TAB PO SCH (09:24)
[2019-08-11] MEDS: PRAVASTATIN SODIUM 20 MG TAB PO SCH (09:25)
--- NOTE | 2019-08-11 10:53 | PN ---
PROGRESS NOTE Mr. Murray is a gentleman with ischemic cardiomyopathy, prior bypass surgery, pancytopenia being worked up. He is now in atrial flutter, rate is in the 120 range. I am recommending that we discontinue amlodipine, start him on amiodarone, place him on losartan. Echo revealed ejection fraction which has impaired and his usual ejection fraction is in the range of 40%-45%, but given the atrial flutter, the ejection fraction is lower. Vitals are stable, there is JVD of 1 cm, no carotid bruit. S1, S2 with tachycardia as noted, short systolic murmur noted. Lungs reveal diminished breath sounds at both bases. Abdomen and lower extremity exam unchanged. RECOMMENDATIONS: I recommend amiodarone intravenously. Add losartan. Discontinue amlodipine. MMODL / IJN: [id number] /
[2019-08-11] MEDS: LOSARTAN 50 MG TAB PO SCH (10:55)
[2019-08-11] MEDS: SPIRONOLACTONE-HCTZ 25-25MG 1 EACH TAB PO SCH (10:55)
[2019-08-11] MEDS: METOPROLOL TARTRATE 50 MG TAB PO SCH ×2 (10:55→17:28)
[2019-08-11 12:11] LABS: Glucose,Whole Blood 169 mg/dL (75-99)
--- NOTE | 2019-08-11 12:37 | ECHOF ---
Referral Reason:LV function, hypokenesis MEASUREMENTS -------- HEIGHT: 172.7 cm WEIGHT: 80.7 kg BP: 101/61 RVIDd: 2.5 cm (< 3.3) IVSd: 1.2 cm (0.6 - 1.1) LVIDd: 4.9 cm (3.9 - 5.3) LVPWd: 1.3 cm (0.6 - 1.1) IVSs: 1.4 cm LVIDs: 4.2 cm LVPWs: 1.3 cm RAP: 5.00 mmHg RVSP: 26.84 mmHg FINDINGS -------- The rhythm appears to be atrial flutter. Limited Study Overall left ventricular systolic function is moderately impaired with, an EF between 35 - 40 %. Lumason used CONCLUSIONS -------- 1. The rhythm appears to be atrial flutter. 2. Limited Study for LV function. 3. Overall left ventricular systolic function is moderately impaired with, an EF between 35 - 40 %. 4. Lumason used BI APPLICATION DEVELOPER: Viv Irwin RD
--- NOTE | 2019-08-11 14:52 | P.PN ---
Subjective Chart was reviewed patient was seen and examined. Patient is up in the chair with lunch. He does not have any particular symptoms at this point. He remains in atrial flutter with tachycardia. Objective - Vital Signs Vital signs: Vital Signs Temp 97.5 F L 08/11/19 12:00 Pulse 121 H 08/11/19 12:15 Resp 17 08/11/19 12:15 BP 100/58 08/11/19 12:15 Pulse Ox 99 08/11/19 12:00 Intake & Output 08/10/19 08/11/19 08/11/19 18:59 06:59 18:59 Intake Total 500 1040 50 Output Total 400 Balance 100 1040 50 Weight 83.6 kg Intake: IV 500 600 50 Sodium Chloride 0.9% 1, 500 600 50 000 ml @ 50 mls/hr IV . Q20H [facility] Rx#:[id number] Oral 440 Output: Urine 400 Other: Voiding Method Urinal Urinal Urinal # Voids 1 1 # Bowel Movements 1 - Exam Vital Signs: I have reviewed the vital signs. GENERAL: Well-nourished, Well-developed , no apparent distress, cooperative Eyes: PERRL, extraoculry movements intact, clear conjunctiva Head: : Atraumatic external nose and ears, oropharyngeal mucosa is moist without lesions or exudates Neck: Symmetric, trachea midline, No thyromegaly, no masses or neck vain pulsation, no neck rigidity CVS: +S1/S2, tachycardic and irregular no significant murmurs RESP: Unlabored respiratory effort. Clear to auscultation bilaterally. Abdomen: Bowel sounds present in all 4 quadrants, Soft to palpation, Nontender/Nondistended, No hepatosplenomegaly, no hernias or masses, no CVA tnderness Musculoskeletal: Extremities w/o deformity, No cyanosis or clubbing, no joint swelling Skin: Warm, Dry. No rashes or lesions Neuro: disc pad plate filler II-XII grossly intact, motor strenght 5/5 i upper and lower extremit ies, no clonus, patellar DTRs 2+ and sympetrical Psych: Awake, Alert, & Oriented (AAO) x3 Appropriate mood and affect - Labs CBC & Chem 7: 08/11/19 05:20 08/11/19 05:20 Labs: Abnormal Lab Results - Last 24 Hours (Table) 08/08/19 08/10/19 08/10/19 Range/Units 14:44 16:53 18:59 WBC (3.8-10.6) k/uL RBC (4.30-5.90) m/uL Hgb (13.0-17.5) gm/dL Hct (39.0-53.0) % RDW (11.5-15.5) % Plt Count (150-450) k/uL Haptoglobin (31.2-198.0) mg/dL Fibrinogen (200-500) mg/dL Sodium (137-145) mmol/L Chloride (98-107) mmol/L BUN (9-20) mg/dL Glucose (74-99) mg/dL POC Glucose (mg/dL) 340 H (75-99) mg/dL Calcium (8.4-10.2) mg/dL ALT (4-49) U/L Lactate Dehydrogenase (313-618) U/L Troponin I 2.630 H* (0.000-0.034) ng/mL Total Protein (6.3-8.2) g/dL Albumin (3.5-5.0) g/dL Crossmatch See Detail 08/10/19 08/10/19 08/10/19 Range/Units 18:59 18:59 18:59 WBC (3.8-10.6) k/uL RBC (4.30-5.90) m/uL Hgb (13.0-17.5) gm/dL Hct (39.0-53.0) % RDW (11.5-15.5) % Plt Count (150-450) k/uL Haptoglobin 222.0 H (31.2-198.0) mg/dL Fibrinogen 662 H (200-500) mg/dL Sodium (137-145) mmol/L Chloride (98-107) mmol/L BUN (9-20) mg/dL Glucose (74-99) mg/dL POC Glucose (mg/dL) (75-99) mg/dL Calcium (8.4-10.2) mg/dL ALT (4-49) U/L Lactate Dehydrogenase 744 H (313-618) U/L Troponin I (0.000-0.034) ng/mL Total Protein (6.3-8.2) g/dL Albumin (3.5-5.0) g/dL Crossmatch 08/10/19 08/11/19 08/11/19 Range/Units 21:30 01:41 05:20 WBC 1.7 L (3.8-10.6) k/uL RBC 2.32 L (4.30-5.90) m/uL Hgb 7.8 L (13.0-17.5) gm/dL Hct 22.0 L (39.0-53.0) % RDW 16.7 H (11.5-15.5) % Plt Count 23 L (150-450) k/uL Haptoglobin (31.2-198.0) mg/dL Fibrinogen (200-500) mg/dL Sodium (137-145) mmol/L Chloride (98-107) mmol/L BUN (9-20) mg/dL Glucose (74-99) mg/dL POC Glucose (mg/dL) 140 H (75-99) mg/dL Calcium (8.4-10.2) mg/dL ALT (4-49) U/L Lactate Dehydrogenase (313-618) U/L Troponin I 1.890 H* (0.000-0.034) ng/mL Total Protein (6.3-8.2) g/dL Albumin (3.5-5.0) g/dL Crossmatch 08/11/19 08/11/19 Range/Units 05:20 12:00 WBC (3.8-10.6) k/uL RBC (4.30-5.90) m/uL Hgb (13.0-17.5) gm/dL Hct (39.0-53.0) % RDW (11.5-15.5) % Plt Count (150-450) k/uL Haptoglobin (31.2-198.0) mg/dL Fibrinogen (200-500) mg/dL Sodium 136 L (137-145) mmol/L Chloride 109 H (98-107) mmol/L BUN 37 H (9-20) mg/dL Glucose 66 L (74-99) mg/dL POC Glucose (mg/dL) 169 H (75-99) mg/dL Calcium 8.2 L (8.4-10.2) mg/dL ALT 52 H (4-49) U/L Lactate Dehydrogenase (313-618) U/L Troponin I (0.000-0.034) ng/mL Total Protein 5.8 L (6.3-8.2) g/dL Albumin 2.8 L (3.5-5.0) g/dL Crossmatch Assessment and Plan Assessment: 1. Atrial flatter with rapid ventricular response Cardiology following Not a candidate for anticoagulation due to trauma cytopenia 2. Pancytopenia with worsening anemia and thrombocytopenia -s/p 3 units of pRBC (likell only 2 infused), s/p 1 unit of platelets -Had bone marrow biopsy performed 08/08/19 and results are currently pending -Repeat CBC in a.m. - Await Oncolpogy recs Ruling out MDS versus acute leukemia 3. Diabetes mellitus type 2 with hyperglycemia -Last hemoglobin A1c was in March 2019 at 6.7 - long-acting insulin, sliding scale insulin, Tradjenta -Hold Amaryl -Follow blood sugars 4. Hypertension, controlled Norvasc discontinued and losartan started per cardiology recommendation due to low EF -metoprolol spironolactone, hctz - follow BP 5. Cardiomyopathy with EF 45-50% - diuretics, BB - cardio recs 6. History of coronary artery disease -Avoid aspirin with low platelet count -Continue with statin therapy
[2019-08-11] MEDS: AMIODARONE 300 MG in DEXTROSE 5% IN WATER 250 ML IV SCH ×2 (15:46)
[2019-08-11 17:05] LABS: Glucose,Whole Blood 199 mg/dL (75-99)
--- NOTE | 2019-08-11 19:47 | PN ---
PROGRESS NOTE I re-evaluated Mr. Murray. This gentleman continues to be in atrial flutter, rate of 120, and ejection fraction is in the 35% to 40% range. Anticoagulation is almost impossible, given his blood counts. He has pancytopenia. However, the risk is high but I will talk to Dr. Hernadez and see if he can do a transesophageal echo followed by electrical cardioversion even without anticoagulation because of his situation. I will discuss this in the morning and keep him n.p.o. except for medications at this time. Prognosis remains guarded. MMODL / IJN: [id number] /
[2019-08-11 21:43] LABS: Glucose,Whole Blood 122 mg/dL (75-99)
[2019-08-12] MEDS: AMIODARONE 300 MG in DEXTROSE 5% IN WATER 250 ML IV SCH ×2 (01:57)
[2019-08-12 05:34] LABS: Anisocytosis Slight; HCT 24.2 % (39.0-53.0); HGB 8.2 gm/dL (13.0-17.5); MCH 32.9 pg (25.0-35.0); MCHC 33.8 g/dL (31.0-37.0); MCV 97.1 fL (80.0-100.0); Macrocytosis Slight; Mean Platelet Volume 10.9; RBC 2.49 m/uL (4.30-5.90); RDW 16.3 % (11.5-15.5); WBC 1.9 k/uL (3.8-10.6)
[2019-08-12 05:38] LABS: Platelet Count 24 k/uL (150-450)
[2019-08-12 05:44] LABS: African American GFR (CKD) >90 (>60 ml/min/1.73 sqM); Anion Gap 7 mmol/L; Blood Urea Nitrogen 31 mg/dL (9-20); Calcium 8.3 mg/dL (8.4-10.2); Carbon Dioxide 22 mmol/L (22-30); Chloride 107 mmol/L (98-107); Non-African American GFR(CKD) 82 (>60 ml/min/1.73 sqM); Sodium 136 mmol/L (137-145)
[2019-08-12 05:54] LABS: Glucose 41 mg/dL (74-99)
[2019-08-12 06:07] LABS: Glucose,Whole Blood 48 mg/dL (75-99)
[2019-08-12] MEDS ORDERED: DEXTROSE 10 % IN WATER 250 ML IV ONE (06:15)
[2019-08-12] MEDS: SODIUM CHLORIDE 0.9% 1,000 ML IV SCH (06:44)
[2019-08-12] MEDS ORDERED: DEXTROSE 5% IN WATER 1,000 ML IV SCH (06:45)
[2019-08-12 06:53] LABS: Glucose,Whole Blood 130 mg/dL (75-99)
[2019-08-12] MEDS: LEVOTHYROXINE 25 MCG TAB PO SCH (07:11)
[2019-08-12] MEDS: INSULIN ASPART (NovoLOG) 100 UNIT/ML VIAL SQ SCH ×4 (07:12→21:18)
[2019-08-12] MEDS: INSULIN DETEMIR (LEVEMIR) 100 UNIT/ML SYR SQ SCH (07:12)
[2019-08-12 07:47] LABS: Glucose,Whole Blood 100 mg/dL (75-99)
[2019-08-12 08:11] LABS: Glucose,Whole Blood 101 mg/dL (75-99)
[2019-08-12] MEDS: LACTATED RINGERS 1,000 ML IV SCH (08:11)
[2019-08-12] MEDS: TIMOLOL 0.5% OPHTH DROPS 5 ML BTL BOTH EYES SCH ×2 (08:25→21:17)
[2019-08-12] MEDS: BRIMONIDINE TARTRATE 0.2% DROPS 5 ML BTL BOTH EYES SCH ×2 (08:34→21:16)
[2019-08-12] MEDS: PRAVASTATIN SODIUM 20 MG TAB PO SCH (08:35)
[2019-08-12] MEDS: SPIRONOLACTONE-HCTZ 25-25MG 1 EACH TAB PO SCH (08:35)
[2019-08-12] MEDS: LOSARTAN 50 MG TAB PO SCH (08:35)
[2019-08-12] MEDS: METOPROLOL TARTRATE 50 MG TAB PO SCH ×2 (08:36→21:17)
[2019-08-12] MEDS: LORATADINE 10 MG TAB PO SCH (08:36)
[2019-08-12] MEDS: AMIODARONE 200 MG TAB PO SCH ×2 (08:36→21:17)
[2019-08-12] MEDS: MECLIZINE 25 MG TAB PO SCH (08:36)
--- NOTE | 2019-08-12 08:46 | PN ---
PROGRESS NOTE Mr. Seth Murray is an 84-year-old gentleman with history of aortocoronary bypass surgery and known paroxysmal atrial flutter fibrillation syndrome. He is currently in atrial flutter, rate has improved to 100 to 110. It was much higher yesterday. He still has pancytopenia. Workup is in progress. Hemodynamically, he is stable. Decent urine output. I recommended that we keep him n.p.o. for possible cardioversion, but given the fact he has low platelet count and low hemoglobin, he cannot be anticoagulated and Dr. Hernadez does not feel comfortable doing a NELLI, cardioversion and wishes that we pursue rate control which actually has improved. I will therefore continue amiodarone drip, leave him on the current medications and no other intervention is necessary at this time. He is maintaining the blood pressure very well and the heart rate has come down. Vitals are stable. JVD 1 cm. No carotid bruit. S1, S2 heard normally, irregular rate and rhythm noted, short systolic murmur noted. Lungs reveal diminished air entry. Rest of physical examination is unchanged. Plan is to defer cardioversion. Continue amiodarone orally and see how he does. MMODL / IJN: [id number] /
[2019-08-12 09:20] LABS: Glucose,Whole Blood 83 mg/dL (75-99)
[2019-08-12] MEDS: LINAGLIPTIN 5 MG TABLET PO SCH (10:20)
[2019-08-12 10:21] LABS: Glucose,Whole Blood 113 mg/dL (75-99)
[2019-08-12 11:23] LABS: Glucose,Whole Blood 110 mg/dL (75-99)
[2019-08-12 11:49] LABS: Glucose,Whole Blood 105 mg/dL (75-99)
[2019-08-12 16:44] LABS: Glucose,Whole Blood 187 mg/dL (75-99)
--- NOTE | 2019-08-12 18:19 | P.PN ---
Subjective Patient is up in the chair he does not have much of the complaints. He ate his dinner fairly well. He's been started on amiodarone drip for his a flutter. He reports that he's been having "huffing and puffing" for many years but he denies being overtly short of breath or coughing. Objective - Vital Signs Vital signs: Vital Signs Temp 97.3 F L 08/12/19 12:00 Pulse 120 H 08/12/19 12:00 Resp 18 08/12/19 16:00 BP 126/68 08/12/19 12:00 Pulse Ox 99 08/12/19 08:00 Intake & Output 08/11/19 08/12/19 08/12/19 18:59 06:59 18:59 Intake Total 783 850 750 Output Total 250 1225 Balance 783 600 -475 Weight 83 kg Intake: IV 550 600 100 Sodium Chloride 0.9% 1, 550 600 100 000 ml @ 50 mls/hr IV . Q20H [facility] Rx#:[id number] Intake, IV Titration 233 250 150 Amount Amiodarone 300 mg In 50 250 Dextrose 5% in Water 250 ml @ 0.5 MG/MIN 25 mls/hr IV .Q10H [facility] [place] Rx#: [id number] Amiodarone 360 mg In 183 Dextrose 5% in Water 200 ml @ 1 MG/MIN 33.333 mls/ hr IV .Q6H [facility] Rx#: [id number] Dextrose 5% in Water 1, 150 000 ml @ 75 mls/hr IV . [id number] [facility] [place] Rx#:[id number] Oral 500 Output: Urine 250 1225 Other: Voiding Method Toilet Toilet Toilet Urinal # Voids 1 1 # Bowel Movements 1 - Exam Vital Signs: I have reviewed the vital signs. GENERAL: Well-nourished, Well-developed , no apparent distress, cooperative Eyes: PERRL, extraoculry movements intact, clear conjunctiva Head: : Atraumatic external nose and ears, oropharyngeal mucosa is moist without lesions or exudates Neck: Symmetric, trachea midline, No thyromegaly, no masses or neck vain pulsation, no neck rigidity CVS: +S1/S2, tachycardic and irregular no significant murmurs RESP: Unlabored respiratory effort. He has some expiratory wheezes today Abdomen: Bowel sounds present in all 4 quadrants, Soft to palpation, Nontender/Nondistended, No hepatosplenomegaly, no hernias or masses, no CVA tnderness Musculoskeletal: Extremities w/o deformity, No cyanosis or clubbing, no joint swelling - Labs CBC & Chem 7: 08/12/19 05:11 08/12/19 05:11 Labs: Abnormal Lab Results - Last 24 Hours (Table) 08/11/19 08/12/19 08/12/19 Range/Units 21:32 05:11 05:11 WBC 1.9 L (3.8-10.6) k/uL RBC 2.49 L (4.30-5.90) m/uL Hgb 8.2 L (13.0-17.5) gm/dL Hct 24.2 L (39.0-53.0) % RDW 16.3 H (11.5-15.5) % Plt Count 24 L (150-450) k/uL Sodium 136 L (137-145) mmol/L BUN 31 H (9-20) mg/dL Glucose 41 L* (74-99) mg/dL POC Glucose (mg/dL) 122 H (75-99) mg/dL Calcium 8.3 L (8.4-10.2) mg/dL 08/12/19 08/12/19 08/12/19 Range/Units 05:56 06:21 07:35 WBC (3.8-10.6) k/uL RBC (4.30-5.90) m/uL Hgb (13.0-17.5) gm/dL Hct (39.0-53.0) % RDW (11.5-15.5) % Plt Count (150-450) k/uL Sodium (137-145) mmol/L BUN (9-20) mg/dL Glucose (74-99) mg/dL POC Glucose (mg/dL) 48 L 130 H 100 H (75-99) mg/dL Calcium (8.4-10.2) mg/dL 08/12/19 08/12/19 08/12/19 Range/Units 08:00 10:09 11:12 WBC (3.8-10.6) k/uL RBC (4.30-5.90) m/uL Hgb (13.0-17.5) gm/dL Hct (39.0-53.0) % RDW (11.5-15.5) % Plt Count (150-450) k/uL Sodium (137-145) mmol/L BUN (9-20) mg/dL Glucose (74-99) mg/dL POC Glucose (mg/dL) 101 H 113 H 110 H (75-99) mg/dL Calcium (8.4-10.2) mg/dL 08/12/19 08/12/19 Range/Units 11:38 16:33 WBC (3.8-10.6) k/uL RBC (4.30-5.90) m/uL Hgb (13.0-17.5) gm/dL Hct (39.0-53.0) % RDW (11.5-15.5) % Plt Count (150-450) k/uL Sodium (137-145) mmol/L BUN (9-20) mg/dL Glucose (74-99) mg/dL POC Glucose (mg/dL) 105 H 187 H (75-99) mg/dL Calcium (8.4-10.2) mg/dL Assessment and Plan Assessment: 1. Atrial flatter with rapid ventricular response Cardiology following Not a candidate for anticoagulation due to thrombocytopenia and anemia 2. Pancytopenia with worsening anemia and thrombocytopenia -s/p 3 units of pRBC (likell only 2 infused), s/p 1 unit of platelets -Had bone marrow biopsy performed 08/08/19 and results are currently pending -Repeat CBC in a.m. - Await Oncolpogy recs Ruling out MDS versus acute leukemia 3. Diabetes mellitus type 2 with hyperglycemia Blood glucose was low this morning, we discontinued his Levemir and will proceed only with a sliding scale at this point 4. Hypertension, controlled Norvasc discontinued and losartan started per cardiology recommendation due to low EF -metoprolol spironolactone, hctz - follow BP 5. Cardiomyopathy with EF 45-50% - diuretics, BB - cardio recs 6. History of coronary artery disease -Avoid aspirin with low platelet count -Continue with statin therapy 7. Wheezing Probably component of underlying COPD Chronic per patient he does not feel any discomfort I fluids has been discontinued We will monitor for now Continue adding albuterol when necessary and Spiriva
[2019-08-12] MEDS ORDERED: ALBUTEROL NEBULIZED 2.5 MG/3 ML INHALATION PRN (18:20)
[2019-08-12 21:12] LABS: Glucose,Whole Blood 243 mg/dL (75-99)
[2019-08-13 02:13] LABS: Glucose,Whole Blood 157 mg/dL (75-99)
[2019-08-13 05:26] LABS: Anisocytosis Slight; HCT 24.6 % (39.0-53.0); HGB 8.1 gm/dL (13.0-17.5); MCH 31.9 pg (25.0-35.0); MCHC 32.8 g/dL (31.0-37.0); MCV 97.2 fL (80.0-100.0); Macrocytosis Slight; Mean Platelet Volume 12.2; RBC 2.53 m/uL (4.30-5.90); RDW 16.4 % (11.5-15.5)
[2019-08-13 05:33] LABS: Sodium 134 mmol/L (137-145)
[2019-08-13 05:36] LABS: African American GFR (CKD) >90 (>60 ml/min/1.73 sqM); Anion Gap 7 mmol/L; Calcium 8.6 mg/dL (8.4-10.2); Carbon Dioxide 22 mmol/L (22-30); Chloride 105 mmol/L (98-107); Glucose 180 mg/dL (74-99); Non-African American GFR(CKD) 79 (>60 ml/min/1.73 sqM)
[2019-08-13 05:37] LABS: Platelet Count 19 k/uL (150-450)
[2019-08-13 05:59] LABS: Potassium 5.4 mmol/L (3.5-5.1)
[2019-08-13 06:00] LABS: Blood Urea Nitrogen 29 mg/dL (9-20)
[2019-08-13 06:48] LABS: Glucose,Whole Blood 195 mg/dL (75-99)
[2019-08-13] MEDS: LEVOTHYROXINE 25 MCG TAB PO SCH (06:52)
[2019-08-13] MEDS: INSULIN ASPART (NovoLOG) 100 UNIT/ML VIAL SQ SCH ×4 (06:52→21:46)
--- NOTE | 2019-08-13 08:41 | PN ---
PROGRESS NOTE Mr. Murray is a patient with CAD, prior bypass surgery, who is now in atrial flutter. The rate is about 116. He is on a combination of oral amiodarone and oral beta blockers. His pancytopenia is persisting. His platelet count is 19, hemoglobin is low. White count is also low, but he feels better clinically overall. Vitals are stable, there is JVD 1 cm. No carotid bruit. S1-S2 heard normally. Irregular rate and rhythm noted, short systolic murmur noted. Lungs revealed diminished air entry. Abdomen is soft. Lower extremities reveal diminished pulses. Central nervous system is grossly within normal limits. I am recommending that we increase the amiodarone from 200 b.i.d. to 200 t.i.d. and continue his other medications. I will also place him on a small dose of Lasix at 20 mg p.o. b.i.d. Patient's ejection fraction is in the 30%-35% range. Overall prognosis remains guarded. Will await the results of bone marrow biopsy but clinical picture suggests that of myelodysplasia. MMODL / IJN: [id number] /
[2019-08-13] MEDS: TIMOLOL 0.5% OPHTH DROPS 5 ML BTL BOTH EYES SCH ×2 (08:56→21:47)
[2019-08-13] MEDS: METOPROLOL TARTRATE 50 MG TAB PO SCH ×2 (08:56→21:45)
[2019-08-13] MEDS: BRIMONIDINE TARTRATE 0.2% DROPS 5 ML BTL BOTH EYES SCH ×2 (08:56→21:47)
[2019-08-13] MEDS: LINAGLIPTIN 5 MG TABLET PO SCH (08:57)
[2019-08-13] MEDS: AMIODARONE 200 MG TAB PO SCH ×3 (08:57→21:45)
[2019-08-13] MEDS: SPIRONOLACTONE-HCTZ 25-25MG 1 EACH TAB PO SCH (08:57)
[2019-08-13] MEDS: LORATADINE 10 MG TAB PO SCH (08:57)
[2019-08-13] MEDS: PRAVASTATIN SODIUM 20 MG TAB PO SCH (08:58)
[2019-08-13] MEDS: FUROSEMIDE 20 MG TAB PO SCH ×2 (09:07→17:14)
[2019-08-13 12:05] LABS: Glucose,Whole Blood 214 mg/dL (75-99)
--- NOTE | 2019-08-13 12:06 | CDI ---
Documentation Clarification Form Date: 08/13/2019 11:57:07 AM From: Jessi Henry CCS, CCDS Admit Date: 08/09/2019 06:41:00 PM Patient Name: Seth Murray Visit Number: [id number] Discharge Date: ATTENTION: The Clinical Documentation Specialists (CDI) and [facility] Coding Staff appreciate your assistance in clarifying documentation. Please respond to the clarification below the line at the bottom and electronically sign. The CDI & [facility] Coding staff will review the response and follow-up if needed. Please note: Queries are made part of the Legal Health Record. If you have any questions, please contact the author of this message via ITS. Dr. Ronny Kidd: Atrial Fibrillation and Atrial Flutter is documented in the progress notes. History/Risk Factors: CAD, DM, Hypertension, ID, coronary stent, CABG '93, former smoker. Clinical Indicators: Presented on 08/08 for a bone marrow biopsy due to persistent pancytopenia, admitted for same. Per the 08/10 cardiology progress note atrial fibrillation is documented. Per the Went into atrial atrial flutter on 08/11. 08/10 EKG: R 152 sinus tachycardia, atrial flutter w/2:1 conduction. 08/10 EKG: R 103 sinus tachycardia w/1st degree AV block 08/11 EKG: R 124 Atrial flutter w/block. Treatment: INH Albuterol, IV fluid rate 50, IV fluid bolus 08/10, IV Cardizem, IV Dextrose/Water w/Amiodarone In your professional opinion, can you please clarify the type of Atrial Fibrillation & Atrial Flutter, if known? Atrial Fibrillation: o Chronic/Permanent o Paroxysmal o Persistent o Other, please specify o Unable to determine Atrial Flutter: o Typical o Atypical o Other, please specify: o Unable to determine (Last Revision: October 2017) Typical Flutter Atrial Fibrillation: Paroxysmal MTDD
[2019-08-13] MEDS: LOSARTAN 50 MG TAB PO SCH (12:45)
--- NOTE | 2019-08-13 13:06 | P.PN ---
Subjective Progress Note Date: 08/13/19 Principal diagnosis: pancytopenia, s/p BM Bx and asp In f/u pt states feeling ok, no nausea, GLADYS, abd pain, he did eat some, no acute changes in bowel or bladder, he would like to get out of bed more as he feels laying there is making him weak. No pain reported Objective - Vital Signs Vital signs: Vital Signs Temp 98.0 F 08/13/19 12:00 Pulse 104 H 08/13/19 12:00 Resp 23 08/13/19 12:00 BP 117/65 08/13/19 12:00 Pulse Ox 93 L 08/13/19 12:00 Intake & Output 08/12/19 08/13/19 08/13/19 18:59 06:59 18:59 Intake Total 750 240 Output Total 1225 1000 400 Balance -475 -1000 -160 Weight 86.4 kg Intake: IV 100 Sodium Chloride 0.9% 1, 100 000 ml @ 50 mls/hr IV . Q20H [facility] Rx#:[id number] Intake, IV Titration 150 Amount Dextrose 5% in Water 1, 150 000 ml @ 75 mls/hr IV . [id number] [facility] Rx#:[id number] Oral 500 240 Output: Urine 1225 1000 400 Other: Voiding Method Toilet Toilet Toilet Urinal Urinal Urinal # Voids 2 # Bowel Movements 1 1 - Constitutional General appearance: Present: average body habitus, cooperative, no acute distress - EENT Eyes: Present: anicteric sclerae, EOMI ENT: Present: hearing grossly normal - Respiratory Respiratory: bilateral: CTA - Cardiovascular Heart sounds: normal: S1, S2 Abnormal Heart Sounds: Absent: systolic murmur, diastolic murmur, rub, S3 Gallop, S4 Gallop, click, other - Peripheral edema leg Peripheral Edema: bilateral: None - Gastrointestinal General gastrointestinal: Present: normal bowel sounds, soft - Neurologic Neurologic: Present: CNII-XII intact - Musculoskeletal Musculoskeletal: Present: generalized weakness, strength equal bilaterally - Psychiatric Psychiatric: Present: A&O x's 3, appropriate affect, intact judgment & insight - Labs CBC & Chem 7: 08/13/19 04:51 08/13/19 04:51 Labs: Abnormal Lab Results - Last 24 Hours (Table) 08/12/19 08/12/19 08/13/19 Range/Units 16:33 21:00 02:01 WBC (3.8-10.6) k/uL RBC (4.30-5.90) m/uL Hgb (13.0-17.5) gm/dL Hct (39.0-53.0) % RDW (11.5-15.5) % Plt Count (150-450) k/uL Sodium (137-145) mmol/L Potassium (3.5-5.1) mmol/L BUN (9-20) mg/dL Glucose (74-99) mg/dL POC Glucose (mg/dL) 187 H 243 H 157 H (75-99) mg/dL 08/13/19 08/13/19 08/13/19 Range/Units 04:51 04:51 06:36 WBC 2.0 L (3.8-10.6) k/uL RBC 2.53 L (4.30-5.90) m/uL Hgb 8.1 L (13.0-17.5) gm/dL Hct 24.6 L (39.0-53.0) % RDW 16.4 H (11.5-15.5) % Plt Count 19 L* (150-450) k/uL Sodium 134 L (137-145) mmol/L Potassium 5.4 H (3.5-5.1) mmol/L BUN 29 H (9-20) mg/dL Glucose 180 H (74-99) mg/dL POC Glucose (mg/dL) 195 H (75-99) mg/dL 08/13/19 Range/Units 11:53 WBC (3.8-10.6) k/uL RBC (4.30-5.90) m/uL Hgb (13.0-17.5) gm/dL Hct (39.0-53.0) % RDW (11.5-15.5) % Plt Count (150-450) k/uL Sodium (137-145) mmol/L Potassium (3.5-5.1) mmol/L BUN (9-20) mg/dL Glucose (74-99) mg/dL POC Glucose (mg/dL) 214 H (75-99) mg/dL Assessment and Plan (1) Pancytopenia Narrative/Plan: S/P BM Bx and asp. We have preliminary results, specimen has been sent on to [facility] for further classification. RN to help me get a family meeting tomorrow between 830 and 9. No transfusions needed today Current Visit: Yes Status: Acute Priority: High Code(s): D61.818 - OTHER PANCYTOPENIA SNOMED Code(s): 406988773
[2019-08-13 17:13] LABS: Glucose,Whole Blood 135 mg/dL (75-99)
--- NOTE | 2019-08-13 17:47 | P.PN ---
Subjective No new events. Started on Lasix. Pt has no particular complaints Objective - Vital Signs Vital signs: Vital Signs Temp 98.0 F 08/13/19 15:16 Pulse 108 H 08/13/19 15:16 Resp 18 08/13/19 15:16 BP 110/67 08/13/19 15:16 Pulse Ox 95 08/13/19 15:16 Intake & Output 08/12/19 08/13/19 08/13/19 18:59 06:59 18:59 Intake Total 750 240 Output Total 1225 1000 400 Balance -475 -1000 -160 Weight 86.4 kg Intake: IV 100 Sodium Chloride 0.9% 1, 100 000 ml @ 50 mls/hr IV . Q20H [facility] Rx#:[id number] Intake, IV Titration 150 Amount Dextrose 5% in Water 1, 150 000 ml @ 75 mls/hr IV . [id number] [facility] Rx#:[id number] Oral 500 240 Output: Urine 1225 1000 400 Other: Voiding Method Toilet Toilet Toilet Urinal Urinal # Voids 0 # Bowel Movements 1 1 - Exam Vital Signs: I have reviewed the vital signs. GENERAL: Well-nourished, Well-developed , no apparent distress, cooperative Eyes: PERRL, extraoculry movements intact, clear conjunctiva Head: : Atraumatic external nose and ears, oropharyngeal mucosa is moist without lesions or exudates Neck: Symmetric, trachea midline, No thyromegaly, no masses or neck vain pulsation, no neck rigidity CVS: +S1/S2, tachycardic and irregular no significant murmurs RESP: Unlabored respiratory effort. He has some expiratory wheezes today Abdomen: Bowel sounds present in all 4 quadrants, Soft to palpation, Nontender/Nondistended, No hepatosplenomegaly, no hernias or masses, no CVA tnderness Musculoskeletal: Extremities w/o deformity, No cyanosis or clubbing, no joint swelling - Labs CBC & Chem 7: 08/13/19 04:51 08/13/19 04:51 Labs: Abnormal Lab Results - Last 24 Hours (Table) 08/12/19 08/13/19 08/13/19 Range/Units 21:00 02:01 04:51 WBC 2.0 L (3.8-10.6) k/uL RBC 2.53 L (4.30-5.90) m/uL Hgb 8.1 L (13.0-17.5) gm/dL Hct 24.6 L (39.0-53.0) % RDW 16.4 H (11.5-15.5) % Plt Count 19 L* (150-450) k/uL Sodium (137-145) mmol/L Potassium (3.5-5.1) mmol/L BUN (9-20) mg/dL Glucose (74-99) mg/dL POC Glucose (mg/dL) 243 H 157 H (75-99) mg/dL 08/13/19 08/13/19 08/13/19 Range/Units 04:51 06:36 11:53 WBC (3.8-10.6) k/uL RBC (4.30-5.90) m/uL Hgb (13.0-17.5) gm/dL Hct (39.0-53.0) % RDW (11.5-15.5) % Plt Count (150-450) k/uL Sodium 134 L (137-145) mmol/L Potassium 5.4 H (3.5-5.1) mmol/L BUN 29 H (9-20) mg/dL Glucose 180 H (74-99) mg/dL POC Glucose (mg/dL) 195 H 214 H (75-99) mg/dL 08/13/19 Range/Units 17:07 WBC (3.8-10.6) k/uL RBC (4.30-5.90) m/uL Hgb (13.0-17.5) gm/dL Hct (39.0-53.0) % RDW (11.5-15.5) % Plt Count (150-450) k/uL Sodium (137-145) mmol/L Potassium (3.5-5.1) mmol/L BUN (9-20) mg/dL Glucose (74-99) mg/dL POC Glucose (mg/dL) 135 H (75-99) mg/dL Assessment and Plan Assessment: 1. Atrial flatter with rapid ventricular response Cardiology following Not a candidate for anticoagulation due to thrombocytopenia and anemia 2. 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 Diabetes mellitus type 2 with hyperglycemia BG stable in acceptable range 4. Hypertension, controlled Norvasc discontinued and losartan started per cardiology recommendation due to low EF -metoprolol spironolactone, hctz - follow BP 5. Cardiomyopathy with EF 45-50% - diuretics, BB 6. History of coronary artery disease -Avoid aspirin with low platelet count -Continue with statin therapy 7. Wheezing Probably component of underlying COPD Chronic per patient he does not feel any discomfort Bronchodilators prn
[2019-08-13 21:26] LABS: Glucose,Whole Blood 222 mg/dL (75-99)
[2019-08-14 06:29] LABS: Glucose,Whole Blood 186 mg/dL (75-99)
[2019-08-14 06:51] LABS: Anisocytosis Slight; HCT 20.1 % (39.0-53.0); HGB 7.1 gm/dL (13.0-17.5); MCH 34.2 pg (25.0-35.0); MCHC 35.5 g/dL (31.0-37.0); MCV 96.5 fL (80.0-100.0); Macrocytosis Slight; Mean Platelet Volume 10.8; RBC 2.08 m/uL (4.30-5.90); RDW 16.6 % (11.5-15.5)
[2019-08-14 06:58] LABS: Platelet Count 13 k/uL (150-450)
[2019-08-14] MEDS: LEVOTHYROXINE 25 MCG TAB PO SCH (06:59)
[2019-08-14] MEDS: INSULIN ASPART (NovoLOG) 100 UNIT/ML VIAL SQ SCH ×2 (06:59→15:01)
[2019-08-14 07:01] LABS: WBC 1.4 k/uL (3.8-10.6)
[2019-08-14 07:08] LABS: Calcium 8.5 mg/dL (8.4-10.2); Magnesium 1.9 mg/dL (1.6-2.3); Potassium 4.8 mmol/L (3.5-5.1)
[2019-08-14] MEDS: FUROSEMIDE 20 MG TAB PO SCH (08:39)
[2019-08-14] MEDS: METOPROLOL TARTRATE 50 MG TAB PO SCH (08:40)
[2019-08-14] MEDS: SPIRONOLACTONE-HCTZ 25-25MG 1 EACH TAB PO SCH (08:40)
[2019-08-14] MEDS: LOSARTAN 50 MG TAB PO SCH (08:40)
[2019-08-14] MEDS: LINAGLIPTIN 5 MG TABLET PO SCH (08:40)
[2019-08-14] MEDS: AMIODARONE 200 MG TAB PO SCH (08:40)
[2019-08-14] MEDS: LORATADINE 10 MG TAB PO SCH (08:40)
[2019-08-14] MEDS: BRIMONIDINE TARTRATE 0.2% DROPS 5 ML BTL BOTH EYES SCH (08:41)
[2019-08-14] MEDS: TIMOLOL 0.5% OPHTH DROPS 5 ML BTL BOTH EYES SCH (08:41)
--- NOTE | 2019-08-14 08:49 | P.PN ---
Subjective Patient has no complaints particularly this morning. He was up in the room walking to the bathroom with the help 1 person assist and walker. He was not overly short of breath or any big discomfort. He continues to appear weak otherwise. His remains afebrile. He reports no any concerns or discomforts overnight. His appetite otherwise has been low. Bone marrow biopsy is indicative and suggestive of MDS and family meeting plan for today with Hem/Onc Objective - Vital Signs Vital signs: Vital Signs Temp 98.4 F 08/14/19 04:00 Pulse 109 H 08/14/19 04:00 Resp 08/14/19 04:00 BP 121/76 08/14/19 04:00 Pulse Ox 99 08/14/19 04:00 Intake & Output 08/13/19 08/14/19 08/14/19 18:59 06:59 18:59 Intake Total 240 240 236 Output Total 800 1400 100 Balance -560 -1160 136 Weight 83.4 kg Intake: Oral 240 240 236 Output: Urine 800 1400 100 Other: Voiding Method Toilet Urinal # Voids 0 6 # Bowel Movements 0 - Exam Vital Signs: I have reviewed the vital signs. GENERAL: Well-nourished, Well-developed , no apparent distress, cooperative Eyes: PERRL, extraoculry movements intact, clear conjunctiva Head: : Atraumatic external nose and ears, oropharyngeal mucosa is moist without lesions or exudates Neck: Symmetric, trachea midline, No thyromegaly, no masses or neck vain pulsation, no neck rigidity CVS: +S1/S2, tachycardic and irregular no significant murmurs RESP: Unlabored respiratory effort. Breath sounds are present throughout and no significant wheezing today Abdomen: Bowel sounds present in all 4 quadrants, Soft to palpation, Nontender/Nondistended, No hepatosplenomegaly, no hernias or masses, no CVA tnderness Musculoskeletal: Extremities w/o deformity, No cyanosis or clubbing, no joint swelling - Labs CBC & Chem 7: 08/14/19 05:20 08/14/19 05:20 Labs: Abnormal Lab Results - Last 24 Hours (Table) 08/13/19 08/13/19 08/13/19 Range/Units 11:53 17:07 21:24 WBC (3.8-10.6) k/uL RBC (4.30-5.90) m/uL Hgb (13.0-17.5) gm/dL Hct (39.0-53.0) % RDW (11.5-15.5) % Plt Count (150-450) k/uL Sodium (137-145) mmol/L BUN (9-20) mg/dL Glucose (74-99) mg/dL POC Glucose (mg/dL) 214 H 135 H 222 H (75-99) mg/dL 08/14/19 08/14/19 08/14/19 Range/Units 05:20 05:20 06:28 WBC 1.4 L* (3.8-10.6) k/uL RBC 2.08 L (4.30-5.90) m/uL Hgb 7.1 L (13.0-17.5) gm/dL Hct 20.1 L (39.0-53.0) % RDW 16.6 H (11.5-15.5) % Plt Count 13 L* (150-450) k/uL Sodium 132 L (137-145) mmol/L BUN 34 H (9-20) mg/dL Glucose 174 H (74-99) mg/dL POC Glucose (mg/dL) 186 H (75-99) mg/dL Assessment and Plan Assessment: 1. Atrial flatter with rapid ventricular response Cardiology following Not a candidate for anticoagulation due to thrombocytopenia and anemia 2. 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 Diabetes mellitus type 2 with hyperglycemia BG stable in acceptable range We discontinued his Levemir due to hypoglycemia 4. Hypertension, controlled Norvasc discontinued and losartan started per cardiology recommendation due to low EF -metoprolol spironolactone, hctz - follow BP 5. Cardiomyopathy with EF 45-50% - diuretics, BB 6. History of coronary artery disease -Avoid aspirin with low platelet count -Continue with statin therapy 7. COPD compensated 8. Failure to thrive PT/OT guarded prognosis
[2019-08-14 09:00] VITALS: RESP 18
--- NOTE | 2019-08-14 10:42 | PN ---
PROGRESS NOTE Mr. Murray remains in atrial flutter, rate is about 110. He is hemodynamically stable, sitting up and talking to his family. 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 I talked to Dr. Nicholson today. Patient is considering hospice and they are having a family conference. Cardiac-encinas we will continue same medications. Vitals are stable. JVD 1 cm. No carotid bruit. S1, S2 heard normally, irregular rate and rhythm noted. Short systolic murmur noted. Lungs reveal improved air entry. Rest of physical examination is unchanged. From a cardiac standpoint, we will continue same medications and patient is considering hospice for his hematological issues. MMODL / IJN: [id number] /
[2019-08-14 11:36] VITALS: BP 113/71; PULSE 103; TEMP 98.1
[2019-08-14 12:24] LABS: Glucose,Whole Blood 226 mg/dL (75-99)
--- NOTE | 2019-08-14 14:24 | P.DS ---
Providers Date of admission: 08/09/19 18:41 Attending physician: Christie Mclaughlin DO Consults: 08/08/19 16:09 Consult Physician Urgent Consulting Provider: Christie Mclaughlin Consult Reason/Comments: medical management Do you want consulting provider notified?: Already Contacted 08/09/19 09:06 Consult Physician Urgent Consulting Provider: Noel Nicholson Consult Reason/Comments: pancytopenia Do you want consulting provider notified?: Yes 08/10/19 07:31 Consult Physician Routine Consulting Provider: Ronny Kidd Consult Reason/Comments: tachycardia Do you want consulting provider notified?: Yes Primary care physician: Mayur Song Hospital Course: Date of discharge: 08/14/2019 Disposition: Assisted living with hospice Reason for admission: Anemia and generalized weakness Discharge diagnoses: 1. Myelodysplastic syndrome 2. Paroxysmal atrial fibrillation with RVR 3. Failure to thrive 4. Type 2 diabetes mellitus with long-term current use of insulin 5. Hypothyroidism 6. Coronary artery disease with history of CABG 7. Glaucoma 8. Hypertension Reason for admission and Hospital course: Patient is an 84-year-old male to past medical history of coronary artery disease status post CABG years ago, glaucoma, diabetes on insulin, HTN, and hypothyroidism who presented initially for elective bone marrow biopsy. Labs were taken at that point in time and showed hemoglobin of 6.7. Dr. Nicholson recommended one unit of blood and observation overnight. He was admitted for monitoring. After blood transfusion was complete nurse found blood in bed soaking sheets with IV dislodged. It was difficult to determine if IV had been leaking or if bleeding had occurred. His hemoglobin was recheck and was unchanged an additional unit of blood was ordered. Repeated HgB after one unit was unchanged. Platelets on the morning of 08/09 where 5 and 1 unit of platelets were ordered. On the morning of 08/10 he developed A fib with a 2:1 block at the rate of 150. He was given a dose of his oral metoprolol and transferred to the ICU as selective overflow. He was started on a cardizem gtt. His troponin was mildly elevated. He was unable to be safely anticoagulated due to thrombocytopenia and severe anemia After the results of bone marrow biopsy showed aggressive MDS and upon discussion with oncology patient and patient family opted to proceed with hospice. Patient will discharge to assisted living previously situation with hospice services Patient was discharge with his usual home medications. He was given albuterol and Lasix when necessary. He was given amiodarone per recommendation from cardiology and he was supposed to be on 3 times a day regimen for loading next couple weeks with the idea to eventually go to once a day. He will follow-up that further with his primary care physician and cardiology. For all this reason patient is not a candidate for anticoagulation given his severe trauma cytopenia. 45 minutes spent on this discharge Plan - Discharge Summary Discharge Rx Participant: Yes New Discharge Prescriptions: New Amiodarone [Cordarone] 200 mg PO TID #30 tab Furosemide [Lasix] 20 mg PO DAILY PRN #10 tab PRN Reason: Dyspnea Albuterol Inhaler [Ventolin Hfa Inhaler] 1 - 2 puff INHALATION RT-Q6H PRN #1 inhaler PRN Reason: Wheezing Continue Irbesartan [Avapro] 300 mg PO DAILY Spironolactone-Hctz 25-25Mg [Aldactazide 25-25 MG] 0.5 tab PO DAILY Levothyroxine Sodium [Synthroid] 25 mcg PO DAILY Desloratadine 5 mg PO DAILY Netarsudil Mesylat/Latanoprost [Rocklatan 0.02%-0.005% Eye Drp] 1 drop BOTH EYES BID Brimonidine Tartrate/Timolol [Combigan 0.2%-0.5% Eye Drops] 1 drop BOTH EYES BID Metoprolol Succinate [Toprol XL] 12.5 mg PO DAILY sitaGLIPtin PHOSPHATE [Januvia] 100 mg PO DAILY Loperamide HCl [Imodium A-D] 2 mg PO DIRECTED PRN PRN Reason: Diarrhea Calcium Carbonate [Tums] 500 mg PO QID PRN PRN Reason: Indigestion Changed Glimepiride [Amaryl] 4 mg PO QAM #0 Discontinued amLODIPine [Norvasc] 5 mg PO DAILY Pravastatin Sodium [Pravachol] 20 mg PO DAILY Niacin [Niaspan] 1,000 mg PO HS Insulin Glargine,Hum.rec.anlog [Nata Sandoval Solostar] 90 unit SQ QAM Meclizine HCl 25 mg PO DAILY Discharge Medication List Irbesartan [Avapro] 300 mg PO DAILY 12/12/14 [History] Desloratadine 5 mg PO DAILY 01/26/19 [History] Levothyroxine Sodium [Synthroid] 25 mcg PO DAILY 01/26/19 [History] Spironolactone-Hctz 25-25Mg [Aldactazide 25-25 MG] 0.5 tab PO DAILY 01/26/19 [History] Brimonidine Tartrate/Timolol [Combigan 0.2%-0.5% Eye Drops] 1 drop BOTH EYES BID 07/31/19 [History] Netarsudil Mesylat/Latanoprost [Rocklatan 0.02%-0.005% Eye Drp] 1 drop BOTH EYES BID 07/31/19 [History] Calcium Carbonate [Tums] 500 mg PO QID PRN 08/07/19 [History] Loperamide HCl [Imodium A-D] 2 mg PO DIRECTED PRN 08/07/19 [History] Metoprolol Succinate [Toprol XL] 12.5 mg PO DAILY 08/07/19 [History] sitaGLIPtin PHOSPHATE [Januvia] 100 mg PO DAILY 08/07/19 [History] Albuterol Inhaler [Ventolin Hfa Inhaler] 1 - 2 puff INHALATION RT-Q6H PRN #1 inhaler 08/14/19 [Rx] Amiodarone [Cordarone] 200 mg PO TID #30 tab 08/14/19 [Rx] Furosemide [Lasix] 20 mg PO DAILY PRN #10 tab 08/14/19 [Rx] Glimepiride [Amaryl] 4 mg PO QAM #0 08/14/19 [Rx] Follow up Appointment(s)/Referral(s): Noel Nicholson MD [STAFF PHYSICIAN] - As Needed (Office will call to schedule follow- up once biopsy results are available) Patient Instructions/Handouts: Hospice (DC) Activity/Diet/Wound Care/Special Instructions: Activity as tolerated. Daughter has been instructed to watch for complications such as unusual swelling, pain, fever or bleeding, as well as extremity weakness or numbness If the patient is doing well, can remove the bandage in the evening and then shower No aspirin, Plavix, anticoagulants, or NSAIDs due to low platelets Discharge Disposition: HOME WITH HOSPICE
--- NOTE | 2019-08-14 23:36 | P.PN ---
Subjective Progress Note Date: 08/14/19 Patient has been transferred out of the ICU to the floor. He remains quite weak overall. He is able to ambulate short distances with support. Gets out of breath easily with minimal effort. Appetite is diminished. No fever/chills/nausea/vomiting Objective - Vital Signs Vital signs: Vital Signs Temp 98.1 F 08/14/19 11:33 Pulse 103 H 08/14/19 11:33 Resp 18 08/14/19 11:33 BP 113/71 08/14/19 11:33 Pulse Ox 99 08/14/19 11:33 Intake & Output 08/14/19 08/14/19 08/15/19 06:59 18:59 06:59 Intake Total 240 236 Output Total 1400 100 Balance -1160 136 Weight 83.4 kg Intake: Oral 240 236 Output: Urine 1400 100 Other: Voiding Method Urinal Urinal # Voids 6 2 # Bowel Movements 1 - Constitutional General appearance: Present: no acute distress - EENT Eyes: Present: EOMI ENT: Present: hearing grossly normal, normal oropharynx - Respiratory Respiratory: bilateral: diminished - Cardiovascular Rhythm: irregularly irregular Heart sounds: normal: S1, S2 - Gastrointestinal General gastrointestinal: Present: normal bowel sounds, soft - Integumentary Integumentary: Present: normal - Neurologic Neurologic: Present: CNII-XII intact - Musculoskeletal Musculoskeletal: Present: generalized weakness - Psychiatric Psychiatric: Present: A&O x's 3 - Labs CBC & Chem 7: 08/14/19 05:20 08/14/19 05:20 Labs: Abnormal Lab Results - Last 24 Hours (Table) 08/13/19 08/14/19 08/14/19 Range/Units 21:24 05:20 05:20 WBC 1.4 L* (3.8-10.6) k/uL RBC 2.08 L (4.30-5.90) m/uL Hgb 7.1 L (13.0-17.5) gm/dL Hct 20.1 L (39.0-53.0) % RDW 16.6 H (11.5-15.5) % Plt Count 13 L* (150-450) k/uL Sodium 132 L (137-145) mmol/L BUN 34 H (9-20) mg/dL Glucose 174 H (74-99) mg/dL POC Glucose (mg/dL) 222 H (75-99) mg/dL 08/14/19 08/14/19 Range/Units 06:28 12:23 WBC (3.8-10.6) k/uL RBC (4.30-5.90) m/uL Hgb (13.0-17.5) gm/dL Hct (39.0-53.0) % RDW (11.5-15.5) % Plt Count (150-450) k/uL Sodium (137-145) mmol/L BUN (9-20) mg/dL Glucose (74-99) mg/dL POC Glucose (mg/dL) 186 H 226 H (75-99) mg/dL Assessment and Plan (1) Pancytopenia Narrative/Plan: Preliminary report on the bone marrow aspiration biopsy has been issued. Final report is not yet available as a sample has been sent to the [facility] for second opinion. The patient has evidence of significant m yelodysplasia, with excess blasts. Also a possibility of overt acute leukemia, to check for which the sample has been sent to the [facility]. The report and implications were discussed in detail with the patient and multiple family members . Even if overt acute leukemia is not present, this is a very aggressive process, rapid decline in counts and performance status. Ideally this would need aggressive treatment, including referral to bone marrow transplant however the patient is not a candidate for aggressive treatment, given his age, other medical problems and current performance status, he is not a candidate for the same. At best, he would be a borderline candidate in terms of tolerance even for less aggressive therapy, such as with a HMA. They were advised that this line of treatment would typically have about a 50% chance of response at best, with overall increase in life expectancy by about 6-8 months on average. Possible side effects, including delay by up to 3-4 cycles prior to response, during which time significant cytopenia could worsen, and increased need for transfusions, were discussed. Overall given the above, it is felt that his prognosis is quite guarded, and his chances of clinical benefit from active treatment would be overall comparatively low compared to possible adverse effects Then multiple questions which were answered to the best of my ability. Based on the above, comfort care was also discussed. There were in agreement that they would most likely opt for comfort care. Logistics were discussed. Based on the request, Dr. Song was contacted the case discussed with him. The patient and his family would like to contact to the children and then finalize their decision. Information visit will then be set up Case was also discussed with cardiology Status: Acute Priority: High Code(s): D61.818 - OTHER PANCYTOPENIA SNOMED Code(s): 028904412
--- NOTE | 2019-08-22 10:25 | CDI ---
Documentation Clarification Form Date: 08/22/19 From: Briana Heath Phone: If you have a question about this query, please contact Jennifer Patricia, Truck Rental Clerk at [phone] between 8am and 5pm. Admit Date: 08/09/19 Discharge Date: 08/14/19 Patient Name: Seth Murray Visit Number: [id number] ATTENTION: The Clinical Documentation Specialists (CDI) and [facility] Coding Staff appreciate your assistance in clarifying documentation. Please respond to the clarification below the line at the bottom and electronically sign. The CDI & [facility] Coding staff will review the response and follow-up if needed. Please note: Queries are made part of the Legal Health Record. If you have any questions, please contact the author of this message via ITS. Dear Dr. Anatoliy Claudio, The final diagnosis of the 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 Patient history/risk factors: pulmonary HTN, adult failure to thrive, DM Type II, HTN, COPD.ischemic cardiomyopathy, CAD, hypothyroidism, hx NE Treatment: palliative care, DNR 1. In your professional opinion, do you agree with the [facility] pathology report specifying acute myeloid leukemia (AML)? Unable to determine 2. Is AML the reason for admission after study? No MTDD
== END 2019-08-14 16:15 | disposition hospice, inpatient (51) | DRG 809 ==
LOC: OR 11:58 → 5NMEDONC 16:27 → OR 08-09 18:41 → 2SICU 08-10 08:15 → 3SCARD 08-13 12:17
PROVIDERS: ADMIT Internal Medicine; ATTEND Internal Medicine
PROC: 30233N1 Transfusion of Nonautologous Red Blood Cells into Peripheral Vein, Percutaneous Approach (ICD-10-PCS; 2019-08-08)
PROC: 07DR3ZX Extraction of Iliac Bone Marrow, Percutaneous Approach, Diagnostic (ICD-10-PCS; principal; 2019-08-08 13:00)
PROC: 30233R1 Transfusion of Nonautologous Platelets into Peripheral Vein, Percutaneous Approach (ICD-10-PCS; 2019-08-09)
DX: D61.818 Other pancytopenia (principal); I48.3 Typical atrial flutter; D46.9 Myelodysplastic syndrome, unspecified; Z51.5 Encounter for palliative care; Z66 Do not resuscitate; D69.2 Other nonthrombocytopenic purpura; I27.20 Pulmonary hypertension, unspecified; I95.9 Hypotension, unspecified; R62.7 Adult failure to thrive; I48.0 Paroxysmal atrial fibrillation; E11.65 Type 2 diabetes mellitus with hyperglycemia; E11.39 Type 2 diabetes mellitus with other diabetic ophthalmic complication; H42 Glaucoma in diseases classified elsewhere; H40.9 Unspecified glaucoma; I25.5 Ischemic cardiomyopathy; J44.9 Chronic obstructive pulmonary disease, unspecified; E03.9 Hypothyroidism, unspecified; I10 Essential (primary) hypertension; I34.0 Nonrheumatic mitral (valve) insufficiency; I25.10 Atherosclerotic heart disease of native coronary artery without angina pectoris; I25.2 Old myocardial infarction; L98.9 Disorder of the skin and subcutaneous tissue, unspecified; Z79.4 Long term (current) use of insulin; Z79.890 Hormone replacement therapy; Z79.899 Other long term (current) drug therapy; Z87.891 Personal history of nicotine dependence; Z95.1 Presence of aortocoronary bypass graft; Z99.3 Dependence on wheelchair; Z95.5 Presence of coronary angioplasty implant and graft; Z89.012 Acquired absence of left thumb; Z89.022 Acquired absence of left finger(s); Z98.890 Other specified postprocedural states; Z88.8 Allergy status to other drugs, medicaments and biological substances; Z82.49 Family history of ischemic heart disease and other diseases of the circulatory system; Z80.9 Family history of malignant neoplasm, unspecified; Z82.3 Family history of stroke; Z81.8 Family history of other mental and behavioral disorders
CPT/HCPCS: 38222; 71045; 80048; 80053; 83010; 83615; 83735; 84100; 84439; 84443; 84484; 84550; 85025; 85027; 85045; 85384; 85610; 86850; 86900; 86901; 86920; 93005; 93308; 94640; 94760